=== PATIENT | female | born 1950 | race Caucasian/White ===

== ENCOUNTER → 2020-09-29 10:54 | Outpatient (CLI) | payer BC, MEDICARE, SELFPAY ==
--- NOTE | ~2020-09-29 | US_ITS ---
US pelvic limited 09/29/2020 11:17 Indication: Dysuria. Painful micturition. Procedure: High-resolution ultrasound of the bladder pre and postvoid Comparison: No prior studies for comparison. Findings: Bladder wall is unremarkable without focal mass. Prevoid volume is 86 cc. Postvoid volume i s 3 cc. Impression: 1: Minimal post void residual measuring 3 cc. Reviewed, dictated and finalized at location A. PRIVATE DUTY Impression: 1: Minimal post void residual measuring 3 cc.
== END ==
PROVIDERS: Visit Provider Internal Medicine
DX: R30.9 Painful micturition, unspecified (principal)
CPT/HCPCS: 76857

== ENCOUNTER 2021-05-07 17:32 | Outpatient (CLI) | payer BC, MEDICARE, SELFPAY ==
--- NOTE | ~2021-05-07 | MM_ITS ---
EXAMINATION: MM screening [facility] w [facility] HISTORY: Screening mammogram, family history of breast cancer in her mother. TECHNIQUE: Craniocaudal and mediolateral oblique 3-D tomosynthesis images were obtained and synthetic 2-D images were generated. CAD analysis was submitted and interpreted. COMPARISON: 09/08/2019, 09/02/2018, 08/20/2017 BREAST PARENCHYMAL COMPOSITION: The breasts are almost entirely fatty. FINDINGS: There is no evidence of suspicious mass, calcification, or architectural distortion to sugg est malignancy in either breast. There has been no suspicious interval change. IMPRESSION: 1. No mammographic evidence of malignancy. 2. Recommend routine screening mammography in one year. BI-RADS Category 1: Negative Reviewed, dictated and finalized at location A.
== END 2021-05-07 17:33 | disposition home or self-care (01) ==
PROVIDERS: PCP Internal Medicine; Visit Provider Internal Medicine
DX: Z12.31 Encounter for screening mammogram for malignant neoplasm of breast (principal)
CPT/HCPCS: 77063; 77067

== ENCOUNTER 2022-06-24 15:57 | Outpatient (CLI) | payer BC, MEDICARE, SELFPAY ==
--- NOTE | ~2022-06-24 | MM_ITS ---
EXAMINATION: MM screening [facility] BI w georges HISTORY: Screening TECHNIQUE: Craniocaudal and mediolateral oblique 3-D tomosynthesis images were obtained and synthetic 2-D images were generated. CAD analysis was submitted and interpreted. COMPARISON: Comparison to multiple prior studies sequentially, with oldest reviewed study dated 07/15. BREAST PARENCHYMAL COMPOSITION: There are scattered areas of fibroglandular density. FINDINGS: There is no evidence of suspicious mass, calcification, or architectural distortion to sugg est malignancy in either breast. There has been no suspicious interval change. IMPRESSION: 1. No mammographic evidence of malignancy. 2. Recommend routine screening mammography in one year. BI-RADS Category 1: Negative Reviewed, dictated and finalized at location A.
== END 2022-06-24 15:58 | disposition home or self-care (01) ==
PROVIDERS: PCP Internal Medicine; Visit Provider Internal Medicine
DX: Z12.31 Encounter for screening mammogram for malignant neoplasm of breast (principal)
CPT/HCPCS: 77063; 77067

== ENCOUNTER 2024-03-10 15:29 | Outpatient (CLI) | payer BC, MEDICARE, SELFPAY ==
--- NOTE | ~2024-03-10 | MM_ITS ---
EXAMINATION: MM screening [facility] w [place] HISTORY: Screening mammogram, family history of breast cancer in her mother. TECHNIQUE: Craniocaudal and mediolateral oblique 3-D tomosynthesis images were obtained and synthetic 2-D images were generated. CAD analysis was submitted and interpreted. COMPARISON: 06/24/2022, 05/07/2021, 09/08/2019 BREAST PARENCHYMAL COMPOSITION:Not Dense. There are scattered areas of fibroglandular density. FINDINGS: No suspicious mass, calcification, or architectural distortion are identified in either rafia ast to suggest malignancy. There has been no suspicious interval change. IMPRESSION: No mammographic evidence of malignancy. Recommend routine screening mammography in one year. BI-RADS Category 1: Negative Reviewed, dictated and finalized at location .
== END 2024-03-10 15:30 | disposition home or self-care (01) ==
LOC: ANHIMG 15:31
PROVIDERS: PCP Internal Medicine; Visit Provider Internal Medicine
DX: Z12.31 Encounter for screening mammogram for malignant neoplasm of breast (principal)
CPT/HCPCS: 77063; 77067

== ENCOUNTER 2025-04-06 16:00 | Outpatient (CLI) | payer MEDICARE, BC, OTHER, SELFPAY ==
--- NOTE | ~2025-04-06 | MM_ITS ---
EXAMINATION: MM screening ritesh BI w georges HISTORY: Screening TECHNIQUE: Craniocaudal and mediolateral oblique 3-D tomosynthesis images were obtained and synthetic 2-D images were generated. CAD analysis was submitted and interpreted. COMPARISON: Comparison to multiple prior studies sequentially, with oldest reviewed study dated 08/20. BREAST PARENCHYMAL COMPOSITION: The breasts are almost entirely fatty. FINDINGS: There is no evidence of suspicious mass, calcification, or architectural distortion to sug gest malignancy in either breast. Scattered benign-appearing calcifications are present. IMPRESSION: 1. No mammographic evidence of malignancy. 2. Recommend routine screening mammography in one year. BI-RADS Category 2: Benign finding(s). Reviewed, dictated and finalized at location B.
--- OUTSIDE RECORDS SUMMARY | 2025-04-06 16:06 | XMS_ITS | Clinical Summary ---
Author Organization [facility] Address [address] [place] [address] Care Team Providers Care Farm Management Agent Name Role Phone Jocelyn Zamorano MD Primary Care Provider [phone] Allergies Active Allergy Reactions Criticality Noted Date Comments Cephalexin Rash Medium 11/12/2020 Codeine Unknown,Rash Medium 01/31/2020 Doxycycline Nausea Only 08/05/2024 Epinephrine Unknown,Other (see comment) High 1978 Severe Shakiness/tremors Erythromycin Unknown,Rash Medium 01/31/2020 Lisinopril Cough Low 10/31/2021 Penicillins Hives,Swelling Medium 01/31/2020 Simvastatin Joint Pain,Other (se e comment) Low 01/31/2020 Sulfa Antibiotics Hives,Unknown Medium 01/31/2020 Medications atorvastatin (LIPITOR) 40 MG tablet Take 1 tablet (40 mg total) by mouth nightly at bedtime. 4 Active buPROPion (WELLBUTRIN) 75 MG tablet Take 1 tablet (75 mg total) by mouth every morning. 4 Active vitamin D2, ergocalciferol, (DRISDOL) 1.25 mg capsule Take 1 capsule (50,000 Units total) by mouth. 4 Active fluticasone propionate (FLONASE) 50 MCG/ACT nasal spray [place] 1 spray every day by intranasal route. 4 Active levothyroxine (SYNTHROID) 88 MCG tablet Take 1 tablet (88 mcg total) by mouth every morning. 4 Active iron polysacch [id number] (POLY-IRON 150 FORTE) 150-0.025-1 MG Cap capsule Take 1 capsule by mouth every other day. 4 Active losartan (COZAAR) 50 MG tablet Take 1 tablet (50 mg total) by mouth daily. 4 Active metFORMIN (GLUCOPHAGE) 500 MG tablet Take 1 tablet twice a day by oral route for 90 days. 4 Active senna-docusate (SENOKOT-S) 8.6-50 MG tablet Take 1 tablet by mouth daily. Active vitamin B-12 (CYANOCOBALAMIN ) (CYANOCOBALAMIN ) 1000 mcg tablet Take 1 tablet (1,000 mcg total) by mouth daily. 5 Active sucralfate (CARAFATE) 1 G tablet TAKE 1 TABLET BY MOUTH TWICE DAILY OK TO CUT IN HALF OR CRUSH IF NEEDED 5 Active omeprazole (PRILOSEC) 40 MG capsule Take 1 capsule (40 mg total) by mouth 2 (two) times a day. 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 11/18/2023 Hypocalcemia 01/13/2023 Obstructive sleep apnea of adult 01/12/2023 Sleep apnea 08/09/2022 Overview (08/05/2024): on sleep study 08/06/22 Iron deficiency 04/25/2022 Anemia 04/05/2022 Allergic rhinitis due to pollen 04/01/2022 Arthralgia of left ankle 04/01/2022 History of severe acute resp iratory syndrome coronavirus 2 (SARS-CoV-2) disease 04/01/2022 Mixed stress and urge urinary incontinence 04/01 Fatigue 06/20/2021 Nonalcoholic fatty liver 04/07/2021 Overactive bladder 03/20/2021 Snoring 03/20/2021 History of transcatheter aortic valve replacemen t (TAVR) 01/30/2021 DM (diabetes mellitus) ([facility]) 021 Increased frequency of urination 10/14/2020 Left hemiparesis ([facility]) 09/09/2020 Carotid artery stenosis 07/14/2020 Chronic constipation 06/11/2020 Nonrheumatic aortic valve stenosis 04/11/2020 Overview (08/05/2024): nonrheumatic S/P TAVR 12/10/20 Hemiparesis affecting left s noe as late effect of stroke ([facility]) 04/04/2020 Hypothyroidism 04/04/2020 Overweight 04/04/2020 Vitamin D deficiency 04/04/2020 Swelling of upper extremity 03/22/2020 History of cerebrovascular accident 03/12/2020 Hyperlipidemia 03/12/2020 Peripheral vascular disease 07/10/2019 Overview (08/05/2024): MILD on CARLOS A 06/08/19 Osteoarthritis of knee 06/09/2019 Solitary pulmonary nodule 12/09/2018 Gastroesophageal reflux disease without esophagi tis 11/17/2018 Benign hypertension 07/22/2017 Atherosclerosis of aorta 04/27/2017 Overview (08/05/2024): on CXR 04/27/17 History of malignant neoplasm of colon 6 Encounters Date Type Department Care Team Description 02/15/2025 1:30 PM CDT Office Visit [facility] [address] [address] Karson Cabral MD Hypertension (Follow up); Aortic Valve Stenosis; Cva 02/15/2025 Travel 02/09/2025 Results Follow-Up [facility] [address] [address] Telma Butt RN USE ECHOCARDIOGRAM 02/07/2025 1:14 PM CDT - 02/07/2025 11:59 PM CDT Hospital Encounter [facility] [place] [address] Karson Cabral MD Discharge Disposition: Home or Self Care (Routine Discharge) 02/07/2025 Travel from Last 3 Months Social History Tobacco Use Types Packs/Day Years Used Date Smoking Tobacco: Every Day Cigarettes Smokeless Tobacco: Never Tobacco Cessation:Ready to Q uit: Not Asked; Counseling Given: Not Answered Alcohol Use Standard Drinks/Week Comments Not Currently 0 (1 standard drink = 0.6 oz pur e alcohol) Comments Unknown Sex and Gender Information Value Date Recorded Sex Assigned at Female 02/07/2025 1:10 PM CDT Legal Sex Female 5:07 PM CDT Gender Identity Not on file Sexual Orientation Not on file Last Filed Vital Signs Vital Sign Reading Time Taken Comments Blood Pressure 126/62 02/15/2025 1:27 PM CDT Pulse 68 02/15/2025 1:27 PM CDT Temperature - - Respiratory Rate - - Oxygen Saturation 97% 02/15/2025 1:27 PM CDT Inhaled Oxygen Concentration - - Weight 86.6 kg (191 lb) 02/15/2025 1:27 PM CDT Height 154.9 cm (5' 1) 02/15/2025 1:27 PM CDT Body Mass Index 36.09 02/15/2025 1:27 PM CDT Plan of Treatment Upcoming Encounters Date Type Department Care Team (Late st Contact Info) Description 08/23/2025 1:30 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 [address] [place] [address] Carissa Mancini FNP [address] [facility] [address] [place] [address] Health Maintenance Due Date Last Done Comments ASCVD LDL 1950 Colorectal Cancer Screening Colonoscopy (10 Years) 1950 Kidney Health Evaluation 1950 Lipid Panel 1950 Diabetes: Retinopathy Eye Exam 1967 Hepatitis C 1967 DTaP, Tdap and Td Vaccines (1 - Tdap) 1968 Pneumococcal Vaccine: 50+ Years (1 of 2 - PCV) 1968 Zoster Vaccines (1 of 2) 1999 Annual Medicare Wellness Visit 2014 Dexa Scan (General) 2014 Hemoglobin A1C 05/02/2020 01/31/2020 COVID-19 Vaccine ( season) 2024 07/03/2023, 07/06/2022, 06/28/2021, Additional history exists RSV Immunization or 60+ Years (1 - 1-dose 75+ series) 2024 Meningococcal B Vaccine Aged Out No l onger eligible based on patient's age to complete this topic Meningococcal Vaccine Aged Out No gayathri cristo eligible based on patient's age to complete this topic RSV Immunizations Under 20 Months Aged Out No longer eligible based on patient's age to complete this topic Procedures Procedure Name Priority Date/Time Associated Diagnosis Comments USE ECHOCARDIOGRAM Routine 02/07/2025 2: 34 PM CDT S/P TAVR (transcatheter aortic valve replacement) from Last 3 Months Results * USE ECHOCARDIOGRAM (02/07/2025 2:34 PM CDT) Anatomical Region Laterality Modality Cardiac Echocardiogram 02/07/2025 1:56 PM CDT Narrative 02/09/2025 4:04 PM CDT Echocardiography Report Pat.Name: VEDA SORIA Pat.ID: [id number] St.Date: 02/07/2025 Refer.: [id number] JORDY LUZ EWDPROV EWDPROV Exam Time: 1:56:00 PM Study Type:ECHO WITH CARDIAC DOPPLER COMP Height: 61 in Weight: 181 lb BSA: 1.81 m2 Age: 11 1950,74Y Sex: F BP: 144/77 HR: 63 bpm Sonogrphr: Casandra Altman Pat. Stat.:Outpatient Reason for Study:S/P TAVR Procedures: 2D, M-mode, Doppler, Color Flow, The study quality is technically adequate. Race: W ++++++++++++++++++++++++++++++++++++ SUMMARY: ++++++++++++++++++++++++++++++++++++ Left ventricle is normal in size and systolic function Estimated EF of 55-60% Mild LVH Right ventricle is normal in size and systolic function Well functioning TAVR Normal estimated pulmonary pressures. ++++++++++++++++++++++++++++++++++++ FINDINGS: ++++++++++++++++++++++++++++++++++++ LV: The left ventricular size is normal. The left ventricular systolic function is normal. Estimated left ventricular ejection fraction is 55-60%. Mild concentric left ventricular hypertrophy. Left ventricular diastolic function is abnormal (grade 1 - impaired relaxation). WM: Wall motion appears normal in all segments. RV: The right ventricular size is normal. Right ventricular systolic function is normal. IVS: No evidence of ventricular septal defect. LA: The left atrial size is normal. The left atrial volume is normal ( less than 34 ml/M2). RA: Right atrial size is normal. IAS: Atrial septum appears intact. DILIA: No evidence of pericardial effusion. AO: Normal aortic root. PA: Estimated right atrial pressure of 3 mmHg. SVn: Inferior vena cava is normal. AV: The peak velocity across the aortic valve measures 3.08m/sec with a peak gradient of 49.1mmHg and a mean gradient of 23.8mmHg. The calculated aortic valve area is 1.71cm2. Aortic valve prosthesis visualized. No evidence of dilia-prosthetic aortic valve regurgitation. No evidence of central prosthetic aortic valve regurgitation. MV: Trace mitral regurgitation. No evidence of mitral valve stenosis. PV: No evidence of pulmonic valve stenosis. No evidence of pulmonic regurgitation. TV: A trace of tricuspid regurgitation. Right ventricular systolic pressure is <20 mmHg. No evidence of tricuspid valve stenosis. ++++++++++++++++++++++++++++++++++++ MEASUREMENTS: ++++++++++++++++++++++++++++++++++++ DOPPLER LVOT LVOTpkPG 13.2 mmHg LVOT SV 220 ml LVOT TVI 48 cm PSV 182 cm/s LVOTmnPG 7.6 mmHg AV Forward Flow AV TVI 77.1 cm AV pkPG 49 mmHg AV pkVel 350 cm/s (100-170)* Area (TVI) 2.86 cm2 (3-5)* AV mnPG 23.8 mmHg Area (Adrien) 2.39 cm2 (3-5)* MV Forward Flow MV pkE 82 cm/s (60-130) MV pkA 99 cm/s PV Forward Flow PV pkVel 87 cm/s (60-90)+ PV AC 110 msec PV pkPG 3 mmHg TV Regurg Flow TV pkPG 16.8 mmHg TV pkVel 205 cm/s (30-70)* TV Forward Flow TV pkE 40 cm/s Lat E' Lat e 9.21 cm/s Lat E/E' Lat E/e 8.9 Med E' Med e 8.82 cm/s Med E/E' Med E/e 9.3 AV Antegrade Flow AV AC/ET 0.21 Ratio of LVOT M 0.52 AC 68 millisecond Ratio of LVOT V 0.622 AV ET 327 millisecond Left Atrium CO 2.6 l/min CO 0.6 l/min Left Atrial Eje 54.7 % Left Atrial Eje 23 % Major [place] (End 4.3 cm Major [place] (End 4.7 cm Left Atrial ED 19.8 ml/m2 Left Atrial ED 17.6 ml/m2 Major [place] (End 5.4 cm Major [place] (End 5.2 cm Left Atrial ES 43.7 ml/m2 Left Atrial ES 22.9 ml/m2 Global Longitud 24.5 % Global Longitud 12.8 % HR 59 bpm HR 58 bpm SV 23.9 ml/m2 SV 5.2 ml/m2 LA Biplane CO 1.4 l/min Left Atrial ES 32.3 ml/m2 Left Atrial Eje 39.7 % Global Longitud 18.7 % Major [place] (End 4.7 cm HR 59 bpm Left Atrial ED 19.5 ml/m2 SV 12.8 ml/m2 Major [place] (End 5.4 cm Left Ventricle Left Ventricula 193 mmHg SV 32.5 ml/m2 MV Pk Adrien to LV 9.09 CO 4.2 l/min CO 3.5 l/min LVEF 51.8 % LVEF 53.3 % Left Ventricle 8.7 cm Left Ventricle 8.1 cm LVEDV 76.5 ml/m2 LVEDV 61 ml/m2 Left Ventricle 7.2 cm Left Ventricle 6.8 cm LVESV 36.9 ml/m2 LVESV 28.5 ml/m2 Global Longitud -18.9 % Global Longitud -19.2 % HR 58 bpm HR 59 bpm LV Mass 68.6 g/m2 LV Mass 44.9 g/m2 SV 39.6 ml/m2 LV Biplane CO 4 l/min LVESV 33.3 ml/m2 LVEF 53.1 % Global Longitud -19.1 % Left Ventricle 8.7 cm HR 59 bpm LVEDV 71 ml/m2 LV Mass 56.1 g/m2 Left Ventricle 7.2 cm SV 37.7 ml/m2 LV Triplane Global Longitud -19 % MV Antegrade Flow Mitral Valve A 1.21 MV E Decel time 283 millisecond MV E/A 0.83 PV Antegrade Flow Acceleration Sl 698 cm/s2 Right Atrium CO 2.1 l/min Volume (Systole 34.5 ml/m2 Cardiac ejectio 59.1 % Global Longitud 39.5 % Major [place] (End 3.2 cm HR 58 bpm Volume (Diastol 14.1 ml/m2 SV 20.4 ml/m2 Major [place] (End 5 cm Right Ventricle Right Ventricul 10.7 centimeters per second Right Ventricul 28.5 % Right Ventricul 13.6 square centimeters per square meter Global Longitud -12.1 % Major [place] (End 8.2 cm Global Longitud -16.7 % Major [place] (End 7.3 cm Global Longitud -6.1 % Right Ventricul 9.8 square centimeters per square meter HR 58 bpm 2D LVPW LVPWd 1.07 cm Left Atrium LA a-p 3.62 cm (2.8-3.4)* Major [place] (Sys 5.33 cm End Diastolic A 0.82 Diameter (Systo 2 cm/m2 Ratios IVS Ventricular Septum IVSd 1.04 cm Left Ventricle LVIDd 4.22 cm (4.3-5.1)* LV Mass 149 gram LVIDs 2.95 cm (2-4) Left Ventricle 0.51 Aorta AO Dd 1.64 cm LA Single Plane Left Atrium Are 15.8 cm2 LVOT Cardiovascular 4.6 cm2 Cardiovascular 2.42 cm Right Atrium Major [place] (Sys 4.03 cm RA Single Plane Right Atrium Ar 12 cm2 Volume (Systole 15.9 ml/m2 Right Ventricle Major [place] (Maria Dolores 2.36 cm RVIDd 3.78 cm MMODE Tricuspid Valve Tricuspid annul 2.36 cm <Electronic Signature> 02/09/2025 04:04 PM Karosn Cabral M.D. Procedure Note Karson Cabral MD - 02/09/2025 Echocardiography Report Pat.Name: VEDA SORIA Pat.ID: [id number] St.Date: 02/07/2025 Refer.: [id number] JORDY LUZ EWDPROV EWDPROV Exam Time: 1:56:00 PM Study Type:ECHO WITH CARDIAC DOPPLER COMP Height: 61 in Weight: 181 lb BSA: 1.81 m2 Age: 11 1950,74Y Sex: F BP: 144/77 HR: 63 bpm Sonogrphr: Casandra Altman Pat. Stat.:Outpatient Reason for Study:S/P TAVR Procedures: 2D, M-mode, Doppler, Color Flow, The study quality is technically adequate. Race: W ++++++++++++++++++++++++++++++++++++ SUMMARY: ++++++++++++++++++++++++++++++++++++ Left ventricle is normal in size and systolic function Estimated EF of 55-60% Mild LVH Right ventricle is normal in size and systolic function Well functioning TAVR Normal estimated pulmonary pressures. ++++++++++++++++++++++++++++++++++++ FINDINGS: ++++++++++++++++++++++++++++++++++++ LV: The left ventricular size is normal. The left ventricular systolic function is normal. Estimated left ventricular ejection fraction is 55-60%. Mild concentric left ventricular hypertrophy. Left ventricular diastolic function is abnormal (grade 1 - impaired relaxation). WM: Wall motion appears normal in all segments. RV: The right ventricular size is normal. Right ventricular systolic function is normal. IVS: No evidence of ventricular septal defect. LA: The left atrial size is normal. The left atrial volume is normal ( less than 34 ml/M2). RA: Right atrial size is normal. IAS: Atrial septum appears intact. DILIA: No evidence of pericardial effusion. AO: Normal aortic root. PA: Estimated right atrial pressure of 3 mmHg. SVn: Inferior vena cava is normal. AV: The peak velocity across the aortic valve measures 3.08m/sec with a peak gradient of 49.1mmHg and a mean gradient of 23.8mmHg. The calculated aortic valve area is 1.71cm2. Aortic valve prosthesis visualized. No evidence of dilia-prosthetic aortic valve regurgitation. No evidence of central prosthetic aortic valve regurgitation. MV: Trace mitral regurgitation. No evidence of mitral valve stenosis. PV: No evidence of pulmonic valve stenosis. No evidence of pulmonic regurgitation. TV: A trace of tricuspid regurgitation. Right ventricular systolic pressure is <20 mmHg. No evidence of tricuspid valve stenosis. ++++++++++++++++++++++++++++++++++++ MEASUREMENTS: ++++++++++++++++++++++++++++++++++++ DOPPLER LVOT LVOTpkPG 13.2 mmHg LVOT SV 220 ml LVOT TVI 48 cm PSV 182 cm/s LVOTmnPG 7.6 mmHg AV Forward Flow AV TVI 77.1 cm AV pkPG 49 mmHg AV pkVel 350 cm/s (100-170)* Area (TVI) 2.86 cm2 (3-5)* AV mnPG 23.8 mmHg Area (Adrien) 2.39 cm2 (3-5)* MV Forward Flow MV pkE 82 cm/s (60-130) MV pkA 99 cm/s PV Forward Flow PV pkVel 87 cm/s (60-90)+ PV AC 110 msec PV pkPG 3 mmHg TV Regurg Flow TV pkPG 16.8 mmHg TV pkVel 205 cm/s (30-70)* TV Forward Flow TV pkE 40 cm/s Lat E' Lat e 9.21 cm/s Lat E/E' Lat E/e 8.9 Med E' Med e 8.82 cm/s Med E/E' Med E/e 9.3 AV Antegrade Flow AV AC/ET 0.21 Ratio of LVOT M 0.52 AC 68 millisecond Ratio of LVOT V 0.622 AV ET 327 millisecond Left Atrium CO 2.6 l/min CO 0.6 l/min Left Atrial Eje 54.7 % Left Atrial Eje 23 % Major [place] (End 4.3 cm Major [place] (End 4.7 cm Left Atrial ED 19.8 ml/m2 Left Atrial ED 17.6 ml/m2 Major [place] (End 5.4 cm Major [place] (End 5.2 cm Left Atrial ES 43.7 ml/m2 Left Atrial ES 22.9 ml/m2 Global Longitud 24.5 % Global Longitud 12.8 % HR 59 bpm HR 58 bpm SV 23.9 ml/m2 SV 5.2 ml/m2 LA Biplane CO 1.4 l/min Left Atrial ES 32.3 ml/m2 Left Atrial Eje 39.7 % Global Longitud 18.7 % Major [place] (End 4.7 cm HR 59 bpm Left Atrial ED 19.5 ml/m2 SV 12.8 ml/m2 Major [place] (End 5.4 cm Left Ventricle Left Ventricula 193 mmHg SV 32.5 ml/m2 MV Pk Adrien to LV 9.09 CO 4.2 l/min CO 3.5 l/min LVEF 51.8 % LVEF 53.3 % Left Ventricle 8.7 cm Left Ventricle 8.1 cm LVEDV 76.5 ml/m2 LVEDV 61 ml/m2 Left Ventricle 7.2 cm Left Ventricle 6.8 cm LVESV 36.9 ml/m2 LVESV 28.5 ml/m2 Global Longitud -18.9 % Global Longitud -19.2 % HR 58 bpm HR 59 bpm LV Mass 68.6 g/m2 LV Mass 44.9 g/m2 SV 39.6 ml/m2 LV Biplane CO 4 l/min LVESV 33.3 ml/m2 LVEF 53.1 % Global Longitud -19.1 % Left Ventricle 8.7 cm HR 59 bpm LVEDV 71 ml/m2 LV Mass 56.1 g/m2 Left Ventricle 7.2 cm SV 37.7 ml/m2 LV Triplane Global Longitud -19 % MV Antegrade Flow Mitral Valve A 1.21 MV E Decel time 283 millisecond MV E/A 0.83 PV Antegrade Flow Acceleration Sl 698 cm/s2 Right Atrium CO 2.1 l/min Volume (Systole 34.5 ml/m2 Cardiac ejectio 59.1 % Global Longitud 39.5 % Major [place] (End 3.2 cm HR 58 bpm Volume (Diastol 14.1 ml/m2 SV 20.4 ml/m2 Major [place] (End 5 cm Right Ventricle Right Ventricul 10.7 centimeters per second Right Ventricul 28.5 % Right Ventricul 13.6 square centimeters per square meter Global Longitud -12.1 % Major [place] (End 8.2 cm Global Longitud -16.7 % Major [place] (End 7.3 cm Global Longitud -6.1 % Right Ventricul 9.8 square centimeters per square meter HR 58 bpm 2D LVPW LVPWd 1.07 cm Left Atrium LA a-p 3.62 cm (2.8-3.4)* Major [place] (Sys 5.33 cm End Diastolic A 0.82 Diameter (Systo 2 cm/m2 Ratios IVS Ventricular Septum IVSd 1.04 cm Left Ventricle LVIDd 4.22 cm (4.3-5.1)* LV Mass 149 gram LVIDs 2.95 cm (2-4) Left Ventricle 0.51 Aorta AO Dd 1.64 cm LA Single Plane Left Atrium Are 15.8 cm2 LVOT Cardiovascular 4.6 cm2 Cardiovascular 2.42 cm Right Atrium Major [place] (Sys 4.03 cm RA Single Plane Right Atrium Ar 12 cm2 Volume (Systole 15.9 ml/m2 Right Ventricle Major [place] (Maria Dolores 2.36 cm RVIDd 3.78 cm MMODE Tricuspid Valve Tricuspid annul 2.36 cm <Electronic Signature> 02/09/2025 04:04 PM Karson Cabral M.D. us Karson Cabral MD ECHO Final Resul t from Last 3 Months Insurance MEDICARE Care Teams Farm Management Agent Relationship Specialty Start Date End Date Jocelyn Zamorano MD [address] [facility] [address] [place] [address] PCP - General INTERNAL MEDICINE 08/05/24
--- OUTSIDE RECORDS SUMMARY | 2025-04-06 16:06 | XMS_ITS | Patient Health Record ---
Author Organization [facility] Address [address] [place], [place] [id number] Support Name Relationship Address Phone NINA MUSTAFA Guarantor Unknown Reason For Referral No Information Plan Of Treatment No Information Insurance Providers Payer Name Payer Address Payer Phone Subscriber Number Group Number Insured Name Patient Relationship to Insured Coverage Start Date Coverage End Date Medicare Part B [place] [address] [place] [phone] [id number] NINA CROW Self - patient is the insured [facility] ATTN CLAIMS [address] [place] [address] [id number] NINA CROW Self - patient is the insured
--- OUTSIDE RECORDS SUMMARY | 2025-04-06 16:06 | XMS_ITS | Clinical Summary ---
Author Organization [facility] al Address [address] [place] [address] Care Team Providers Care Substation Superintendent Name Role Phone Jocelyn Zamorano MD Primary Care Provider [phone] Mac Montano MD Unavailable Marie Newman MD Unavailable Vikram Oneal MD Unavailable Allergies Active Allergy Reactions Criticality Noted Date Comments Codeine Rash Medium 01/31/2020 Doxycycline Nausea only Low 08/05/2024 Epinephrine Other (See comments) High 1978 Severe Shakiness/tremors Erythromycin Base Rash Medium 01/31/2020 Cephalexin Rash Medium 11/12/2020 Lisinopril Cough Low 10/31/2021 Penicillins Hives,Swelling Medium 01/31/2020 Pravastatin Joint pain Low 01/11/2025 Simvastatin Joint pain Low 01/31/2020 Sulfa (Sulfonamide Antibiotics) Hives Medium 01/31/2020 Medications omeprazole (PriLOSEC) 40 mg capsule Take 1 capsule (40 mg total) by mouth daily 0 Active ergocalciferol (VITAMIN D) 50,000 unit capsule Take 1 capsule (50,000 Units total) by mouth every 30 (thirty) days First Thursday of the month Active atorvastatin (LIPITOR) 40 mg tabletIndicatio ns:hyperlipidem ia Take 1 tablet (40 mg total) by mouth daily 30 tablet 11 0 Active senna-docusate (PERICOLACE) 8.6-50 mg Take 1 tablet by mouth nightly Active levothyroxine (SYNTHROID) 88 mcg tablet Take 77 mcg by mouth daily before breakfast Active aspirin 81 mg chewable tablet Take 1 tablet (81 mg total) by mouth daily 30 tablet 1 1 Active oxyBUTYnin (DITROPAN) 5 mg tabletIndicatio ns:Urinary Urgency Take 2 tablets (10 mg total) by mouth nightly Taking 10mg at bedtime Active metFORMIN (GLUCOPHAGE) 500 mg tablet Take 2 tablets (1,000 mg total) by mouth 2 (two) times a day 3 Active buPROPion (WELLBUTRIN) 75 mg tablet Take 1 tablet (75 mg total) by mouth every morning 4 Active losartan (COZAAR) 50 mg tablet Take 1 tablet (50 mg total) by mouth daily 4 Active iron ps [id number] ic acid (Poly-Iron 150 Forte) 150-25-1 mg-mcg-mg capsule TAKE 1 CAPSULE BY MOUTH EVERY OTHER DAY 4 Active cyanocobalamin (Vitamin B-12) 1,000 mcg tablet Take 1 tablet (1,000 mcg total) by mouth daily 5 Active Hospital, Clinic, or Other Facility Administered Medication Ordered Dose Route Frequency Start Date End Date Status perflutren protein-a (OPTISON) 3 mL in sodium chloride 0.9% 8 mL syringe 1 - 8 mL IV Once in imaging 01/16/2021 Active perflutren protein-a (OPTISON) 3 mL in sodium chloride 0.9% 8 mL syringe 1 - 8 mL IV Once in imaging 11/19/2021 Active Active Problems Problem Noted Date Diagnosed Date History of transcatheter aortic valve replacemen t (TAVR) 01/30/2021 Assessment & Plan (05/27/2024 10:47 AM CDT): Aortic valve stenosis s/p TAVR w/ 23mm Murtaza 3 Ultra 11/2020 (Sintek/Kachroo). Recent echocardiogram from November of 2023 noted a preserved ejection fraction and TAVR with mild paravalvular AR and MPG of 23 mm Hg. She is following closely with Hematology for anemia. She has an elevated LDH and low haptoglobin and therefore was concerned about hemolysis from valve. Discussed this with director market intelligence, Dr. Oneal, and this is not a typical occurrence in TAVR and therefore low probability of etiology of anemia. Discussed with patient about obtaining repeat echocardiogram to ensure no changes in the valve since November. She would prefer to await any further testing until establishment with new local food and beverage outlets manager. SBE prophylaxis. Continue aspirin therapy. 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 Although risks for SAVR are not markedly high, patient with continued residual left sided hemiparesis from CVA and rehabibility from SAVR remains a concern. Patient prefers TAVR, understanding the risks associated. Her pre-operative work-up is complete. She has had ECHO, LHC, TAVR CT. Will discuss with valve team re: timing and planning of TAVR. STS risk scores: Risk of Mortality:1.838% Renal Failure:1.068% Permanent Stroke:1.410% Prolonged Ventilation:7.213% DSW Infection:0.084% Reoperation:2.509% Morbidity or Mortality:10.593% Short Length of Stay:43.171% Long Length of Stay:3.686% Patient seen and discussed with Dr. Newman. Overweight 04/04/2020 Vitamin D deficiency 04/04/2020 Hypothyroidism 04/04/2020 Assessment & Plan (12/11/2020 10:52 AM CDT): Continue home synthroid Hyperlipidemia 04/04/2020 Assessment & Plan (05/26/2024 9:33 PM CDT): Continue atorvastatin. Hemiparesis affecting left side as late effect o f stroke 04/04/2020 Assessment & Plan (12/11/2020 10:53 AM CDT): PT/OT pt reports baseline weakness Peripheral vascular disease 07/10/2019 Osteoarthritis of knee 06/09/2019 Obesity with body mass index 30 or greater 11/18 Assessment & Plan (12/11/2020 10:51 AM CDT): BMI 31.95 Gastroesophageal reflux disease without esophagi tis 11/18/2018 Benign hypertension 07/23/2017 Assessment & Plan (05/26/2024 9:33 PM CDT): Well controlled. Continue regimen with losartan 50 mg daily. Assessment & Plan (12/11/2020 10:52 AM CDT): -keep SBP < 160 post-operatively -no beta blockers due to risk of CHB post-TAVR -hold PRASHANTH and ARBs due to renal toxicity following TAVR during which contrast is given -currently BP well controlled -> will use hydralazine for BP control if needed Atherosclerosis of aorta 04/27/2017 History of malignant neoplasm of colon 6 Encounters Date Type Department Care Team Description 01/11/2025 10:30 AM CDT Office Visit [facility] Orthopedics and Sports Medicine [address] [place] [id number] Mac Delaney MD Primary osteoarthritis of right knee (Primary Dx) 01/06/2025 1:51 PM CDT Anesthesia Event [facility] [address] [place] [address] America Reynolds MD 01/06/2025 12:00 PM CDT - 01/06/2025 12:30 PM CDT Surgery [facility] [address] [place] [address] Lucia Arroyo MD ESOPHAGOGASTRODUODENOSCOPY BIOPSY 01/06/2025 11:04 AM CDT - 01/06/2025 2:55 PM CDT Hospital Encounter [facility] [address] [place] [id number] Lucia Arroyo MD Epigastric pain Discharge Disposition: Discharge to home or self care from Last 3 Months Immunizations Immunization Administration Dates Next Due Pfizer SARS-CoV-2 Monovalent Vaccination (12+ Yrs) PURPLE 06/28/2021,11/26/2020 Surgical History Surgery Date Site/Laterality Comments HEMICOLECTOMY TOTAL ABDOMINAL HYSTERECTOMY W/ BILATERAL SALPINGOOPHORECTOMY AORTIC VALVE REPLACEMENT COLONOSCOPY 09/14/2022 - 09/13/2023 ESOPHAGOGASTRODUODENOSCOPY Medical History Medical History Date Comments Colon cancer (HCC) Hypercholesteremia Mitral valve prolapse HTN (hypertension) Thyroid disease Aortic stenosis Stroke (HCC) 01/2020 Heart murmur Overactive bladder GERD (gastroesophageal reflux disease) Hypothyroidism Helen's disease Family History Medical History Relation Name Comments Cancer Brother Cancer Mother Diabetes Mother Diabetes Paternal Grandfather Hypertension Paternal Grandfather Relation Name Status Comments Brother Mother Paternal Grandfather Social History Tobacco Use Types Packs/Day Years Used Date Smoking Tobacco: Every Day Cigarettes 1 55.6 Started: 1970 Passive Smoke Exposure: Current Smokeless Tobacco: Never Tobacco Cessation:Ready to Q uit: No; Counseling Given: Not Answered Social Connection and Isolat ion Panel [NHANES] Answer Date Recorded In a typical week, how many times do you talk on the phone with family, friends, or neighbors? More than three times a week 02/01/2020 How often do you get togethe r with friends or relatives? Twice a week 02/01/2020 How often do you attend chur or roman catholic services? More than 4 times per year 02/01/2020 Do you belong to any clubs o r organizations such as yarsanism groups, unions, fraternal or athletic groups, or school groups? No 02/01/2020 How often do you attend meet ings of the clubs or organizations you belong to? Never 02/01/2020 Are you , , di vorced, , never , or living with a partner? 02/01/2020 AUDIT-C Answer Date Recorded Q1: How often do you have a drink containing alcohol? Never 01/06/2025 Q2: How many drinks containi ng alcohol do you have on a typical day when you are drinking? Patient does not drink Q3: How often do you have si x or more drinks on one occasion? Never 01/06/2025 Overall Financial Resource Strain (CARDIA) Answe r Date Recorded How hard is it for you to pa y for the very basics like food, housing, medical care, and heating? Not hard at all 02/01/2020 PHQ-2 Answer Date Recorded PHQ-2 Total Score (If total score is 3 or more points, staff should administer the PHQ-9) 0 01/31/2020 Hunger Vital Sign Answer Date Recorded Within the past 12 months, y ou worried that your food would run out before you got the money to buy more. Never true 02/01/20 20 Within the past 12 months, t he food you bought just didn't last and you didn't have money to get more. Never true 02/01/2020 PRAPARE - Transportation Answer Date Re corded In the past 12 months, has l ack of transportation kept you from medical appointments or from getting medications? No 01/13 In the past 12 months, has l ack of transportation kept you from meetings, work, or from getting things needed for daily living? No 02/01/2020 Personal Safety Answer Date Recorded Have you ever been in or are you currently in a harmful physical or emotional relationship or is someone making you feel afraid or unsafe? Denies 01/06/2025 Comments No Sex and Gender Information Value Date Recorded Sex Assigned at Not on file Legal Sex Female 11:40 PM WHEEL AND CASTER REPAIRER Gender Identity Not on file Sexual Orientation Straight 07/08/2020 10 :27 PM CDT Obstetrics History Last Filed Vital Signs Vital Sign Reading Time Taken Comments Blood Pressure 133/84 01/06/2025 2:20 PM CDT Pulse 89 01/06/2025 2:20 PM CDT Temperature 36.6 C (97.9 F) 01/06/2025 2:05 PM CDT Respiratory Rate 19 01/06/2025 2:20 PM CDT Oxygen Saturation 97% 01/06/2025 2:20 PM CDT Inhaled Oxygen Concentration - - Weight 85.7 kg (189 lb) 01/06/2025 11:41 AM CDT Height 154.9 cm (5' 1) 12/30/2024 12:14 PM CDT Body Mass Index 35.71 12/30/2024 12:14 PM CDT Plan of Treatment Health Maintenance Due Date Last Done Comments Albumin Creatinine Ratio, Urine 1950 Hepatitis C Screening 1950 Dilated Eye Exam 1950 Foot Exam 1950 DTaP/Tdap/Td Vaccine (1 - Tdap) 1960 Hepatitis B Screening 1967 Pneumococcal vaccine 65+ (1 of 2 - PCV) 1968 Lung Cancer Screening 1999 Zoster Vaccine (1 of 2) 1999 Well Visit 65+ 2014 Hemoglobin A1C 08/02/2020 01/31/2020, 01/31/2020 Depression Screening 01/30/2021 01/31/2020, 01/31/20 20 Lipid Panel 12/10/2021 12/10/2020, 01/13, 01/31/2020 eGFR 11/19/2022 11/19/2021, 09/14, 01/16/2021 Osteoporosis Screening-Bone Density Scan 09/19/2023 09/19/2021, 09/10/2020 Covid-19 Vaccine (2023-2 5 season) 2024 06/28/2021, 11/26/2020 Influenza Vaccine (#1) 2025 Fall Risk Assessment 01/06/2026 01/06/2025 Colon Cancer Screening-Colonoscopy 03/06/20332022 Breast Cancer Screening-Mammogram Discontinued 018, 08/15/2016 Colon Cancer Screening-CT Colonography Discontinued 03/06/2023 Colon Cancer Screening-DNA Stool Discontinued 03/06/20 Colon Cancer Screening-FIT Discontinued 03/06/2023 Colon Cancer Screening-Sigmoidoscopy Discontinued 02/13 Medical Devices Implanted Type Area Parts Puller Device Identifier Shelf Expiration Date Model / Serial / Lot [employer] [id number] Angio-Seal Evolution 6fr .035in Guidewire Bypass Tube Suture - [id number] - [id number] Implanted:Qty: 1 on 12/10/2020 by Vikram Oneal MD at [facility] Collagen [employer] 08/13/2021 [id number] / [id number] / [id number] [employer] [id number] Valve Heart 23mm Murtaza 3 Transcatheter - [id number] - [id number] Implanted:Qty: 1 on 12/10/2020 by Vikram Oneal MD at [facility] Prosthetic Valve Aortic Valve [employer] 06/04/2022 [id number] / [id number] / Description:Transcatheter Ao rtic Valve Valve Left: Heart Procedures Procedure Name Priority Date/Time Associated Diagnosis Comments TX ARTHROCENTESIS ASPIR&/INJ MAJOR JT/BURSA W/O US Routine 01/11/2025 10:30 AM CDT Primary osteoarthritis of right knee SURGICAL PATHOLOGY Routine 01/06/2025 1:59 PM CDT Epigastric pain EGD 01/06/2025 1:52 PM CDT ESOPHAGOGASTRODUODENOSCOPY BIOPSY 01/06/2025 1:50 PM CDT epigastric pain COLONOSCOPY 03/06/2023 2:49 PM CDT EGFR Routine 11/19/2021 3:39 PM WHEEL AND CASTER REPAIRER S/P TAVR (transcatheter aortic valve replacement) LIPID PANEL Routine 12/10/2020 8:08 PM CDT HEMOGLOBIN A1C STAT 01/31/2020 10:07 AM CDT from Last 3 Months or Most Recently Relevant to Health Maintenance Results * TX ARTHROCENTESIS ASPIR&/INJ MAJOR JT/BURSA W/O US (01/11/2025 10:30 AM CDT) Mac Ferraro MD - 01/11/2025 10:30 AM CDT Mac Delaney MD 01/11/2025 10:37 AM Large Joint (Hip, Knee, Shoulder) Injection: R knee Performed by: Mac Delaney MD Authorized by: Mac Delaney MD Large Joint Injection/Aspiration: Consent Given by: Patient Timeout: prior to procedure the correct patient, procedure, and site was verified Verbal consent obtained: Yes Supporting Documentation: Indications: Pain Procedure Details: Location: Knee Site: R knee Prep: patient was prepped and draped in usual sterile fashion Needle Size: 18 G Approach: Superior lateral Medications: 3 mL lidocaine 10 mg/mL (1 %); 40 mg triamcinolone 40 mg/mL Patient tolerance: Patient tolerated the procedure well with no immediate complications us Mac Delaney MD IN CLINIC/BEDSIDE ORDERABLES Final Result * Surgical pathology (01/06/2025 1:59 PM CDT) Tissue (Gastric/Stomach biopsy) 01/06/2025 1:59 PM CDT Tissue specimen (specimen) (Gastric/Stomach biopsy) 01/06/2025 1:59 PM CDT Narrative PATHOLOGY [facility] - 01/09/2025 3:51 PM CDT [facility] Department of Pathology [address] [place] [address] Note to Patients: This report may contain a detailed description of human tissue sent by a health care provider to the laboratory for pathologic evaluation. The content of this report is essential for diagnosis and may provide important critical findings. This information may be unfamiliar to patients to review without a medical professional present. It is advised that the patient review this report in the presence of a health care provider who can answer questions and explain the details. Final Report Patient Name: VEDA SORIA : 1950 (Age: 74) Gender: F Address: [address] [place] [address] Hospital #: [id number] Service: Gastro Location: Patient Type: [facility] OUTPATIENT Taken: 01/06/2025 Received: 01/06/2025 Accessioned: 01/06/2025 Reported: 01/09/2025 Physician(s): Izzy Ann M.D. Diagnosis: A. Stomach, body and antrum, biopsy - Normal antral and oxyntic mucosa - No H. pylori organisms are identified by H&E examination B. Stomach, fundal polyp, biopsy - Fundic gland polyp Sherry Augustine MD Report Electronically Reviewed and Signed Out By Sherry Augustine MD 01/09/2025 15:51:48 Specimen(s) Received: A: gastric body and antrum biopsy rule out H. pylori B: gastric fundal polyp biopsy Microscopic Description: Unless gross-only is specified, the final diagnosis for each specimen is based on a microscopic examination of each tissue sample. Clinical History: The patient is a 74-year-old woman presenting with epigastric pain. Operative procedure: Esophagogastroduodenoscopy biopsy. Gross Description Received in two formalin jars labeled with the patient's identifiers. A. Labeled gastric body and antrum biopsy rule out H pylori are two fragments of soft franco-pink tissue (each measuring 0.2 cm in greatest dimension). Placed between sponges. Labeled A1. Jar 0. B. Labeled gastric fundal polyp biopsy are three fragments of soft franco-pink tissue (0.1-0.3 cm in greatest dimension). Placed between sponges. Labeled B1. Jar 0. [facility]/01/06/2025 15:43 Cyndie Becerra MS, PA (A Microscopic slide review and interpretation for this case was performed at [facility], Department of Surgical Pathology, [address] [facility] [place] [place] [id number], [place] [address] CLIA # [id number] us Lucia Arroyo MD LAB PATHOLOGY ORDERABLES Final Result PATHOLOGY [facility] * EGD (01/06/2025 1:52 PM CDT) Anatomical Region Laterality Modality Other Narrative Procedure Note Lucia Arroyo MD - 01/06/2025 1:52 PM CDT [facility] GI ENDOSCOPY Patient Name: Veda Soria Procedure Date: 01/06/2025 1:52 PM Date of : 1950 Admit Type: Outpatient Age: 74 Gender: Female Attending MD: Lucia Arroyo M.D. Room: [facility] ENDOSCOPY ROOM 05 Note Status: Finalized Procedure: Upper GI endoscopy Indications: Epigastric abdominal pain Referring MD: Providers: Lucia Arroyo M.D. Medicines: See the Anesthesia note for documentation of the administered medications Complications: No immediate complications. Procedure: Pre-Anesthesia Assessment: - Prior to the procedure, a History and Physicalwas performed, and patient medications, allergies and sensitivities were reviewed. The patient'stolerance of previous anesthesia was reviewed. - The risks and benefits of the procedure and the sedation options and risks were discussed with the patient. All questions were answered and informed consent was obtained. The benefits, risks, and alternatives to theprocedure and sedation were discussed and informed consentwas obtained. The scope was passed under direct vision. The [id number]-Q180 upper endoscope was introduced through the mouth, and advanced to the second part of duodenum. The upper GI endoscopy was accomplished without difficulty. The patient tolerated the procedure well. Findings: The examined esophagus was normal. Scattered moderate inflammation characterized by erosions, erythemaand friability was found in the gastric antrum. Biopsies were taken witha cold forceps for histology. The examined duodenum was normal. Multiple 5 mm sessile polyps with no stigmata of recent bleeding were found in the gastric fundus. The polyp was removed with a cold biopsy forceps. Resection and retrieval were complete. Impression: - Normal esophagus. - Gastritis. Biopsied. - Normal examined duodenum. Recommendation: - Resume previous diet. - Continue present medications. - Await pathology results. Lucia Arroyo M.D. Lucia Arroyo M.D. 01/06/2025 2:09:06 PM . Number of Addenda: 0 Note Initiated On: 01/06/2025 1:52 PM Recognized by the [employer] for promoting quality in endoscopy Lucia Arroyo MD ENDOSCOPY PROCEDURES Ayesha l Result * COLONOSCOPY (03/06/2023 2:49 PM CDT) Anatomical Region Laterality Modality Other Narrative Procedure Note Lucia Arroyo MD - 03/06/2023 2:49 PM CDT [facility] GI ENDOSCOPY Patient Name: Veda Tejeda Procedure Date: 03/06/2023 2:49 PM Date of : 1950 Admit Type: Outpatient Age: 72 Gender: Female Attending MD: Lucia Arroyo M.D. Room: [facility] ENDOSCOPY ROOM 05 Note Status: Finalized Procedure: Colonoscopy Indications: High risk colon cancer surveillance: Personalhistory of colon cancer Referring MD: Providers: Lucia Arroyo M.D. Medicines: See the Anesthesia note for documentation of the administered medications Complications: No immediate complications. Estimated Blood Loss: Estimated blood loss: none. Procedure: Pre-Anesthesia Assessment: - Prior to the procedure, a History and Physicalwas performed, and patient medications, allergies and sensitivities were reviewed. The patient'stolerance of previous anesthesia was reviewed. - The risks and benefits of the procedure and the sedation options and risks were discussed with the patient. All questions were answered and informed consent was obtained. The benefits, risks and alternatives of theprocedure and sedation were discussed and informed consentwas obtained. All questions were answered. Please referto the signed informed consent document in the medical record. The scope was passed under direct vision.The [id number] colonoscope was introduced through theanus and advanced to the anastomotic site on the rightside without any difficulty. The colonoscopy wasperformed without difficulty. The patient tolerated the procedure well. The quality of the bowelpreparation was good. Prep was administered in a single dose. Findings: The perianal and digital rectal examinations were normal. Pertinent negatives include normal sphincter tone. Scattered small-mouthed diverticula were found in the colon. The retroflexed view of the distal rectum and anal verge was normaland showed no anal or rectal abnormalities. Impression: - Diverticulosis. - The distal rectum and anal verge are normal on retroflexion view. - No specimens collected. Recommendation: - Resume previous diet. - Continue present medications. Lucia Arroyo M.D. Lucia Arroyo M.D. 03/06/2023 3:33:00 PM . Number of Addenda: 0 Note Initiated On: 03/06/2023 2:49 PM Recognized by the [employer] for promoting quality in endoscopy us Lucia Arroyo MD ENDOSCOPY PROCEDURES Ayesha l Result * eGFR (11/19/2021 3:39 PM WHEEL AND CASTER REPAIRER) eGFR 79 mL/min/1. 73 m2 RENETTA NOLASCO Comment: Interpretive Data Reference Interval Normal >/= 90 mL/min/1.73m2 Mildly decreased* 60 - 89 mL/min/1.73m2 Mildly to moderately decreased 45 - 59 mL/min/1.73m2 Moderately to severely decreased 30 - 44 mL/min/1.73m2 Severely decreased 15 - 29 mL/min/1.73m2 Kidney Failure < 15 mL/min/1.73m2 *Relative to young adult level Estimated glomerular filtration rate is determined by the 2020 CKD-EPI equation recommended by the National Kidney Foundation (A Unifying Approach to GFR Estimation: Recommendations of the NKF-ASK Task Force on Reassessing the Inclusion of Race in Diagnosing Kidney Disease, JASN 2020). The CKD-EPI equation should not be used for patients with unstable renal function and has not been validated in children and those over 70. Current interpretive data was last reviewed 2021. Blood 11/19/2021 3:39 PM WHEEL AND CASTER REPAIRER 11/19/2021 6:05 PM WHEEL AND CASTER REPAIRER Marifer Damon NP LAB BLOOD ORDERABLES Final R esult [facility]ETTA HERNANDEZ[facility] [address] [facility]. Department [place] [address] * Lipid panel (12/10/2020 8:08 PM CDT) Cholesterol 104 30 - 199 mg/dL RENETTA HERNANDEZ Comment: Interpretive Data Ages < or = 19 years Acceptable: <170 mg/dL Borderline high: 170-199 mg/dL High: >or= 200 mg/dL Ages > or = 20 years Desirable: <200 mg/dL Borderline high: 200-239 mg/dL High: >or= 240 mg/dL Literature References: 1. Expert Panel on Integrated Guidelines for Cardiovascular Health and Risk Reduction in Children and Adolescents. Pediatrics 2011;128:S213 2. NCEP Expert Panel. Circulation 2004;110:227 Current Interpretive Data was last revised on 2018. Triglycerides 54 <=149 mg/dL [facility] Comment: Interpretive Data Ages < or = 9 years Acceptable: <75 mg/dL Borderline high: 75-99 mg/dL High: >or= 100 mg/dL Ages 10 to 20 years Acceptable: <90 mg/dL Borderline high: 90-129 mg/dL High: >or= 130 mg/dL Ages > or = 20 years Desirable: <150 mg/dL Borderline high: 150-199 mg/dL High: 200-499 mg/dL Very high: >or= 499 mg/dL Literature References: 1. Expert Panel on Integrated Guidelines for Cardiovascular Health and Risk Reduction in Children and Adolescents. Pediatrics 2011;128:S213 2. NCEP Expert Panel. Circulation 2004;110:227 Current Interpretive Data was last revised on 2018. HDL 43 >=40 mg/dL [facility] Comment: Interpretive Data Ages < or = 19 years Acceptable: >45 mg/dL Borderline low: 40-45 mg/dL Low: <40 mg/dL Ages > or = 20 years Desirable: >or= 60 mg/dL Low: <40 mg/dL Literature References: 1. Expert Panel on Integrated Guidelines for Cardiovascular Health and Risk Reduction in Children and Adolescents. Pediatrics 2011;128:S213 2. NCEP Expert Panel. Circulation 2004;110:227 Current Interpretive Data was last revised on 2018. LDL, calculated 50 <=129 mg/dL [facility] Comment: Interpretive Data Ages < or = 19 years Acceptable: <110 mg/dL Borderline high: 110-129 mg/dL High: >or= 130 mg/dL Ages > or = 20 years Optimal: <100 mg/dL Near optimal: 100-129 mg/dL Borderline high: 130-159 mg/dL High: >160 mg/dL Literature References: 1. Expert Panel on Integrated Guidelines for Cardiovascular Health and Risk Reduction in Children and Adolescents. Pediatrics 2011;128:S213 2. NCEP Expert Panel. Circulation 2004;110:227 Current Interpretive Data was last revised on 2018. Non-HDL Cholesterol 61 mg/dL [facility] Comment: Interpretive Data Ages < or = 19 years Acceptable: <120 mg/dL Borderline high: 120-144 mg/dL High: >145 mg/dL Ages > or = 20 years When triglycerides are >200 mg/dL, Non-HDL cholesterol is a secondary target of therapy with treatment goals that are 30 mg/dL greater than the LDL cholesterol target. Literature References: 1. Expert Panel on Integrated Guidelines for Cardiovascular Health and Risk Reduction in Children and Adolescents. Pediatrics 2011;128:S213 2. NCEP Expert Panel. Circulation 2004;110:227 Current Interpretive Data was last revised on 2018. Chol/HDL ratio 2 [facility] Blood specimen (specimen) 12/10/2020 8:08 PM CDT 12/10/2020 8:36 PM CDT us Reggie Lares MD LAB BLOOD ORDERABLES Final Re sult Performing Organization Address [facility] Co de Phone Number [facility] [place] [address] * (ABNORMAL) Hemoglobin A1c (01/31/2020 10:07 AM CDT) Hgb A1C 5.7(H) 4.0 - 5.6 % [facility] Estimated Average Glucose 117 mg/dL [facility] Comment: The ADA recommends reporting an estimated Average Glucose (eAG) with all Hemoglobin A1c results using the equation derived from a study of 507 normal and diabetic adults. Minority populations were underrepresented and children were not included. (Diabetes Care 31:7736-9644, 2008). The eAG is not equivalent to a fasting glucose. Blood specimen (specimen) 01/31/2020 10:07 AM CDT 01/31/2020 10:23 AM CDT Po Garza MD LAB BLOOD ORDERABLES Final Result Performing Organization Address [facility]/ZIP Co de Phone Number [facility] [place] [employer] [place] [address] from Last 3 Months or Most Recently Relevant to Health Maintenance Insurance MEDICARE [facility] MEDICARE ANTHEM ACCESS CHOICE [facility] TRADITIONAL MEDICARE [facility] MEDICARE MEDICARE ANTHEM ACCESS CHOICE Member Subscriber Plan / Payer (Ef fective 2022-Present) Name:Veda Soria Member ID:[id number] Relation to Subscriber:Spouse Name:Lorena Colby Subscriber ID:[id number] Date of :1961 (Home) (Work) Address: [facility] [place] [address] Payer ID:[id number] (NAIC) Type: [employer] Address: [address] [place] [id number] Advance Directives For more information, please contact: [phone] * Full Code (Latest Code Status on File) Date Activated Date Inactivated Comments 12/10/2020 8:42 AM 12/11/2020 6:04 PM * Full Code Date Activated Date Inactivated Comments 01/31/2020 12:37 PM 02/03/2020 10:50 PM Care Teams Substation Superintendent Relationship Specialty Start Date End Date Jocelyn Zamorano MD [address] [facility] [address] [place] [address] PCP - General Internal Medicine 04/04/20 Mac Montano MD [address] [facility] [address] [place] [address] Referring Physician Cardiology 10/11/20 Marie Newman MD [address] [facility] [address] [place], [place] [phone] Surgeon Cardiothoracic Surgery 12/11/20 Vikram Oneal MD [address] [facility] [address] [place], [place] [phone] Consulting Physician Cardiology 12/11/20
--- OUTSIDE RECORDS SUMMARY | 2025-04-06 16:06 | XMS_ITS | Referral Summary ---
Author Organization [facility] al Address [address] [place] [address] Care Team Providers Care General Manager Road Production Name Role Phone Jocelyn Zamorano MD Primary Care Provider [phone] Mac Montano MD Unavailable Marie Newman MD Unavailable Vikram Oneal MD Unavailable [phone] Encounters Date Type Department Care Team Description 01/11/2025 10:30 AM CDT Office Visit [facility] Orthopedics and Sports Medicine [address] [phone] Mac Delaney MD Primary osteoarthritis of right knee (Primary Dx) 01/06/2025 1:51 PM CDT Anesthesia Event [facility] [address] [place] [address] America Reynolds MD 01/06/2025 12:00 PM CDT - 01/06/2025 12:30 PM CDT Surgery [facility] [address] [place] [id number] Lucia Arroyo MD ESOPHAGOGASTRODUODENOSCOPY BIOPSY 01/06/2025 11:04 AM CDT - 01/06/2025 2:55 PM CDT Hospital Encounter [facility] [address] [place] [phone] Lucia Arroyo MD Epigastric pain Discharge Disposition: Discharge to home or self care from Last 3 Months Allergies Active Allergy Reactions Criticality Noted Date [...] by mouth daily 4 Active iron ps [id number] ic acid (Poly-Iron 150 Forte) 150-25-1 mg-mcg-mg [...] TAVR w/ 23mm Murtaza 3 Ultra 11/2020 (Jm/Paty). Recent echocardiogram from November of 2023 noted a preserved ejection fraction and TAVR with mild paravalvular AR and MPG of 23 mm Hg. She is following closely with Hematology for anemia. She has an elevated LDH and low haptoglobin and therefore was concerned about hemolysis from valve. Discussed this with window shade cloth sewer, Dr. Oneal, and this is not a typical occurrence in TAVR and therefore low probability of etiology of anemia. Discussed with patient about obtaining repeat echocardiogram to ensure no changes in the valve since November. She would prefer to await any further testing until establishment with new local tire recapping machine operator. SBE prophylaxis. Continue aspirin therapy. 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 Although [...] History of malignant neoplasm of colon 6 Immunizations Immunization Administration Dates Next Due Pfizer SARS-CoV-2 Monovalent Vaccination (12+ Yrs) PURPLE 06/28/2021,11/26/2020 Social History Tobacco Use Types Packs/Day Years Used Date Smoking Tobacco: Every Day Cigarettes 1 55.6 Started: 1969 Passive Smoke Exposure: Current Smokeless Tobacco: Never [...] 02/01/2020 How often do you attend chur ch or jewish services? More than 4 times per year 02/01/2020 Do you belong to any clubs o r organizations such as muslim groups, unions, fraternal or athletic groups, or [...] on file Legal Sex Female 11:40 PM ON AIR HOST Gender Identity Not on file Sexual Orientation Straight 07/08/2020 10 :27 PM CDT Last Filed Vital Signs Vital Sign Reading [...] 12/30/2024 12:14 PM CDT Plan of Treatment Not on file Medical Devices Implanted Type Area Turning Sander Operator Device Identifier Shelf Expiration Date Model / Serial / Lot [employer] [id number] Angio-Seal Evolution 6fr .035in Guidewire Bypass Tube Suture - [id number] - [id number] Implanted:Qty: 1 on 12/10/2020 by Vikram Oneal MD at [facility] Collagen [employer] 08/13/2021 [id number] / [id number] / [id number] [employer] [id number] Valve Heart 23mm Murtaza 3 Transcatheter - [id number] - [id number] Implanted:Qty: 1 on 12/10/2020 by Vikram Oneal MD at [facility] Prosthetic Valve Aortic Valve [employer] 06/04/2022 [id number] / [id number] / Description:Transcatheter Ao rtic Valve Valve Left: Heart Procedures Procedure Name Priority Date/Time Associated Diagnosis Comments GA ARTHROCENTESIS ASPIR&/INJ MAJOR JT/BURSA W/O US Routine 01/11/2025 10:30 AM CDT Primary osteoarthritis of right knee SURGICAL PATHOLOGY Routine 01/06/2025 1:59 PM CDT Epigastric pain EGD 01/06/2025 1:52 PM CDT ESOPHAGOGASTRODUODENOSCOPY BIOPSY 01/06/2025 1:50 PM CDT epigastric pain COLONOSCOPY 03/06/2023 2:49 PM CDT EGFR Routine 11/19/2021 3:39 PM ON AIR HOST S/P TAVR (transcatheter aortic valve replacement) LIPID PANEL Routine 12/10/2020 8:08 PM CDT HEMOGLOBIN A1C STAT 01/31/2020 10:07 AM CDT from Last 3 Months or Most Recently Relevant to Health Maintenance Results * GA ARTHROCENTESIS ASPIR&/INJ MAJOR JT/BURSA W/O US (01/11/2025 10:30 AM CDT) Narrative Mac Delaney MD - 01/11/2025 10:30 AM CDT Mac [...] biopsy) 01/06/2025 1:59 PM CDT Narrative PATHOLOGY [facility] - 01/09/2025 3:51 PM CDT [facility] Department of Pathology [address] [place] [address] Note to Patients: This report may contain [...] : 1950 (Age: 74) Gender: F Address: [address] [place] [address] Hospital #: [id number] Service: Gastro Location: Patient Type: [facility] OUTPATIENT Taken: 01/06/2025 Received: 01/06/2025 Accessioned: 01/06/2025 [...] Placed between sponges. Labeled B1. Jar 0. [facility]/01/06/2025 15:43 Cyndie Becerra, , PA (A Microscopic slide review and interpretation for this case was performed at [facility], Department of Surgical Pathology, [address] [facility], [place] [id number] [id number] CLIA # [id number] us Lucia Arroyo MD LAB PATHOLOGY ORDERABLES Final Result PATHOLOGY [facility] * EGD (01/06/2025 1:52 PM CDT) Anatomical Region Laterality Modality Other Narrative Procedure Note Lucia Arroyo MD - 01/06/2025 1:52 PM CDT [facility] GI ENDOSCOPY Patient Name: Veda Soria Procedure Date: 01/06/2025 1:52 PM Date of : 1950 Admit Type: Outpatient Age: 74 Gender: Female Attending MD: Lucia Arroyo M.D. Room: [facility] ENDOSCOPY ROOM 05 Note [...] On: 01/06/2025 1:52 PM Recognized by the [employer] for promoting quality in endoscopy us Lucia Arroyo MD ENDOSCOPY PROCEDURES Ayesha l Result * COLONOSCOPY (03/06/2023 2:49 PM CDT) Anatomical Region Laterality Modality Other Narrative Procedure Note Lucia Arroyo MD - 03/06/2023 2:49 PM CDT [facility] GI ENDOSCOPY Patient Name: Veda Tejeda Procedure Date: 03/06/2023 2:49 PM Date of : 1950 Admit Type: Outpatient Age: 72 Gender: Female Attending MD: Lucia Arroyo M.D. Room: [facility] ENDOSCOPY ROOM 05 Note [...] The scope was passed under direct vision.The [id number] colonoscope was introduced through theanus and advanced [...] On: 03/06/2023 2:49 PM Recognized by the [employer] for promoting quality in endoscopy us Lucia Arroyo MD ENDOSCOPY PROCEDURES Ayesha l Result * eGFR (11/19/2021 3:39 PM ON AIR HOST) eGFR 79 mL/min/1. 73 m2 [facility] NOLAS[facility] [...] last reviewed 2021. Blood 11/19/2021 3:39 PM ON AIR HOST 11/19/2021 6:05 PM ON AIR HOST us Marifer Damon NP LAB BLOOD ORDERABLES Final R esult [facility] HERNAN[facility] [address] [facility]. [place] [address] * Lipid panel (12/10/2020 8:08 [...] revised on 2018. Triglycerides 54 <=149 mg/dL [facility] Comment: Interpretive Data Ages < or [...] revised on 2018. HDL 43 >=40 mg/dL [facility] Comment: Interpretive Data Ages < or [...] on 2018. LDL, calculated 50 <=129 mg/dL [facility] Comment: Interpretive Data Ages < or [...] revised on 2018. Non-HDL Cholesterol 61 mg/dL [facility] Comment: Interpretive Data Ages < or [...] last revised on 2018. Chol/HDL ratio 2 [facility] Blood specimen (specimen) 12/10/2020 8:08 PM CDT 12/10/2020 8:36 PM CDT us Reggie Lares MD LAB BLOOD ORDERABLES Final Re sult Performing Organization Address [facility] Co de Phone Number [facility] [place] [employer] [place] [address] * (ABNORMAL) Hemoglobin A1c (01/31/2020 10:07 AM CDT) Hgb A1C 5.7(H) 4.0 - 5.6 % [facility] Estimated Average Glucose 117 mg/dL [facility] Comment: The ADA recommends reporting an estimated Average Glucose (eAG) with all Hemoglobin A1c results using the equation derived from a study of 507 normal and diabetic adults. Minority populations were underrepresented and children were not included. (Diabetes Care 31:7794-6947, 2008). The eAG is not equivalent to a fasting glucose. Blood specimen (specimen) 01/31/2020 10:07 AM CDT 01/31/2020 10:23 AM CDT us Po Garza MD LAB BLOOD ORDERABLES Final Result Performing Organization Address City/[facility]/ZIP Co de Phone Number [facility] [place] [address] from Last 3 Months or Most Recently Relevant to Health Maintenance Insurance MEDICARE [employer] ACCESS CHOICE MEDICARE ANTHEM ACCESS CHOICE [facility] MEDICARE [facility] MEDICARE MEDICARE [employer] ACCESS CHOICE Advance Directives For more information, please contact: [phone] * Full Code (Latest Code Status on File) Date Activated Date Inactivated Comments 12/10/2020 8:42 AM 12/11/2020 6:04 PM * Full Code Date Activated Date Inactivated Comments 01/31/2020 12:37 PM 02/03/2020 10:50 PM Care Teams General Manager Road Production Relationship Specialty Start Date End Date Jocelyn Zamorano MD [address] [place] [address] PCP - General Internal Medicine 04/04/20 Mac Montano MD [address] [place] [address] Referring Physician Cardiology 10/11/20 Marie Newman MD [address] [place], [place] [phone] Surgeon Cardiothoracic Surgery 12/11/20 Vikram Oneal MD [address] [place], [place] [phone] Consulting Physician Cardiology 12/11/20
--- OUTSIDE RECORDS SUMMARY | 2025-04-06 16:07 | XMS_ITS | Clinical Summary ---
Author Organization [facility] Address [address], [address] [place] [address] Phone Care Team Providers Care Electrical Appliance Servicer Name Role Phone Jocelyn Zamorano MD Primary Care Provider [phone] Benjamín Herr MD Unavailable [phone] Allergies Active Allergy Reactions Criticality Noted Date Comments Cephalexin Rash High 11/12/2020 Codeine Rash Medium 01/31/2020 Epinephrine Other (see Comments) High 1978 Severe Shakiness/tremors Erythromycin Rash Medium 01/31/2020 Penicillins Hives,Swelling Medium 01/31/2020 Simvastatin Other (see Comments) Low 01/31/2020 Sulfa Antibiotics Hives Medium 01/31/2020 Medications aspirin 81 MG Chewable Tablet Take 81 mg by mouth daily. 12/11/2020 Active atorvastatin (LIPITOR) 40 MG Tablet Take 40 mg by mouth daily. 02/04/2020 Active buPROPion (WELLBUTRIN) 75 MG Tablet Take 75 mg by mouth. 09/19/2023 Active ergocalciferol (VITAMIN D) 97918 UNIT Capsule Take 50,000 Units by mouth. Active levothyroxine (SYNTHROID) 88 MCG Tablet Take 77 mcg by mouth. Active losartan (COZAAR) 50 MG Tablet Take 50 mg by mouth. 10/04/2023 Active metFORMIN (GLUCOPHAGE) 500 MG Tablet Take 1,000 mg by mouth in the morning and at bedtime. 02/23/2023 Active omeprazole (PriLOSEC) 40 MG CAPSULE DELAYED RELEASE Take 40 mg by mouth. 11/15/2019 Active senna-docusate (SENOKOT S) 8.6-50 MG Tablet Take 1 Tablet by mouth nightly. Active cyanocobalamin 1000 MCG Tablet Take 1 Tablet by mouth daily for 120 days. 30 Tablet 3 11/25/2024 03/25/20 25 Active Problems Problem Noted Date Diagnosed Date Iron deficiency 12/14/2024 Iron adverse reaction 12/14/2024 Elevated blood pressure reading 08/25/2024 Iron deficiency anemia 05/10/2024 Anemia due to unknown mechanism 05/06/2024 Encounters Date Type Department Care Team Description 03/16/2025 3:00 PM CDT Lab [facility] [address] [id number] Lab, [facility] Iron deficiency anemia, unspecified iron deficiency anemia type; Vitamin B12 deficiency; Other fatigue 03/16/2025 2:30 PM CDT Office Visit [facility] [address] [id number] Marianne Marley APRN, SANFORIZER Iron deficiency anemia, unspecified iron deficiency anemia type (Primary Dx); Vitamin B12 deficiency; Other fatigue 03/16/2025 Travel from Last 3 Months Family History Medical History Relation Name Comments Lung Cancer Brother 2 Lung Cancer Father Liver Cancer Mother Relation Name Status Comments Brother 1 Alive Brother 2 Father Mother Alive Sister Alive Social History Tobacco Use Types Packs/Day Years Used Date Smoking Tobacco: Every Day Cigarettes Smokeless Tobacco: Never Tobacco Cessation:Ready to Q uit: Not Asked; Counseling Given: Not Answered Alcohol Use Standard Drinks/Week Comments Never 0 (1 standard drink = 0.6 oz pur e alcohol) Comments Unknown Sex and Gender Information Value Date Recorded Sex Assigned at Not on file Legal Sex Female 7:21 PM CDT Gender Identity Not on file Sexual Orientation Not on file Last Filed Vital Signs Vital Sign Reading Time Taken Comments Blood Pressure 130/72 03/16/2025 2:25 PM CDT Pulse 77 03/16/2025 2:25 PM CDT Temperature 36.5 C (97.7 F) 03/16/2025 2:25 PM CDT Respiratory Rate 18 03/16/2025 2:25 PM CDT Oxygen Saturation 94% 03/16/2025 2:25 PM CDT Inhaled Oxygen Concentration - - Weight 89 kg (196 lb 3.2 oz) 03/16/2025 2:25 PM CDT Height 154.9 cm (5' 1) 03/16/2025 2:25 PM CDT Body Mass Index 37.07 03/16/2025 2:25 PM CDT Plan of Treatment Upcoming Encounters Date Type Department Care Team (Late st Contact Info) Description 06/15/2025 2:30 PM CDT Office Visit [facility] [address] [phone] Benjamín Herr MD [address] [place] [address] Health Maintenance Due Date Last Done Comments DEXA Bone Density 1950 Hepatitis C Virus (HCV) Screening 1950 TdaP Immunization 1950 Pneumococcal Immunization (50+ years) (1 of 2 - PCV) 1968 Cologuard 1994 Immunochemical Fecal Occult Blood 1994 Zoster Immunization (1 of 2) 1999 SARS-COV-2 Immunization ( season) 2024 07/03/2023, 07/06/2022, 06/28/2021, Additional history exists Respiratory Syncytial Virus (RSV) Immunization (Adult) (1 - 1-dose 75+ series) 2024 Influenza Immunization (#1) 2025 Colonoscopy 03/06/2033 03/06/2023, 02/13, 08/27/2017, Additional history exists Colorectal Cancer Screening 03/06/2033 Hepatitis B Immunization Aged Out No longer eligible based on patient's age to complete this topic Human Papillomavirus (HPV) Immunization Aged Out No longer eligible based on patient's age to complete this topic Meningococcal Immunization (ACWY) Aged Out No longer eligible based on patient's age to complete this topic Rotavirus Immunization Aged Out No lo nger eligible based on patient's age to complete this topic Procedures Procedure Name Priority Date/Time Associated Diagnosis Comments CBC WITH AUTO DIFF OH Routine 03/16/2025 2:57 PM CDT CMP (COMPREHENSIVE METABOLIC PANEL) Routine 03/16/2025 2:57 PM CDT Iron deficiency anemia, unspecified iron deficiency anemia type Vitamin B12 deficiency Other fatigue VITAMIN B12 Routine 03/16/2025 2:57 PM CDT Iron deficiency anemia, unspecified iron deficiency anemia type Vitamin B12 deficiency Other fatigue FOLIC ACID (FOLATE) Routine 03/16/2025 2 :57 PM CDT Iron deficiency anemia, unspecified iron deficiency anemia type Vitamin B12 deficiency Other fatigue FERRITIN Routine 03/16/2025 2:57 PM CDT Iron deficiency anemia, unspecified iron deficiency anemia type Vitamin B12 deficiency Other fatigue IRON W/ IRON BINDING CAPACITY OH Routine 03/16/2025 2:57 PM CDT Iron deficiency anemia, unspecified iron deficiency anemia type Vitamin B12 deficiency Other fatigue from Last 3 Months Results * IRON W/ IRON BINDING CAPACITY OH (03/16/2025 2:57 PM CDT) IRON 68 50 - 212 ug/dL [facility] UIBC 263 155 - 355 ug/dL [facility] TIBC 331 261 - 478 ug/dl [facility] % Saturation 21 20 - 50 % [facility] 03/16/2025 2:57 PM CDT Narrative [facility] - 03/16/2025 3:38 PM CDT Release to patient->Immediate us Marianne Marley APRN, SANFORIZER LAB SEND OUTS Fin al Result [facility] [place] [address] [place] [address], * (ABNORMAL) CBC WITH AUTO DIFF OH (03/16/2025 2:57 PM CDT) WBC 5.3 4.0 - 10.0 10*3/uL [facility] HGB 11.8 11.2 - 15.7 g/dL [facility] HCT 37.3 34.1 - 44.9 % [facility] PLT 142(L) 163 - 369 10*3/uL [facility] MPV See below 9.4 - 12.4 fL [facility] Comment:Instrument unable to provide an accurate result RBC 4.13 3.93 - 5.22 10*6/uL [facility] MCV 90 79 - 95 fL [facility] MCH 28.6 25.6 - 32.2 pg [facility] MCHC 31.6(L) 32.2 - 36.5 g/dL [facility] RDW 14.6(H) 11.6 - 14.4 % [facility] Neutrophils % 61.4 36.0 - 66.0 % [facility] Lymphocytes % 30.0 19.0 - 40.0 % [facility] Monocytes % 6.1 4.1 - 12.1 % [facility] Eosinophils % 1.5 0.0 - 3.5 % [facility] Basophils % 0.8 0.0 - 1.0 % [facility] Absolute Neutrophils 3.2 1.4 - 6.6 10*3/uL [facility] Absolute Lymphocytes 1.6 0.8 - 4.0 10*3/uL [facility] Absolute Monocytes 0.3 0.2 - 1.2 10*3/uL [facility] Absolute Eosinophils 0.1 0.0 - 0.4 10*3/uL [facility] Absolute Basophils 0.0 0.0 - 0.1 10*3/uL [facility] 03/16/2025 2:57 PM CDT us Marianne Marley BRONZER, SANFORIZER LAB SEND OUTS Fin al Result Performing Organization Address [facility]/ZIP Co de Phone Number [facility] [place] [address] [place] [address], [place] [phone] * VITAMIN B12 (03/16/2025 2:57 PM CDT) Vitamin B12 313 180 - 914 pg/mL [facility] Blood 03/16/2025 2:57 PM CDT Narrative [facility] - 03/20/2025 2:36 PM CDT Release to patient->Immediate us Marianne Marley APRN, CNP CHEMISTRY ORDERABLE S Final Result Performing Organization Address [facility] Co de Phone Number [facility] [place] [address] [place] [address], [place] [phone] * FOLIC ACID (FOLATE) (03/16/2025 2:57 PM CDT) Folate 13.30 >=5.90 ng/mL [facility] Blood 03/16/2025 2:57 PM CDT Narrative [facility] - 03/20/2025 2:36 PM CDT Release to patient->Immediate IS THE PATIENT REQUIRED TO BE FASTING FOR 12 HOURS?->No us Marianne Marley APRN, CNP CHEMISTRY ORDERABLE S Final Result Performing Organization Address [facility]/ZIP Co de Phone Number [facility] [place] [address] [place] [address], [place] [phone] * FERRITIN (03/16/2025 2:57 PM CDT) Ferritin 154 11 - 307 ng/mL [facility] Blood 03/16/2025 2:57 PM CDT Narrative [facility] - 03/20/2025 2:36 PM CDT Release to patient->Immediate us Marianne Marley APRN, RAMIN CHEMISTRY ORDERABLE S Final Result [facility] [place] [address], [place] [phone] * (ABNORMAL) CMP (COMPREHENSIVE METABOLIC PANEL) (03/16/2025 2:57 PM CDT) Glucose 109(H) 70 - 105 mg/dL [facility] Blood Urea Nitrogen 18 7 - 25 mg/dL [facility] Creatinine 1.0 0.6 - 1.2 mg/dL [facility] Sodium 143 136 - 145 mEq/L [facility] Potassium 3.8 3.5 - 5.1 mEq/L [facility] Chloride 106 98 - 107 mEq/L [facility] Bicarbonate 32(H) 21 - 31 mEq/L [facility] Total Bilirubin 0.5 0.3 - 1.0 mg/dL [facility] Alk. Phosphatase 55 34 - 104 U/L [facility] Aspartate Aminotransferase 22 13 - 39 U/L [facility] Alanine Aminotransferase 13 7 - 52 U/L [facility] Total Protein 6.3(L) 6.4 - 8.9 g/dL [facility] Albumin 4.4 3.5 - 5.7 g/dL [facility] Calcium 9.1 8.6 - 10.3 mg/dL [facility] Anion Gap 8.8 7.0 - 15.0 mEq/L [facility] Globulin 1.9(L) 2.0 - 3.5 g/dL [facility] EGFR 59(L) >60 ml/min/1. 73m2 [facility] APPLICATIONS MANAGER [facility] Comment: This eGFR is calculated using 2020 CKD-EPI Creatinine equation without race modifier based on the NKF-ASN task force recommendations Equation: oMGG=531*min(SCr/k,1)a*max(SCr/k,1)-1.200*0.9938Age*1.012 (if female), where SCr is serum creatinine, k is 0.7 for females and 0.9 for males, and a is -0.241 for females and -0.302 for males Blood 03/16/2025 2:57 PM CDT Narrative [facility] - 03/16/2025 3:38 PM CDT Release to patient->Immediate IS THE PATIENT REQUIRED TO BE FASTING FOR 8 HOURS?->No us Marianne Marley BRONZER, SANFORIZER CHEMISTRY ORDERABLE S Final Result [facility] [address] [place] [address], from Last 3 Months Insurance MEDICARE [facility] Care Teams Electrical Appliance Servicer Relationship Specialty Start Date End Date Jocelyn Zamorano MD [address] [place] [id number] PCP - General Internal Medicine 03/30/24 Benjamín Herr MD [address] [place] [phone] Consulting Physician Oncology 03/30/24
--- OUTSIDE RECORDS SUMMARY | 2025-04-06 16:07 | XMS_ITS | Data Portability ---
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 Studies ordered as below. Discussed plan with patient/careg iver, who expressed understanding . Follow up as noted below. Not available 03/09/2024 19:10:22 06/06/2024 06/06/2024 Patient presented for follow up. Studies ordered as below. Discussed plan with patient/careg iver, who expressed understanding . Follow up as noted below. Not available 06/06/2024 17:52:47 09/05/2024 09/05/2024 Patient presented for follow up. Studies ordered as below. Discussed plan with patient/careg iver, who expressed understanding . Follow up as noted below. Not available 09/05/2024 17:47:32 04/05/2025 04/05/2025 Patient presented for follow up. Studies ordered as below. Discussed plan with patient/careg iver, who expressed understanding . Follow up as noted below. Not available 04/05/2025 18:50:19 Plan of Treatment Reminders Order Date Submit Date Provider Last Modified By Organization Details Last Modified Time Details Appointments US CAROT[facility]ERY 2024 03:30P M [facility] Not available Not available Not available ESTABLISH ED PATIENT 15 2024 05:15P M Jocelyn Dawkins MD Not available Not available Not available Lab vitamin D, 25-hydrox y, total, serum 2024 025 [facility], [address], [place], [address], 04/05/2025 19:46:09 HbA1c (hemoglob in A1c), blood 2024 025 [facility], [address] [facility], [place], [address], 04/05/2025 19:46:08 lipid panel w/ direct LDL, serum 2024 025 [facility], [address], [place], [address], 04/05/2025 19:46:09 TSH, serum or plasma 2024 025 [facility], [address], [place], [address], 04/05/2025 19:46:08 urinalysi s, dipstick 2024 025 [facility], [facility], [address], [place], [address], 04/05/2025 19:45:49 TSH + free T4, serum 2024 025 [facility], [address] [place], [address], 04/05/2025 19:46:09 C-peptide , serum 2023 024 [facility], [address] [place], [address], 06/06/2024 18:40:40 hemoglobi n A1c, QN, blood 2023 024 [facility], [address], [place], [address], 06/06/2024 18:40:40 lipid panel w/ direct LDL, serum 2023 024 [facility], [address], [place], [address], 06/13/2024 04:10:46 vitamin D, 25-hydrox y, total, serum 2023 024 [facility], [address], [place], [address], 06/13/2024 04:10:47 TSH, serum or plasma 2023 024 [facility], [address], [place], [address], 06/13/2024 04:10:47 CMP, serum or plasma 2023 024 [facility], [address], [place], [address], 03/12/2024 10:35:52 iron panel, serum or plasma 2023 024 [facility], [address], [place], [address], 06/07/2024 21:09:12 vitamin B12 + folate, serum or blood 2023 024 [facility], [address], [place], [address], 06/07/2024 21:09:12 CBC w/ auto diff 2023 024 [facility], [address], [place], [address], 03/12/2024 10:35:51 clostridi um difficile Ag + toxin, stool 2023 024 [facility], [address], [place], [address], 02/02/2024 14:10:38 CMP, serum or plasma 2023 024 [facility], [address], [place], [address], 02/05/2024 00:51:40 amylase + lipase, serum 2023 024 [facility], [address], [place], [address], 02/09/2024 04:06:59 CBC w/ auto diff 2023 024 [facility], [address], [place], [address], 02/05/2024 00:51:41 Referral podiatris t referral 2023 024 [place] [id number] Jesus Santiago DPM, [address] [facility], [facility], [place], [address], 06/06/2024 19:07:58 cardiolog ist referral [address] [facility], [address] [facility], [address], [place], [address], 08/10/2024 17:33:51 Procedures None recorded. Surgeries None recorded. Imaging MAMMO, screening , digital, bilateral [address] (Mammography) , [address], [place], [address], 04/05/2025 20:03:00 bone density 2024 025 [place] [id number] [facility]), [address], [address], [place], [address], 04/05/2025 20:03:00 US, liver 2024 025 [facility]), [address], [address], [place], [address], 04/05/2025 20:03:01 electroca rdiogram 2024 025 [facility], [facility], [address], [place], [address], 04/06/2025 09:13:34 US, duplex, carotid artery [address], [facility], [address], [place], [address], 04/05/2025 20:03:00 CT, chest, w/o contrast 2024 025 [facility]), [address], [address], [place], [address], 04/05/2025 20:03:00 CT, abdomen + pelvis, w/wo contrast 2023 024 [facility]), [address], [address], [place], [address], 09/27/2024 15:42:30 US, duplex, carotid artery 2023 024 [facility], [facility], [address], [place], [address], 09/05/2024 20:55:51 MAMMO, screening , digital, bilateral 2023 024 [facility] (Mammography) , [address], [place], [address], 03/12/2024 11:39:17 electroca rdiogram 2023 024 [facility], [facility], [address], [place], [address], 03/09/2024 19:46:48 Medication Orders Wellbutri n XL 150 mg 24 hr tablet, extended release 2024 025 [facility], [facility], [place], [address], 04/05/2025 19:45:51 oxybutyni n chloride ER 10 mg tablet,ex tended release 24 hr 2024 025 [facility], [address] [place] [address], [place], [address], 04/05/2025 19:45:50 metformin ER 500 mg tablet,ex tended release 24 hr 2024 025 [facility], [address] [place] [address], [place], [address], 04/05/2025 19:45:51 fluticaso ne propionat e 50 mcg/actua tion nasal spray,erica pension 2023 024 [facility], [address] [facility], [place], [address], 06/06/2024 18:40:12 Mucinex DM 30 mg-600 mg tablet,ex tended release 12 hr 2023 024 [facility] 2425, [address] [facility], [place], [address], 09/05/2024 18:16:16 metformin 500 mg tablet 2023 024 [facility] [address]25, [address] [facility], [place], [address], 04/05/2025 19:30:39 Questran 4 gram powder for susp in a packet 2023 024 [facility] [address], [address] [facility], [place], [address], 03/09/2024 19:32:22 ondansetr on HCl 4 mg tablet 2023 024 [facility] [address], [address] [facility], [place], [address], 03/09/2024 19:32:12 Patient TargetsNo targets recorded. Patient Instructions Encounter Date Encounter Id Patient Instructions Last Modified By Organization Details Last Modified Time 02/01/2024 [id number] diarrhea: care instructions mshenouda Not available 02/01/2024 19:42:46 nausea and vomiting: care instructions mshenouda Not available 02/01/2024 19:42:46 03/09/2024 [id number] Quitting Tobacco : Care Instructions mshenouda Not available 03/09/2024 19:41:58 mammogram: about this test mshenouda Not available 03/09/2024 19:41:58 anemia: care instructions mshenouda Not available 03/09/2024 19:41:58 06/06/2024 [id number] mammogram: about this test mshenouda Not available 06/06/2024 18:40:05 sleep apnea: car e instructions mshenouda Not available 06/06/2024 18:40:04 aortic valve stenosis: care instructions mshenouda Not available 06/06/2024 18:40:04 anemia: care instructions mshenouda Not available 06/06/2024 18:40:04 Quitting Tobacco : Care Instructions mshenouda Not available 06/06/2024 18:40:04 hypothyroidism: care instructions mshenouda Not available 06/06/2024 18:40:04 09/05/2024 [id number] Peripheral Arterial Disease (PAD): Care Instructions mshenouda Not available 09/05/2024 18:35:54 mammogram: about this test mshenouda Not available 09/05/2024 18:35:54 arthritis: care instructions mshenouda Not available 09/05/2024 18:35:55 seasonal allergies: care instructions mshenouda Not available 09/05/2024 18:35:55 sleep apnea: car e instructions mshenouda Not available 09/05/2024 18:35:54 aortic valve stenosis: care instructions mshenouda Not available 09/05/2024 18:35:54 Nonalcoholic Fatty Liver Disease (NAFLD): Care Instructions mshenouda Not available 09/05/2024 18:35:55 hypocalcemia: care instructions mshenouda Not available 09/05/2024 18:35:55 carotid stenosis : care instructions mshenouda Not available 09/05/2024 18:35:54 bladder training : care instructions mshenouda Not available 09/05/2024 18:35:55 kegel exercises: care instructions mshenouda Not available 09/05/2024 18:35:54 Stress Incontinence: Care Instructions mshenouda Not available 09/05/2024 18:35:54 Urge Incontinence: Care Instructions mshenouda Not available 09/05/2024 18:35:55 Quitting Tobacco : Care Instructions mshenouda Not available 09/05/2024 18:35:55 smoking cessatio n counseling, greater than 3 minutes up to 10 minutes* mbenfer Not available 12/30/2024 09:07:55 hypothyroidism: care instructions mshenouda Not available 09/05/2024 18:35:55 living will mshenouda Not available 08/15 18:30:05 04/05/2025 [id number] Peripheral Arterial Disease (PAD): Care Instructions mshenouda Not available 04/05/2025 19:45:40 mammogram: about this test mshenouda Not available 04/05/2025 19:45:40 arthritis: care instructions mshenouda Not available 04/05/2025 19:45:40 seasonal allergies: care instructions mshenouda Not available 04/05/2025 19:45:40 sleep apnea: car e instructions mshenouda Not available 04/05/2025 19:45:40 aortic valve stenosis: care instructions mshenouda Not available 04/05/2025 19:45:40 Nonalcoholic Fatty Liver Disease (NAFLD): Care Instructions mshenouda Not available 04/05/2025 19:45:40 hypocalcemia: care instructions mshenouda Not available 04/05/2025 19:45:40 carotid stenosis : care instructions mshenouda Not available 04/05/2025 19:45:40 bladder training : care instructions mshenouda Not available 04/05/2025 19:45:41 kegel exercises: care instructions mshenouda Not available 04/05/2025 19:45:40 Stress Incontinence: Care Instructions mshenouda Not available 04/05/2025 19:45:40 Urge Incontinence: Care Instructions mshenouda Not available 04/05/2025 19:45:40 Quitting Tobacco : Care Instructions mshenouda Not available 04/05/2025 19:45:41 smoking cessatio n counseling, greater than 3 minutes up to 10 minutes* ATHENAFAX Not available 04/05/2025 19:46:02 hypothyroidism: care instructions mshenouda Not available 04/05/2025 19:45:41 Reason for Referral Apprentice Referral for Ao rtic valve stenosis Referring Physician: Jocelyn Dawkins, Internal Medicine, Encounter Date: 06/06/2024 Paper Conservator Referral for Cont racture of joint of toe Referring Physician: Jocelyn Dawkins, Internal Medicine, Encounter Date: 06/06/2024 Results Created Date Observation Date Name Description Value Unit Range Abnormal Flag Note LastModifiedBy Organization Detail LastModifiedTime 01/14/20 24 01/14/2024 FREE T4 thyroxine (T4), free 1.41 NG/dL 0.82-1 .77 Not Available [facility] [address] [facility] [address], [place], [address], 01/16/2024 14:32:54 01/14/20 24 01/14/2024 IRON PANEL iron 60 mcg/d L 27-139 Not Available [facility] [address] [facility] [address], [place], [address], 01/16/2024 14:32:54 01/14/20 24 01/14/2024 IRON PANEL UIBC 323 ug/dL 111-34 3 Not Available [facility] [address] [facility] [address], [place], [address], 01/16/2024 14:32:54 01/14/20 24 01/14/2024 IRON PANEL total iron binding capacity 383.0 mcg/d L 250.0- 450.0 Not Available [facility] [address] [facility] [address], [place], [address], 01/16/2024 14:32:54 01/14/20 24 01/14/2024 IRON PANEL iron saturation (calculated) 15.7 % 15.0-5 5.0 Not Available [facility] [address] [facility] [address], [place], [address], 01/16/2024 14:32:54 01/14/20 24 01/14/2024 THYRO ID-ST IM. HORMO NE (TSH) , HIGH- SENSI TIVE thyroid-stim . hormone (TSH), hs 1.36 uIU/m L 0.27-4 .20 Not Available [facility] [address] [facility] [address], [place], [address], 01/16/2024 14:32:55 02/02/20 24 02/02/2024 AMYLA SE amylase 75.0 U/L 31.0-1 24.0 Not Available [facility] [address] [facility] [address], [place], [address], 02/05/2024 00:51:39 02/02/20 24 02/02/2024 COMPR EHENS FLORIN METAB OLIC PANEL sodium 141 mmol/ L 134-14 4 Not Available [facility] [address] [facility] [address], [place], [address], 02/05/2024 00:51:40 02/02/20 24 02/02/2024 COMPR EHENS FLORIN METAB OLIC PANEL potassium 3.8 mmol/ L 3.5-5. 2 Not Available [facility] [address] [facility] [address], [place], [address], 02/05/2024 00:51:40 02/02/20 24 02/02/2024 COMPR EHENS FLORIN METAB OLIC PANEL chloride 103 mmol/ L 97-108 Not Available [facility] [address] [facility] [address], [place], [address], 02/05/2024 00:51:40 02/02/20 24 02/02/2024 COMPR EHENS FLORIN METAB OLIC PANEL carbon dioxide (co2) 30.0 mmol/ L 18.0-2 9.0 high Not Available [facility] [address] [facility] [address], [place], [address], 02/05/2024 00:51:40 02/02/20 24 02/02/2024 COMPR EHENS FLORIN METAB OLIC PANEL glucose 96 mg/dL 65-99 Abdullahi l Fasti ng: < 100 mg/dL Impai red Fasti n - 125 mg/dL Diagn ostic of Diabe paula: => 126 mg/dL Ameri can [facility] i[facility] n, 2007 Not Available [facility] [address] [facility] [address], [place], [address], 02/05/2024 00:51:40 02/02/20 24 02/02/2024 COMPR EHENS FLORIN METAB OLIC PANEL urea nitrogen (BUN) 13 mg/dL 8-23 Not Available [facility] [address] [facility] [address], [place], [address], 02/05/2024 00:51:40 02/02/20 24 02/02/2024 COMPR EHENS FLORIN METAB OLIC PANEL creatinine 1.08 mg/dL 0.57-1 .00 high Not Available [facility] [address] [facility] [address], [place], [address], 02/05/2024 00:51:40 02/02/20 24 02/02/2024 COMPR EHENS FLORIN METAB OLIC PANEL eGFR for nonafrican AM 50 mL/mi nute/ 1.73_ m2 >59 low Not Available [facility] [address] [facility] [address], [place], [address], 02/05/2024 00:51:40 02/02/20 24 02/02/2024 COMPR EHENS FLORIN METAB OLIC PANEL eGFR for AM 60 mL/mi nute/ 1.73_ m2 >59 MDRD Study Equat ion: The calcu lated GFR is NOT appli cable for pedia tric (< 18 years old) and > 70 year old patie nts and patie nts that are NOT of [place] . Not Available [facility] [address] [facility] [address], [place], [address], 02/05/2024 00:51:40 02/02/20 24 02/02/2024 COMPR EHENS FLORIN METAB OLIC PANEL calcium 9.8 mg/dL 8.7-10 .3 Not Available [facility] [address] [facility] [address], [place], [address], 02/05/2024 00:51:40 02/02/20 24 02/02/2024 COMPR EHENS FLORIN METAB OLIC PANEL protein, total 7.7 gm/dL 6.4-8. 3 Not Available [facility] [address] [facility] [address], [place], [address], 02/05/2024 00:51:40 02/02/20 24 02/02/2024 COMPR EHENS FLORIN METAB OLIC PANEL albumin 4.5 gm/dL 3.5-5. 2 Not Available [facility] [address] [facility] [address], [place], [address], 02/05/2024 00:51:40 02/02/20 24 02/02/2024 COMPR EHENS FLORIN METAB OLIC PANEL bilirubin, total 0.40 mg/dL 0.00-1 .20 Not Available [facility] [address] [facility] [address], [place], [address], 02/05/2024 00:51:40 02/02/20 24 02/02/2024 COMPR EHENS FLORIN METAB OLIC PANEL alkaline phosphatase (ALP) 86 U/L 39-117 Not Available [facility] [address] [facility] [address], [place], [address], 02/05/2024 00:51:40 02/02/20 24 02/02/2024 COMPR EHENS FLORIN METAB OLIC PANEL aspartate aminotransfe rase (AST) 25 U/L 0-32 Not Available [facility] [address] [place] [address] [address], [place], [address], 02/05/2024 00:51:40 02/02/20 24 02/02/2024 COMPR EHENS FLORIN METAB OLIC PANEL alanine aminotransfe rase (ALT) 12 U/L 0-33 Not Available [facility] [address] [facility] [address], [place], [address], 02/05/2024 00:51:40 02/02/20 24 02/02/2024 COMPR EHENS FLORIN METAB OLIC PANEL A/G ratio (calculated) 1.4 ratio 1.0-2. 7 Not Available [facility] [address] [facility] [address], [place], [address], 02/05/2024 00:51:40 02/02/20 24 02/02/2024 COMPR EHENS FLORIN METAB OLIC PANEL globulin (calculated) 3.2 gm/dL 1.5-3. 8 Not Available [facility] [address] [facility] [address], [place], [address], 02/05/2024 00:51:40 02/02/20 24 02/02/2024 COMPR EHENS FLORIN METAB OLIC PANEL BUN/creatini ne ratio (calculated) 12.0 ratio 8.0-20 .0 Not Available [facility] [address] [facility] [address], [place], [address], 02/05/2024 00:51:40 02/02/20 24 02/02/2024 COMPR EHENS FLORIN METAB OLIC PANEL serum hemolysis index NORMAL index normal Not Available [facility] [address] [facility] [address], [place], [address], 02/05/2024 00:51:40 02/02/20 24 02/02/2024 LIPAS E lipase 21 U/L 0-59 Not Available [place] [address] [facility] [address], [place], [address], 02/05/2024 00:51:41 02/02/20 24 02/02/2024 CBC WITH AUTO- DIFFE RENTI AL WBC 5.6 10*3/ uL 3.4-10 .8 Not Available [facility] [address], [place], [address], 02/05/2024 00:51:41 02/02/20 24 02/02/2024 CBC WITH AUTO- DIFFE RENTI AL RBC 4.10 10*6/ uL 3.80-5 .30 Not Available [facility] [address] [facility] [address], [place], [address], 02/05/2024 00:51:41 02/02/20 24 02/02/2024 CBC WITH AUTO- DIFFE RENTI AL HGB 10.0 g/dL 11.1-1 5.9 low Not Available [facility] [address] [facility] [address], [place], [address], 02/05/2024 00:51:41 02/02/20 24 02/02/2024 CBC WITH AUTO- DIFFE RENTI AL HCT 34.5 % 34.0-4 6.6 Not Available [facility] [address] [facility] [address], [place], [address], 02/05/2024 00:51:41 02/02/20 24 02/02/2024 CBC WITH AUTO- DIFFE RENTI AL MCV 84 fL 79-97 Not Available [facility] [address] [facility] [address], [place], [address], 02/05/2024 00:51:41 02/02/20 24 02/02/2024 CBC WITH AUTO- DIFFE RENTI AL MCH 24.4 pg 26.6-3 3.0 low Not Available [facility] [address] [facility] [address], [place], [address], 02/05/2024 00:51:41 02/02/20 24 02/02/2024 CBC WITH AUTO- DIFFE RENTI AL MCHC 29.0 g/dL 31.5-3 5.7 low Not Available [facility] [address] [facility] [address], [place], [address], 02/05/2024 00:51:41 02/02/20 24 02/02/2024 CBC WITH AUTO- DIFFE RENTI AL RDW 16.7 % 11.5-1 4.5 high Not Available [facility] [address] [facility] [address], [place], [address], 02/05/2024 00:51:41 02/02/2002/02/2024 CBC WITH AUTO- DIFFE RENTI AL platelets 193 PLATEL ETS APPEAR ADEQUA TE 10*3/ uL 150-40 0 Not Available [facility] [address] [facility] [address], [place], [address], 02/05/2024 00:51:41 02/02/20 24 02/02/2024 CBC WITH AUTO- DIFFE RENTI AL MPV ---- fL 9-13 Not Available [facility] [address] [facility] [address], [place], [address], 02/05/2024 00:51:41 02/02/20 24 02/02/2024 CBC WITH AUTO- DIFFE RENTI AL neutrophils 56.7 % 40.0-7 4.0 Not Available [facility] [address] [place] [address] [address], [place], [address], 02/05/2024 00:51:41 02/02/20 24 02/02/2024 CBC WITH AUTO- DIFFE RENTI AL absolute neutrophils 3.19 10*3/ uL 1.40-7 .00 Not Available [facility] [address] [facility] [address], [place], [address], 02/05/2024 00:51:41 02/02/20 24 02/02/2024 CBC WITH AUTO- DIFFE RENTI AL lymphocytes 34.8 % 14.0-4 6.0 Not Available [facility] [address] [facility] [address], [place], [address], 02/05/2024 00:51:41 02/02/20 24 02/02/2024 CBC WITH AUTO- DIFFE RENTI AL absolute lymphocytes 1.96 10*3/ uL 0.70-3 .10 Not Available [facility] [address] [facility] [address], [place], [address], 02/05/2024 00:51:41 02/02/20 24 02/02/2024 CBC WITH AUTO- DIFFE RENTI AL monocytes 6.4 % 4.0-12 .0 Not Available [facility] [address] [facility] [address], [place], [address], 02/05/2024 00:51:41 02/02/20 24 02/02/2024 CBC WITH AUTO- DIFFE RENTI AL absolute monocytes 0.36 10*3/ uL 0.10-0 .90 Not Available [facility] [address] [facility] [address], [place], [address], 02/05/2024 00:51:41 02/02/20 24 02/02/2024 CBC WITH AUTO- DIFFE RENTI AL eosinophils 1.2 % 0.0-5. 0 Not Available [address], [place], [address], 02/05/2024 00:51:41 02/02/20 24 02/02/2024 CBC WITH AUTO- DIFFE RENTI AL absolute eosinophils 0.07 10*3/ uL 0.00-0 .40 Not Available [address], [place], [address], 02/05/2024 00:51:41 02/02/20 24 02/02/2024 CBC WITH AUTO- DIFFE RENTI AL basophils 0.7 % 0.0-3. 0 Not Available [address], [place], [address], 02/05/2024 00:51:41 02/02/20 24 02/02/2024 CBC WITH AUTO- DIFFE RENTI AL absolute basophils 0.04 10*3/ uL 0.00-0 .20 Not Available [facility] [address] [facility] [address], [place], [address], 02/05/2024 00:51:41 02/02/20 24 02/02/2024 CBC WITH AUTO- DIFFE RENTI AL imm. gran. 0.2 % 0.0-2. 0 Not Available [facility] [address] [facility] [address], [place], [address], 02/05/2024 00:51:41 02/02/20 24 02/02/2024 CBC WITH AUTO- DIFFE RENTI AL abs. imm. gran. 0.01 10*3/ uL 0.00-0 .10 Not Available [facility] [address] [facility] [address], [place], [address], 02/05/2024 00:51:41 03/10/20 24 03/10/2024 CBC WITH AUTO- DIFFE RENTI AL WBC 5.2 10*3/ uL 3.4-10 .8 Not Available [facility] [address] [facility] [address], [place], [address], 03/12/2024 10:35:51 03/10/20 24 03/10/2024 CBC WITH AUTO- DIFFE RENTI AL RBC 3.69 FEW SCHIST OCYTES PRESEN T 10*6/ uL 3.80-5 .30 low Not Available [facility] [address] [facility] [address], [place], [address], 03/12/2024 10:35:51 03/10/20 24 03/10/2024 CBC WITH AUTO- DIFFE RENTI AL HGB 8.9 g/dL 11.1-1 5.9 low Not Available [facility] [address], [place], [address], 03/12/2024 10:35:51 03/10/20 24 03/10/2024 CBC WITH AUTO- DIFFE RENTI AL HCT 30.5 % 34.0-4 6.6 low Not Available [facility] [address] [facility] [address], [place], [address], 03/12/2024 10:35:51 03/10/20 24 03/10/2024 CBC WITH AUTO- DIFFE RENTI AL MCV 83 fL 79-97 Not Available [facility] [address] [facility] [address], [place], [address], 03/12/2024 10:35:51 03/10/20 24 03/10/2024 CBC WITH AUTO- DIFFE RENTI AL MCH 24.1 pg 26.6-3 3.0 low Not Available [facility] [address] [facility] [address], [place], [address], 03/12/2024 10:35:51 03/10/20 24 03/10/2024 CBC WITH AUTO- DIFFE RENTI AL MCHC 29.2 g/dL 31.5-3 5.7 low Not Available [facility] [address] [facility] [address], [place], [address], 03/12/2024 10:35:51 03/10/20 24 03/10/2024 CBC WITH AUTO- DIFFE RENTI AL RDW 16.9 % 11.5-1 4.5 high Not Available [facility] [address], [place], [address], 03/12/2024 10:35:51 03/10/20 24 03/10/2024 CBC WITH AUTO- DIFFE RENTI AL platelets 199 10*3/ uL 150-40 0 Not Available [facility] [address] [facility] [address], [place], [address], 03/12/2024 10:35:51 03/10/20 24 03/10/2024 CBC WITH AUTO- DIFFE RENTI AL MPV NOT AVAILA BLE fL 9-13 Not Available [facility] [address] [facility] [address], [place], [address], 03/12/2024 10:35:51 03/10/20 24 03/10/2024 CBC WITH AUTO- DIFFE RENTI AL neutrophils 54.5 % 40.0-7 4.0 Not Available [facility] [address] [facility] [address], [place], [address], 03/12/2024 10:35:51 03/10/20 24 03/10/2024 CBC WITH AUTO- DIFFE RENTI AL absolute neutrophils 2.81 10*3/ uL 1.40-7 .00 Not Available [facility] [address] [facility] [address], [place], [address], 03/12/2024 10:35:51 03/10/20 24 03/10/2024 CBC WITH AUTO- DIFFE RENTI AL lymphocytes 33.7 % 14.0-4 6.0 Not Available [facility] [address] [facility] [address], [place], [address], 03/12/2024 10:35:51 03/10/20 24 03/10/2024 CBC WITH AUTO- DIFFE RENTI AL absolute lymphocytes 1.74 10*3/ uL 0.70-3 .10 Not Available [facility] [address] [facility] [address], [place], [address], 03/12/2024 10:35:51 03/10/20 24 03/10/2024 CBC WITH AUTO- DIFFE RENTI AL monocytes 8.9 % 4.0-12 .0 Not Available [facility] [address] [facility] [address], [place], [address], 03/12/2024 10:35:51 03/10/20 24 03/10/2024 CBC WITH AUTO- DIFFE RENTI AL absolute monocytes 0.46 10*3/ uL 0.10-0 .90 Not Available [facility] [address] [facility] [address], [place], [address], 03/12/2024 10:35:51 03/10/20 24 03/10/2024 CBC WITH AUTO- DIFFE RENTI AL eosinophils 1.7 % 0.0-5. 0 Not Available [facility] [address] [facility] [address], [place], [address], 03/12/2024 10:35:51 03/10/20 24 03/10/2024 CBC WITH AUTO- DIFFE RENTI AL absolute eosinophils 0.09 10*3/ uL 0.00-0 .40 Not Available [facility] [address] [facility] [address], [place], [address], 03/12/2024 10:35:51 03/10/20 24 03/10/2024 CBC WITH AUTO- DIFFE RENTI AL basophils 1.0 % 0.0-3. 0 Not Available [facility] [address] [facility] [address], [place], [address], 03/12/2024 10:35:51 03/10/20 24 03/10/2024 CBC WITH AUTO- DIFFE RENTI AL absolute basophils 0.05 10*3/ uL 0.00-0 .20 Not Available [facility] [address] [facility] [address], [place], [address], 03/12/2024 10:35:51 03/10/20 24 03/10/2024 CBC WITH AUTO- DIFFE RENTI AL imm. gran. 0.2 % 0.0-2. 0 Not Available [facility] [address] [facility] [address], [place], [address], 03/12/2024 10:35:51 03/10/20 24 03/10/2024 CBC WITH AUTO- DIFFE RENTI AL abs. imm. gran. 0.01 10*3/ uL 0.00-0 .10 Not Available [facility] [address] [facility] [address], [place], [address], 03/12/2024 10:35:51 03/10/20 24 03/10/2024 COMPR EHENS FLORIN METAB OLIC PANEL sodium 142 mmol/ L 134-14 4 Not Available [facility] [address] [facility] [address], [place], [address], 03/12/2024 10:35:52 03/10/20 24 03/10/2024 COMPR EHENS FLORIN METAB OLIC PANEL potassium 4.6 mmol/ L 3.5-5. 2 Not Available [facility] [address] [facility] [address], [place], [address], 03/12/2024 10:35:52 03/10/20 24 03/10/2024 COMPR EHENS FLORIN METAB OLIC PANEL chloride 106 mmol/ L 97-108 Not Available [facility] [address] [facility] [address], [place], [address], 03/12/2024 10:35:52 03/10/20 24 03/10/2024 COMPR EHENS FLORIN METAB OLIC PANEL carbon dioxide (co2) 26.0 mmol/ L 18.0-2 9.0 Not Available [facility] [address] [facility] [address], [place], [address], 03/12/2024 10:35:52 03/10/20 24 03/10/2024 COMPR EHENS FLORIN METAB OLIC PANEL glucose 78 mg/dL 65-99 Abdullahi l Fasti ng: < 100 mg/dL Impai red Fasti n - 125 mg/dL Diagn ostic of Diabe paula: => 126 mg/dL Ameri can Diabe paula [facility] iatio n, 2008 Not Available [facility] [address] [facility] [address], [place], [address], 03/12/2024 10:35:52 03/10/20 24 03/10/2024 COMPR EHENS FLORIN METAB OLIC PANEL urea nitrogen (BUN) 18 mg/dL 8-23 Not Available [facility] [address] [address], [place], [address], 03/12/2024 10:35:52 03/10/20 24 03/10/2024 COMPR EHENS FLORIN METAB OLIC PANEL creatinine 0.92 mg/dL 0.57-1 .00 Not Available [facility] [address] [facility] [address], [place], [address], 03/12/2024 10:35:52 03/10/20 24 03/10/2024 COMPR EHENS FLORIN METAB OLIC PANEL eGFR for nonafrican AM 60 mL/mi nute/ 1.73_ m2 >59 Not Available [facility] [address] [facility] [address], [place], [address], 03/12/2024 10:35:52 03/10/20 24 03/10/2024 COMPR EHENS FLORIN METAB OLIC PANEL eGFR for AM 72 mL/mi nute/ 1.73_ m2 >59 MDRD Study Equat ion: The calcu lated GFR is NOT appli cable for pedia tric (< 18 years old) and > 70 year old patie nts and patie nts that are NOT of stead y state . Not Available [facility] [address] [facility] [address], [place], [address], 03/12/2024 10:35:52 03/10/20 24 03/10/2024 COMPR EHENS FLORIN METAB OLIC PANEL calcium 9.3 mg/dL 8.7-10 .3 Not Available [facility] [address] [facility] [address], [place], [address], 03/12/2024 10:35:52 03/10/20 24 03/10/2024 COMPR EHENS FLORIN METAB OLIC PANEL protein, total 6.4 gm/dL 6.4-8. 3 Not Available [facility] [address] [facility] [address], [place], [address], 03/12/2024 10:35:52 03/10/20 24 03/10/2024 COMPR EHENS FLORIN METAB OLIC PANEL albumin 4.4 gm/dL 3.5-5. 2 Not Available [facility] [address] [facility] [address], [place], [address], 03/12/2024 10:35:52 03/10/20 24 03/10/2024 COMPR EHENS FLORIN METAB OLIC PANEL bilirubin, total 0.20 mg/dL 0.00-1 .20 Not Available [facility] [address] [facility] [address], [place], [address], 03/12/2024 10:35:52 03/10/20 24 03/10/2024 COMPR EHENS FLORIN METAB OLIC PANEL alkaline phosphatase (ALP) 63 U/L 39-117 Not Available [facility] [address] [facility] [address], [place], [address], 03/12/2024 10:35:52 03/10/20 24 03/10/2024 COMPR EHENS FLORIN METAB OLIC PANEL aspartate aminotransfe rase (AST) 25 U/L 0-32 Not Available [facility] [address] [facility] [address], [place], [address], 03/12/2024 10:35:52 03/10/20 24 03/10/2024 COMPR EHENS FLORIN METAB OLIC PANEL alanine aminotransfe rase (ALT) 15 U/L 0-33 Not Available [facility] [address] [facility] [address], [place], [address], 03/12/2024 10:35:52 03/10/20 24 03/10/2024 COMPR EHENS FLORIN METAB OLIC PANEL A/G ratio (calculated) 2.2 ratio 1.0-2. 7 Not Available [place] [address] [facility] [address], [place], [address], 03/12/2024 10:35:52 03/10/20 24 03/10/2024 COMPR EHENS FLORIN METAB OLIC PANEL globulin (calculated) 2.0 gm/dL 1.5-3. 8 Not Available [facility] [address] [facility] [address], [place], [address], 03/12/2024 10:35:52 03/10/20 24 03/10/2024 COMPR EHENS FLORIN METAB OLIC PANEL BUN/creatini ne ratio (calculated) 19.6 ratio 8.0-20 .0 Not Available [facility] [address] [facility] [address], [place], [address], 03/12/2024 10:35:52 03/10/20 24 03/10/2024 COMPR EHENS FLORIN METAB OLIC PANEL serum hemolysis index NORMAL index normal Not Available [facility] [address] [facility] [address], [place], [address], 03/12/2024 10:35:52 03/10/20 24 03/10/2024 FOLAT E, SERUM folate 20.0 NG/mL 20 REFER ENCE RANGE : Abdullahi l: > 3.0 ng/mL Inter media te: 2.2 - 3.0 ng/mL Defic ient: < 2.2 ng/mL Not Available [facility] [address] [facility] [address], [place], [address], 03/12/2024 10:35:52 03/10/20 24 03/10/2024 IRON PANEL iron 36 mcg/d L 27-139 Not Available [facility] [address] [facility] [address], [place], [address], 03/12/2024 10:35:53 03/10/20 24 03/10/2024 IRON PANEL UIBC 427 ug/dL 111-34 3 high Not Available [facility] [address] [facility] [address], [place], [address], 03/12/2024 10:35:53 03/10/20 24 03/10/2024 IRON PANEL total iron binding capacity 463.0 mcg/d L 250.0- 450.0 high Not Available [facility] [address], [place], [address], 03/12/2024 10:35:53 03/10/20 24 03/10/2024 IRON PANEL iron saturation (calculated) 7.8 % 15.0-5 5.0 low Not Available [facility] [address] [facility] [address], [place], [address], 03/12/2024 10:35:53 03/10/20 24 03/10/2024 VITAM IN B12 vitamin B12 301 pg/mL 232-12 45 Not Available [facility] [address] [facility] [address], [place], [address], 03/12/2024 10:35:53 03/10/20 24 03/10/2024 IRON PANEL iron 36 mcg/d L 27-139 Not Available [facility] [address], [place], [address], 03/12/2024 10:41:09 03/10/20 24 03/10/2024 IRON PANEL UIBC 427 ug/dL 111-34 3 high Not Available [facility] [address] [address], [place], [address], 03/12/2024 10:41:09 03/10/20 24 03/10/2024 IRON PANEL total iron binding capacity 463.0 mcg/d L 250.0- 450.0 high Not Available [facility] [address] [facility] [address], [place], [address], 03/12/2024 10:41:09 03/10/20 24 03/10/2024 IRON PANEL iron saturation (calculated) 7.8 % 15.0-5 5.0 low Not Available [facility] [address], [place], [address], 03/12/2024 10:41:09 06/08/20 24 06/08/2024 HEMOG LOBIN A1C hemoglobin A1C 4.8 % 4.8-5. 6 ABDULLAHI L RANGE BASED ON LAN COL 2 (DCCT /NGSP ): Non-D iabet ic: < 5.7% Pre-D iabet es: 5.7 - 6.4% Diabe paula: => 6.5% GLYCE SHERI CONTR OL: < 7.0% Not Available [facility] [address] [facility] [address], [place], [address], 06/10/2024 11:16:56 06/08/20 24 06/08/2024 HEMOG LOBIN A1C estimated average glucose 90 Not Available [facility] [address] [facility] [address], [place], [address], 06/10/2024 11:16:56 06/08/20 24 06/08/2024 *C-PE PTIDE C-peptide 2.9 NG/mL 1.1-4. 4 NOTE: REFER ENCE RANGE APPLI ES TO FASTI NG SAMPL E ONLY. Not Available [facility] [address] [facility] [address], [place], [address], 06/10/2024 11:16:57 06/08/20 24 06/08/2024 LIPID PANEL W/ CALC. LDL cholesterol, total 173 mg/dL 100-19 9 Not Available [facility] [address], [place], [address], 06/10/2024 11:16:58 06/08/20 24 06/08/2024 LIPID PANEL W/ CALC. LDL HDL cholesterol 79 mg/dL =>40 Not Available [facility] [address] [facility] [address], [place], [address], 06/10/2024 11:16:58 06/08/20 24 06/08/2024 LIPID PANEL W/ CALC. LDL LDL cholesterol (calculated) 82 mg/dL 0-99 Not Available [facility] [address] [facility] [address], [place], [address], 06/10/2024 11:16:58 06/08/20 24 06/08/2024 LIPID PANEL W/ CALC. LDL triglyceride s 60 mg/dL 50-149 Not Available [facility] [address] [facility] [address], [place], [address], 06/10/2024 11:16:58 06/08/20 24 06/08/2024 LIPID PANEL W/ CALC. LDL chol/HDL ratio (calculated) 2.19 ratio 0.00-5 .00 Not Available [facility] [address] [facility] [address], [place], [address], 06/10/2024 11:16:58 06/08/20 24 06/08/2024 LIPID PANEL W/ CALC. LDL VLDL cholesterol (calculated) 12 mg/dL 5-40 Not Available [facility] [address] [facility] [address], [place], [address], 06/10/2024 11:16:58 06/08/20 24 06/08/2024 THYRO ID-ST IM. HORMO NE (TSH) , HIGH- SENSI TIVE thyroid-stim . hormone (TSH), hs 5.96 uIU/m L 0.27-4 .20 high Not Available [facility] [address] [facility] [address], [place], [address], 06/10/2024 11:16:58 06/08/20 24 06/08/2024 VITAM IN D, 25-HY DROXY TOTAL vitamin D, total 53.0 NG/mL 30.0-1 00.0 The Vitam in D Assay velvet parekh n has been updat ed to offer direc t trace abili ty to ID-LC -MS/M S Refer ence Measu remen t Proce dure along with a reduc tion in bioti n inter feren ce. Defic ient: < 20 ng/mL Insuf ficie nt: 21 - 29 ng/mL Suffi cient : 30 - 100 ng/mL Poten tial Intox icati on: > 100 ng/mL Not Available [facility] [address] [facility] [address], [place], [address], 06/10/2024 11:16:58 06/08/20 24 06/10/2024 LDL RASTA STERO L (DIRE CT) LDL chol. (direct) 77 mg/dL 0-99 normal Not Available [facility] [address] [facility] [address], [place], [address], 06/10/2024 11:16:59 11/25/19 25 11/24/2024 Iron and Iron julio ng capac ity panel - Serum or Plasm a iron [mass/volume ] in serum or plasma 48 ug/dL low: 50ug/d Lhigh: 212ug/ dL low Not Available Not Available 02/22/2025 09:52:50 11/25/19 25 11/24/2024 Iron and Iron julio ng capac ity panel - Serum or Plasm a iron binding capacity.uns aturated [mass/volume ] in serum or plasma 349 ug/dL low: 155ug/ dLhigh : 355ug/ dL Not Available Not Available 02/22/2025 09:52:50 11/25/19 25 11/24/2024 Iron and Iron julio ng capac ity panel - Serum or Plasm a iron binding capacity [mass/volume ] in serum or plasma 397 ug/dL low: 261ug/ dLhigh : 478ug/ dL Not Available Not Available 02/22/2025 09:52:50 11/25/19 25 11/24/2024 Iron and Iron julio ng capac ity panel - Serum or Plasm a iron saturation [mass fraction] in serum or plasma 12 % low: 20%hig h: 50% low Not Available Not Available 02/22/2025 09:52:50 11/25/19 25 11/24/2024 Iron and Iron julio ng capac ity panel - Serum or Plasm a Unknown Analyte RELEAS E TO PATIEN T->IMM EDIATE Not Available Not Available 09:52:50 11/25/19 25 11/24/2024 Iron and Iron julio ng capac ity panel - Serum or Plasm a interpretati on and review of laboratory results ABNORM AL Not Available Not Available 09:52:50 11/25/19 25 11/24/2024 CBC W Auto Diffe renti al panel - Blood leukocytes [#/volume] in blood by automated count 5.8 10*3/ uL low: 410*3/ uLhigh : 1010*3 /uL Not Available Not Available 02/22/2025 09:52:50 11/25/19 25 11/24/2024 CBC W Auto Diffe renti al panel - Blood hemoglobin [mass/volume ] in blood 11.5 g/dL low: 11.2g/ dLhigh : 15.7g/ dL Not Available Not Available 02/22/2025 09:52:50 11/25/19 25 11/24/2024 CBC W Auto Diffe renti al panel - Blood hematocrit [volume fraction] of blood by automated count 36.1 % low: 34.1%h igh: 44.9% Not Available Not Available 02/22/2025 09:52:50 11/25/19 25 11/24/2024 CBC W Auto Diffe renti al panel - Blood platelets [#/volume] in blood by automated count 154 10*3/ uL low: 24501* 3/uLhi gh: 50978* 3/uL low Not Available Not Available 02/22/2025 09:52:50 11/25/19 25 11/24/2024 CBC W Auto Diffe renti al panel - Blood MPV SEE BELOW low: 9.4fLh igh: 12.4fL Instr ument unabl e to provi de an accur ate resul t Not Available Not Available 02/22/2025 09:52:50 11/25/19 25 11/24/2024 CBC W Auto Diffe renti al panel - Blood erythrocytes [#/volume] in blood by automated count 4.15 10*6/ uL low: 3.9310 *6/uLh igh: 5.2210 *6/uL Not Available Not Available 02/22/2025 09:52:50 11/25/19 25 11/24/2024 CBC W Auto Diffe renti al panel - Blood MCV [entitic mean volume] in red blood cells by automated count 87 fL low: 79fLhi gh: 95fL Not Available Not Available 02/22/2025 09:52:50 11/25/19 25 11/24/2024 CBC W Auto Diffe renti al panel - Blood MCH [entitic mass] by automated count 27.7 pg low: 25.6pg high: 32.2pg Not Available Not Available 02/22/2025 09:52:50 11/25/19 25 11/24/2024 CBC W Auto Diffe renti al panel - Blood MCHC [entitic mass/volume] in red blood cells by automated count 31.9 g/dL low: 32.2g/ dLhigh : 36.5g/ dL low Not Available Not Available 02/22/2025 09:52:50 11/25/19 25 11/24/2024 CBC W Auto Diffe renti al panel - Blood erythrocyte [distwidth] in red blood cells by automated count 15.3 % low: 11.6%h igh: 14.4% high Not Available Not Available 02/22/2025 09:52:50 11/25/19 25 11/24/2024 CBC W Auto Diffe renti al panel - Blood neutrophils/ leukocytes in blood by automated count 65.1 % low: 36%hig h: 66% Not Available Not Available 02/22/2025 09:52:50 11/25/19 25 11/24/2024 CBC W Auto Diffe renti al panel - Blood lymphocytes/ leukocytes in blood by automated count 25.5 % low: 19%hig h: 40% Not Available Not Available 02/22/2025 09:52:50 11/25/19 25 11/24/2024 CBC W Auto Diffe renti al panel - Blood monocytes/le ukocytes in blood by automated count 7.3 % low: 4.1%hi gh: 12.1% Not Available Not Available 02/22/2025 09:52:50 11/25/19 25 11/24/2024 CBC W Auto Diffe renti al panel - Blood eosinophils/ leukocytes in blood by automated count 1.4 % low: 0%high : 3.5% Not Available Not Available 02/22/2025 09:52:50 11/25/19 25 11/24/2024 CBC W Auto Diffe renti al panel - Blood basophils/le ukocytes in blood by automated count 0.5 % low: 0%high : 1% Not Available Not Available 02/22/2025 09:52:50 11/25/19 25 11/24/2024 CBC W Auto Diffe renti al panel - Blood neutrophils [#/volume] in blood by automated count 3.8 10*3/ uL low: 1.410* 3/uLhi gh: 6.610* 3/uL Not Available Not Available 02/22/2025 09:52:50 11/25/19 25 11/24/2024 CBC W Auto Diffe renti al panel - Blood lymphocytes [#/volume] in blood by automated count 1.5 10*3/ uL low: 0.810* 3/uLhi gh: 410*3/ uL Not Available Not Available 02/22/2025 09:52:50 11/25/19 25 11/24/2024 CBC W Auto Diffe renti al panel - Blood monocytes [#/volume] in blood by automated count 0.4 10*3/ uL low: 0.210* 3/uLhi gh: 1.210* 3/uL Not Available Not Available 02/22/2025 09:52:50 11/25/19 25 11/24/2024 CBC W Auto Diffe renti al panel - Blood eosinophils [#/volume] in blood by automated count 0.1 10*3/ uL low: 010*3/ uLhigh : 0.410* 3/uL Not Available Not Available 02/22/2025 09:52:50 11/25/19 25 11/24/2024 CBC W Auto Diffe renti al panel - Blood basophils [#/volume] in blood by automated count 0 10*3/ uL low: 010*3/ uLhigh : 0.110* 3/uL Not Available Not Available 02/22/2025 09:52:50 11/25/19 25 11/24/2024 CBC W Auto Diffe renti al panel - Blood interpretati on and review of laboratory results ABNORM AL Not Available Not Available 09:52:50 11/25/19 25 11/25/2024 Cobal hammer (Bess min B12) [Mass /volu me] in Serum or Plasm a cobalamin (vitamin B12) [mass/volume ] in serum or plasma 170 pg/mL low: 180pg/ mLhigh : 914pg/ mL low Not Available Not Available 02/22/2025 09:52:50 11/25/19 25 11/25/2024 Cobal hammer (Bess min B12) [Mass /volu me] in Serum or Plasm a Unknown Analyte RELEAS E TO PATIEN T->IMM EDIATE Not Available Not Available 09:52:50 11/25/19 25 11/25/2024 Cobal hammer (Bess min B12) [Mass /volu me] in Serum or Plasm a interpretati on and review of laboratory results ABNORM AL Not Available Not Available 09:52:50 11/25/1911/25/2024 Folat e [Mass /volu me] in Serum or Plasm a folate [mass/volume ] in serum or plasma 10.77 NG/mL low: 5.9NG/ mL Not Available Not Available 02/22/2025 09:52:50 11/25/19 25 11/25/2024 Folat e [Mass /volu me] in Serum or Plasm a Unknown Analyte RELEAS E TO PATIEN T->IMM EDIATE IS THE PATIEN T REQUIR ED TO BE FASTIN G FOR 12 HOURS? ->NO Not Available Not Available 09:52:50 11/25/1911/25/2024 Fernie tin [Mass /volu me] in Serum or Plasm a ferritin [mass/volume ] in serum or plasma 25 NG/mL low: 11NG/m Lhigh: 307NG/ mL Not Available Not Available 02/22/2025 09:52:50 11/25/19 25 11/25/2024 Fernie tin [Mass /volu me] in Serum or Plasm a Unknown Analyte RELEAS E TO PATIEN T->IMM EDIATE Not Available Not Available 09:52:50 11/25/19 25 11/24/2024 [employer]pr ehens [facility]orin metab olic 2000 panel - Serum or Plasm a glucose [mass/volume ] in serum or plasma 90 mg/dL low: 70mg/d Lhigh: 105mg/ dL Not Available Not Available 02/22/2025 09:52:50 11/25/19 25 11/24/2024 [facility] [employer] [facility] [facility] 1999 panel - Serum or Plasm a urea nitrogen [mass/volume ] in serum or plasma 20 mg/dL low: 7mg/dL high: 25mg/d L Not Available Not Available 02/22/2025 09:52:50 11/25/19 25 11/24/2024 [facility] 1999 panel - Serum or Plasm a creatinine [mass/volume ] in serum or plasma 0.7 mg/dL low: 0.6mg/ dLhigh : 1.2mg/ dL Not Available Not Available 02/22/2025 09:52:50 11/25/19 25 11/24/2024 [facility] [employer] florin NOZA [facility] 1999 panel - Serum or Plasm a sodium [moles/volum e] in serum or plasma 140 text: 136 - 145 mEq/L Not Available Not Available 02/22/2025 09:52:50 11/25/19 25 11/24/2024 [facility] 2000 panel - Serum or Plasm a potassium [moles/volum e] in serum or plasma 4.2 text: 3.5 - 5.1 mEq/L Not Available Not Available 02/22/2025 09:52:50 11/25/19 25 11/24/2024 [facility] 1999 panel - Serum or Plasm a chloride [moles/volum e] in serum or plasma 106 text: 98 - 107 mEq/L Not Available Not Available 02/22/2025 09:52:50 11/25/19 25 11/24/2024 [facility] 2000 panel - Serum or Plasm a bicarbonate [moles/volum e] in serum or plasma 31 text: 21 - 31 mEq/L Not Available Not Available 02/22/2025 09:52:50 11/25/19 25 11/24/2024 [facility] [employer] NOZA olic 2000 panel - Serum or Plasm a bilirubin.to lino [mass/volume ] in serum or plasma 0.5 mg/dL low: 0.3mg/ dLhigh : 1mg/dL Not Available Not Available 02/22/2025 09:52:50 03/13/20 25 11/24/2024 [facility] 1999 panel - Serum or Plasm a alkaline phosphatase [enzymatic activity/vol ume] in serum or plasma 64 U/L low: 34U/Lh igh: 104U/L Not Available Not Available 02/22/2025 09:52:50 11/25/19 25 11/24/2024 [facility] 1999 panel - Serum or Plasm a aspartate aminotransfe rase [enzymatic activity/vol ume] in serum or plasma 22 U/L low: 13U/Lh igh: 39U/L Not Available Not Available 02/22/2025 09:52:50 11/25/19 25 11/24/2024 [facility] 1999 panel - Serum or Plasm a alanine aminotransfe rase [enzymatic activity/vol ume] in serum or plasma 12 U/L low: 7U/Lhi gh: 52U/L Not Available Not Available 02/22/2025 09:52:50 11/25/19 25 11/24/[address] [facility] 1999 panel - Serum or Plasm a protein [mass/volume ] in serum or plasma 6.4 g/dL low: 6.4g/d Lhigh: 8.9g/d L Not Available Not Available 02/22/2025 09:52:50 11/25/19 25 11/24/2024 [facility] [facility] 1999 panel - Serum or Plasm a albumin [mass/volume ] in serum or plasma by bromocresol green (bcg) dye binding method 4.3 g/dL low: 3.5g/d Lhigh: 5.7g/d L Not Available Not Available 02/22/2025 09:52:50 11/25/19 25 11/24/2024 [facility] 1999 panel - Serum or Plasm a calcium [mass/volume ] in serum or plasma 9.6 mg/dL low: 8.6mg/ dLhigh : 10.3mg /dL Not Available Not Available 02/22/2025 09:52:50 11/25/19 25 11/24/[address] [facility] 1999 panel - Serum or Plasm a anion gap in serum or plasma by calculated.4 ions 7.2 text: 7.0 - 15.0 mEq/L Not Available Not Available 02/22/2025 09:52:50 11/25/19 25 11/24/2024 [facility]pr [facility] florin metab olic 1999 panel - Serum or Plasm a globulin [mass/volume ] in serum by calculation 2.1 g/dL low: 2g/dLh igh: 3.5g/d L Not Available Not Available 02/22/2025 09:52:50 11/25/19 25 11/24/2024 [facility]pr [facility]hens florin metab olic 2000 panel - Serum or Plasm a eGFR 90 text: >60 mL/min /1.73m 2 This eGFR is calcu lated using 2020 CKD-E PI Creat inine equat ion witho ut race modif ier based on the NKF-A SN task force recom menda tions Equat ion: eGFR= 142*m in(SC r/k,1 )a*ma x(SCr /k,1) -1.20 0*0.9 938Ag e*1.0 12 (if femal e), where SCr is serum creat inine , k is 0.7 for femal es and 0.9 for males , and a is -0.24 1 for femal es and -0.30 2 for males Not Available Not Available 02/22/2025 09:52:50 11/25/19 25 11/24/2024 Compr [facility]hens florin metab olic 1999 panel - Serum or Plasm a Unknown Analyte RELEAS E TO PATIEN T->IMM EDIATE IS THE PATIEN T REQUIR ED TO BE FASTIN G FOR 8 HOURS? ->NO Not Available Not Available 09:52:50 03/16/20 25 03/16/2025 [employer] capac ity panel - Serum or Plasm a iron [mass/volume ] in serum or plasma 68 ug/dL low: 50ug/d Lhigh: 212ug/ dL Not Available Not Available 04/05/2025 03:25:44 03/16/20 25 03/16/2025 [employer] capac ity panel - Serum or Plasm a iron binding capacity.uns aturated [mass/volume ] in serum or plasma 263 ug/dL low: 155ug/ dLhigh : 355ug/ dL Not Available Not Available 04/05/2025 03:25:44 03/16/20 25 03/16/2025 [employer] capac ity panel - Serum or Plasm a iron binding capacity [mass/volume ] in serum or plasma 331 ug/dL low: 261ug/ dLhigh : 478ug/ dL Not Available Not Available 04/05/2025 03:25:44 03/16/20 25 03/16/2025 [employer] capac ity panel - Serum or Plasm a iron saturation [mass fraction] in serum or plasma 21 % low: 20%hig h: 50% Not Available Not Available 04/05/2025 03:25:44 03/16/20 25 03/16/2025 [employer] capac ity panel - Serum or Plasm a Unknown Analyte RELEAS E TO PATIEN T->IMM EDIATE Not Available Not Available 03:25:44 03/16/20 25 03/16/2025 CBC W Auto Diffe renti al panel - Blood leukocytes [#/volume] in blood by automated count 5.3 10*3/ uL low: 410*3/ uLhigh : 1010*3 /uL Not Available Not Available 04/05/2025 03:25:44 03/16/20 25 03/16/2025 CBC W Auto Diffe renti al panel - Blood hemoglobin [mass/volume ] in blood 11.8 g/dL low: 11.2g/ dLhigh : 15.7g/ dL Not Available Not Available 04/05/2025 03:25:44 03/16/20 25 03/16/2025 CBC W Auto Diffe renti al panel - Blood hematocrit [volume fraction] of blood by automated count 37.3 % low: 34.1%h igh: 44.9% Not Available Not Available 04/05/2025 03:25:44 03/16/20 25 03/16/2025 CBC W Auto Diffe renti al panel - Blood platelets [#/volume] in blood by automated count 142 10*3/ uL low: 56767* 3/uLhi gh: 38313* 3/uL low Not Available Not Available 04/05/2025 03:25:44 03/16/20 25 03/16/2025 CBC W Auto Diffe renti al panel - Blood MPV SEE BELOW low: 9.4fLh igh: 12.4fL Instr ument unabl e to provi de an accur ate resul t Not Available Not Available 04/05/2025 03:25:44 03/16/20 25 03/16/2025 CBC W Auto Diffe renti al panel - Blood erythrocytes [#/volume] in blood by automated count 4.13 10*6/ uL low: 3.9310 *6/uLh igh: 5.2210 *6/uL Not Available Not Available 04/05/2025 03:25:44 03/16/20 25 03/16/2025 CBC W Auto Diffe renti al panel - Blood MCV [entitic mean volume] in red blood cells by automated count 90 fL low: 79fLhi gh: 95fL Not Available Not Available 04/05/2025 03:25:44 03/16/20 25 03/16/2025 CBC W Auto Diffe renti al panel - Blood MCH [entitic mass] by automated count 28.6 pg low: 25.6pg high: 32.2pg Not Available Not Available 04/05/2025 03:25:44 03/16/20 25 03/16/2025 CBC W Auto Diffe renti al panel - Blood MCHC [entitic mass/volume] in red blood cells by automated count 31.6 g/dL low: 32.2g/ dLhigh : 36.5g/ dL low Not Available Not Available 04/05/2025 03:25:44 03/16/20 25 03/16/2025 CBC W Auto Diffe renti al panel - Blood erythrocyte [distwidth] in red blood cells by automated count 14.6 % low: 11.6%h igh: 14.4% high Not Available Not Available 04/05/2025 03:25:44 03/16/20 25 03/16/2025 CBC W Auto Diffe renti al panel - Blood neutrophils/ leukocytes in blood by automated count 61.4 % low: 36%hig h: 66% Not Available Not Available 04/05/2025 03:25:44 03/16/20 25 03/16/2025 CBC W Auto Diffe renti al panel - Blood lymphocytes/ leukocytes in blood by automated count 30 % low: 19%hig h: 40% Not Available Not Available 04/05/2025 03:25:44 03/16/20 25 03/16/2025 CBC W Auto Diffe renti al panel - Blood monocytes/le ukocytes in blood by automated count 6.1 % low: 4.1%hi gh: 12.1% Not Available Not Available 04/05/2025 03:25:44 03/16/20 25 03/16/2025 CBC W Auto Diffe renti al panel - Blood eosinophils/ leukocytes in blood by automated count 1.5 % low: 0%high : 3.5% Not Available Not Available 04/05/2025 03:25:44 03/16/20 25 03/16/2025 CBC W Auto Diffe renti al panel - Blood basophils/le ukocytes in blood by automated count 0.8 % low: 0%high : 1% Not Available Not Available 04/05/2025 03:25:44 03/16/20 25 03/16/2025 CBC W Auto Diffe renti al panel - Blood neutrophils [#/volume] in blood by automated count 3.2 10*3/ uL low: 1.410* 3/uLhi gh: 6.610* 3/uL Not Available Not Available 04/05/2025 03:25:44 03/16/20 25 03/16/2025 CBC W Auto Diffe renti al panel - Blood lymphocytes [#/volume] in blood by automated count 1.6 10*3/ uL low: 0.810* 3/uLhi gh: 410*3/ uL Not Available Not Available 04/05/2025 03:25:44 03/16/20 25 03/16/2025 CBC W Auto Diffe renti al panel - Blood monocytes [#/volume] in blood by automated count 0.3 10*3/ uL low: 0.210* 3/uLhi gh: 1.210* 3/uL Not Available Not Available 04/05/2025 03:25:44 03/16/20 25 03/16/2025 CBC W Auto Diffe renti al panel - Blood eosinophils [#/volume] in blood by automated count 0.1 10*3/ uL low: 010*3/ uLhigh : 0.410* 3/uL Not Available Not Available 04/05/2025 03:25:44 03/16/20 25 03/16/2025 CBC W Auto Diffe renti al panel - Blood basophils [#/volume] in blood by automated count 0 10*3/ uL low: 010*3/ uLhigh : 0.110* 3/uL Not Available Not Available 04/05/2025 03:25:44 03/16/20 25 03/16/2025 CBC W Auto Diffe renti al panel - Blood interpretati on and review of laboratory results ABNORM AL Not Available Not Available 03:25:44 03/16/20 25 03/20/2025 Cobal hammer (Bess min B12) [Mass /volu me] in Serum or Plasm a cobalamin (vitamin B12) [mass/volume ] in serum or plasma 313 pg/mL low: 180pg/ mLhigh : 914pg/ mL Not Available Not Available 04/05/2025 03:25:43 03/16/20 25 03/20/2025 Cobal hammer (Bess min B12) [Mass /volu me] in Serum or Plasm a Unknown Analyte RELEAS E TO PATIEN T->IMM EDIATE Not Available Not Available 03:25:43 03/16/20 25 03/20/2025 Folat e [Mass /volu me] in Serum or Plasm a folate [mass/volume ] in serum or plasma 13.3 NG/mL low: 5.9NG/ mL Not Available Not Available 04/05/2025 03:25:43 03/16/20 25 03/20/2025 Folat e [Mass /volu me] in Serum or Plasm a Unknown Analyte RELEAS E TO PATIEN T->IMM EDIATE IS THE PATIEN T REQUIR ED TO BE FASTIN G FOR 12 HOURS? ->NO Not Available Not Available 03:25:43 03/16/20 25 03/20/2025 Fernie tin [Mass /volu me] in Serum or Plasm a ferritin [mass/volume ] in serum or plasma 154 NG/mL low: 11NG/m Lhigh: 307NG/ mL Not Available Not Available 04/05/2025 03:25:43 03/16/20 25 03/20/2025 Fernie tin [Mass /volu me] in Serum or Plasm a Unknown Analyte RELEAS E TO PATIEN T->IMM EDIATE Not Available Not Available 03:25:43 03/16/20 25 03/16/2025 Compr ehens florin metab olic 1999 panel - Serum or Plasm a glucose [mass/volume ] in serum or plasma 109 mg/dL low: 70mg/d Lhigh: 105mg/ dL high Not Available Not Available 04/05/2025 03:25:43 03/16/20 25 03/16/2025 Compr ehens florin metab olic 1999 panel - Serum or Plasm a urea nitrogen [mass/volume ] in serum or plasma 18 mg/dL low: 7mg/dL high: 25mg/d L Not Available Not Available 04/05/2025 03:25:43 03/16/20 25 03/16/2025 Compr ehens florin metab olic 2000 panel - Serum or Plasm a creatinine [mass/volume ] in serum or plasma 1 mg/dL low: 0.6mg/ dLhigh : 1.2mg/ dL Not Available Not Available 04/05/2025 03:25:43 03/16/20 25 03/16/2025 Compr ehens florin metab olic 1999 panel - Serum or Plasm a sodium [moles/volum e] in serum or plasma 143 text: 136 - 145 mEq/L Not Available Not Available 04/05/2025 03:25:43 03/16/20 25 03/16/2025 [employer]pr [employer] metab olic 1999 panel - Serum or Plasm a potassium [moles/volum e] in serum or plasma 3.8 text: 3.5 - 5.1 mEq/L Not Available Not Available 04/05/2025 03:25:43 03/16/20 25 03/16/2025 Compr ehens florin metab olic 2000 panel - Serum or Plasm a chloride [moles/volum e] in serum or plasma 106 text: 98 - 107 mEq/L Not Available Not Available 04/05/2025 03:25:43 03/16/20 25 03/16/2025 Compr ehens florin metab olic 2000 panel - Serum or Plasm a bicarbonate [moles/volum e] in serum or plasma 32 text: 21 - 31 mEq/L high Not Available Not Available 04/05/2025 03:25:43 03/16/20 25 03/16/2025 [facility] 1999 panel - Serum or Plasm a bilirubin.to lino [mass/volume ] in serum or plasma 0.5 mg/dL low: 0.3mg/ dLhigh : 1mg/dL Not Available Not Available 04/05/2025 03:25:43 03/16/20 25 03/16/2025 [facility] 1999 panel - Serum or Plasm a alkaline phosphatase [enzymatic activity/vol ume] in serum or plasma 55 U/L low: 34U/Lh igh: 104U/L Not Available Not Available 04/05/2025 03:25:43 03/16/20 25 03/16/2025 [facility] 1999 panel - Serum or Plasm a aspartate aminotransfe rase [enzymatic activity/vol ume] in serum or plasma 22 U/L low: 13U/Lh igh: 39U/L Not Available Not Available 04/05/2025 03:25:43 03/16/20 25 03/16/2025 [facility] 1999 panel - Serum or Plasm a alanine aminotransfe rase [enzymatic activity/vol ume] in serum or plasma 13 U/L low: 7U/Lhi gh: 52U/L Not Available Not Available 04/05/2025 03:25:43 03/16/20 25 03/16/2025 [facility] 1999 panel - Serum or Plasm a protein [mass/volume ] in serum or plasma 6.3 g/dL low: 6.4g/d Lhigh: 8.9g/d L low Not Available Not Available 04/05/2025 03:25:43 03/16/20 25 03/16/2025 [facility] 1999 panel - Serum or Plasm a albumin [mass/volume ] in serum or plasma by bromocresol green (bcg) dye binding method 4.4 g/dL low: 3.5g/d Lhigh: 5.7g/d L Not Available Not Available 04/05/2025 03:25:43 03/16/20 25 03/16/2025 [facility] 2000 panel - Serum or Plasm a calcium [mass/volume ] in serum or plasma 9.1 mg/dL low: 8.6mg/ dLhigh : 10.3mg /dL Not Available Not Available 04/05/2025 03:25:43 03/16/20 25 03/16/2025 Compr ehens florin metab olic 2000 panel - Serum or Plasm a anion gap in serum or plasma by calculated.4 ions 8.8 text: 7.0 - 15.0 mEq/L Not Available Not Available 04/05/2025 03:25:43 03/16/20 25 03/16/2025 Compr ehens florin metab olic 2000 panel - Serum or Plasm a globulin [mass/volume ] in serum by calculation 1.9 g/dL low: 2g/dLh igh: 3.5g/d L low Not Available Not Available 04/05/2025 03:25:43 03/16/20 25 03/16/2025 Compr ehens florin metab olic 2000 panel - Serum or Plasm a eGFR 59 text: >60 mL/min /1.73m 2 low This eGFR is calcu lated using 2020 CKD-E PI Creat inine equat ion witho ut race modif ier based on the NKF-A SN task force recom menda tions Equat ion: eGFR= 142*m in(SC r/k,1 )a*ma x(SCr /k,1) -1.20 0*0.9 938Ag e*1.0 12 (if femal e), where SCr is serum creat inine , k is 0.7 for femal es and 0.9 for males , and a is -0.24 1 for femal es and -0.30 2 for males Not Available Not Available 04/05/2025 03:25:43 03/16/20 25 03/16/2025 Compr ehens florin metab olic 1999 panel - Serum or Plasm a Unknown Analyte RELEAS E TO PATIEN T->IMM EDIATE IS THE PATIEN T REQUIR ED TO BE FASTIN G FOR 8 HOURS? ->NO Not Available Not Available 03:25:43 03/16/20 25 03/16/2025 Compr ehens florin metab olic 2000 panel - Serum or Plasm a interpretati on and review of laboratory results ABNORM AL Not Available Not Available 03:25:43 01/25/20 24 01/25/2024 CT, chest , w/o contr ast No observ ation record ed. [facility] [address], [place], [address], 02/01/2024 19:39:30 03/09/20 24 03/09/2024 elect william sainzgr am No observ ation record ed. [facility], [facility] [address], [place], [address], 06/06/2024 18:18:46 03/11/20 24 03/10/2024 MAMMO , caine yue, digit al, bilat eral No observ ation record ed. [facility] ([facility]amm[facility]) [address], [place], [address], 06/06/2024 18:18:46 09/05/20 24 09/05/2024 US, duple x, carot id arter y No observ ation record ed. [facility], [facility] [address], [place], [address], 04/05/2025 19:20:27 09/30/19 25 09/29/2024 CT, abdom en + pelvi s, w/wo contr ast No observ ation record ed. [facility] [address], [place], [address], 04/05/2025 19:20:27 11/19/19 25 10/27/2024 US, duple x, carot id arter y No observ ation record ed. [facility], [facility] [address], [place], [address], 04/05/2025 19:20:27 02/10/20 25 use echoc ardio gram . [facility] [address] [address] Orderi ng Provid er: ZACKARY Pettitca rdiogr aphy Report Pat.Na me: VEDA GUNN Pat.ID : [id number] e: 025 Refer. MD: [id number] JORDY LUZ EWDPRO V EWDPRO V Exam Time: 1:56:0 0 PM Study Type:E CHO WITH CARDIA C DOPPLE R COMP Height : 61 in Weight : 181 lb BSA: 1.81 m2 Age: [birth year],[id number]Y Sex: F BP: 144/77 HR: 63 bpm Sonogr phr: Casandra Altman Pat. Stat.: Outpat ient Reason for Study: S/P TAVR Proced ures: 2D, M-mode , Dopple r, Color Flow, The study qualit y is techni laverne adequa te. Race: W ++++++ ++++++ ++++++ ++++++ ++++++ ++++++ SUMMAR Y: ++++++ ++++++ ++++++ ++++++ ++++++ ++++++ Left ventri rica is normal in size and systol ic functi on Estima olesya EF of 55-60% Mild LVH Right ventri rica is normal in size and systol ic functi on Well functi oning TAVR Normal estima olesya pulmon brittany pressu res. ++++++ ++++++ ++++++ ++++++ ++++++ ++++++ FINDIN GS: ++++++ ++++++ ++++++ ++++++ ++++++ ++++++ LV: The left ventri cular size is normal . The left ventri cular systol ic functi on is normal . Estima olesya left ventri cular ejecti on fracti on is 55-60% . Mild concen tric left ventri cular hypert rophy. Left ventri cular diasto lic functi on is abnorm al (grade 1 - impair ed relaxa tion). WM: Wall motion appear s normal in all segmen ts. RV: The right ventri cular size is normal . Right ventri cular systol ic functi on is normal . IVS: No eviden ce of ventri cular septal defect . LA: The left atrial size is normal . The left atrial volume is normal ( less than 34 ml/M2) . RA: Right atrial size is normal . IAS: Atrial septum appear s intact . DILIA: No eviden ce of perica rdial effusi on. AO: Normal aortic root. PA: Estima olesya right atrial pressu re of 3 mmHg. SVn: Inferi or vena cava is normal . AV: The peak veloci ty across the aortic valve measur es 3.08m/ sec with a peak gradie nt of 49.1mm Hg and a mean gradie nt of 23.8mm Hg. The calcul ated aortic valve area is 1.71cm 2. Aortic valve prosth esis visual ized. No eviden ce of dilia-p rosthe tic aortic valve regurg itatio n. No eviden ce of centra l prosth etic aortic valve regurg itatio n. MV: Trace mitral regurg itatio n. No eviden ce of mitral valve stenos is. PV: No eviden ce of pulmon ic valve stenos is. No eviden ce of pulmon ic regurg itatio n. TV: A trace of tricus pid regurg itatio n. Right ventri cular systol ic pressu re is <20 mmHg. No eviden ce of tricus pid valve stenos is. ++++++ ++++++ ++++++ ++++++ ++++++ ++++++ MEASUR EMENTS : ++++++ ++++++ ++++++ ++++++ ++++++ ++++++ DOPPLE R LVOT LVOTpk PG 13.2 mmHg LVOT SV 220 ml LVOT TVI 48 cm PSV 182 cm/s LVOTmn PG 7.6 mmHg AV Forwar d Flow AV TVI 77.1 cm AV pkPG 49 mmHg AV pkVel 350 cm/s (100-1 70)* Area (TVI) 2.86 cm2 (3-5)* AV mnPG 23.8 mmHg Area (Adrien) 2.39 cm2 (3-5)* MV Forwar d Flow MV pkE 82 cm/s (60-13 0) MV pkA 99 cm/s PV Forwar d Flow PV pkVel 87 cm/s (60-90 )+ PV AC 110 msec PV pkPG 3 mmHg TV Regurg Flow TV pkPG 16.8 mmHg TV pkVel 205 cm/s (30-70 )* TV Forwar d Flow TV pkE 40 cm/s Lat E' Lat e 9.21 cm/s Lat E/E' Lat E/e 8.9 Med E' Med e 8.82 cm/s Med E/E' Med E/e 9.3 AV Antegr chicho Flow AV AC/ET 0.21 Ratio of LVOT M 0.52 AC 68 millis econd Ratio of LVOT V 0.622 AV ET 327 millis econd Left Atrium CO 2.6 l/min CO 0.6 l/min Left Atrial Eje 54.7 % Left Atrial Eje 23 % Major Ponca (End 4.3 cm Major Ponca (End 4.7 cm Left Atrial ED 19.8 ml/m2 Left Atrial ED 17.6 ml/m2 Major Ponca (End 5.4 cm Major Ponca (End 5.2 cm Left Atrial ES 43.7 ml/m2 Left Atrial ES 22.9 ml/m2 Global Longit ud 24.5 % Global Longit ud 12.8 % HR 59 bpm HR 58 bpm SV 23.9 ml/m2 SV 5.2 ml/m2 LA Biplan e CO 1.4 l/min Left Atrial ES 32.3 ml/m2 Left Atrial Eje 39.7 % Global Longit ud 18.7 % Major Ponca (End 4.7 cm HR 59 bpm Left Atrial ED 19.5 ml/m2 SV 12.8 ml/m2 Major Ponca (End 5.4 cm Left Ventri rica Left Ventri cula 193 mmHg SV 32.5 ml/m2 MV Pk Adrien to LV 9.09 CO 4.2 l/min CO 3.5 l/min LVEF 51.8 % LVEF 53.3 % Left Ventri rica 8.7 cm Left Ventri rica 8.1 cm LVEDV 76.5 ml/m2 LVEDV 61 ml/m2 Left Ventri rica 7.2 cm Left Ventri rica 6.8 cm LVESV 36.9 ml/m2 LVESV 28.5 ml/m2 Global Longit ud -18.9 % Global Longit ud -19.2 % HR 58 bpm HR 59 bpm LV Mass 68.6 g/m2 LV Mass 44.9 g/m2 SV 39.6 ml/m2 LV Biplan e CO 4 l/min LVESV 33.3 ml/m2 LVEF 53.1 % Global Longit ud -19.1 % Left Ventri rica 8.7 cm HR 59 bpm LVEDV 71 ml/m2 LV Mass 56.1 g/m2 Left Ventri rica 7.2 cm SV 37.7 ml/m2 LV Tripla ne Global Longit ud -19 % MV Antegr chicho Flow Mitral Valve A 1.21 MV E Decel time 283 millis econd MV E/A 0.83 PV Antegr chicho Flow Accele ration Sl 698 cm/s2 Right Atrium CO 2.1 l/min Volume (Systo le 34.5 ml/m2 Cardia c ejecti o 59.1 % Global Longit ud 39.5 % Major Ponca (End 3.2 cm HR 58 bpm Volume (Diast ol 14.1 ml/m2 SV 20.4 ml/m2 Major Ponca (End 5 cm Right Ventri rica Right Ventri cul 10.7 centim eters per second Right Ventri cul 28.5 % Right Ventri cul 13.6 square centim eters per square meter Global Longit ud -12.1 % Major Ponca (End 8.2 cm Global Longit ud -16.7 % Major Ponca (End 7.3 cm Global Longit ud -6.1 % Right Ventri cul 9.8 square centim eters per square meter HR 58 bpm 2D LVPW LVPWd 1.07 cm Left Atrium LA a-p 3.62 cm (2.8-3 .4)* Major Ponca (Sys 5.33 cm End Diasto lic A 0.82 Diamet er (Systo 2 cm/m2 Ratios IVS Ventri cular Septum IVSd 1.04 cm Left Ventri rica LVIDd 4.22 cm (4.3-5 .1)* LV Mass 149 gram LVIDs 2.95 cm (2-4) Left Ventri rica 0.51 Aorta AO Dd 1.64 cm LA Single Plane Left Atrium Are 15.8 cm2 LVOT Cardio vascul ar 4.6 cm2 Cardio vascul ar 2.42 cm Right Atrium Major Ponca (Sys 4.03 cm RA Single Plane Right Atrium Ar 12 cm2 Volume (Systo le 15.9 ml/m2 Right Ventri rica Major Ponca (Maria Dolores 2.36 cm RVIDd 3.78 cm MMODE Tricus pid Valve Tricus pid annul 2.36 cm 2024 04:04 PM Zackary Spence M.D. [facility] [address] [facility], [place], [address], 04/05/2025 19:20:27 04/05/20 25 04/06/2025 US, pito x, charbel id arter y No observ ation record ed. [address], [facility] [address], [place], [address], 04/06/2025 11:19:58 04/05/20 25 04/06/2025 elect rocar diogr am No observ ation record ed. [address], [facility] [address], [place], [address], 04/06/2025 09:14:33 04/06/20 25 04/05/2025 elect rocar diogr am No observ ation record ed. [address], [facility] [address], [place], [address], 04/06/2025 09:13:49 Result Notes None recorded. Problems Name Problem SNOMED Code Status Onset Date Resolution Date Notes Provider Name and Address Organization Details Recorded Time Hyperlip idemia 39305878 Completed 06/11/2020 Jocelyn Dawkins MD [address], [place], [address], [place] [facility] 0 18:54:55 Hypothyr oidism 90275179 Active Almita rudolph [facility] 6 11:34:54 Nicotine dependen ce 41661189 [facility] 11:[facility]02 Noncompl iance with treatmen t 5392244 [facility] 11:[facility]13 [place] ht [id number] Completed 09/19/2021 Jocelyn Dawkins MD [address], [place], [address], [facility] 2 13:16:41 Cobalami n deficien cy 640743632 [facility] 6 11:[facility]28 Vitamin D deficien cy 19463988 [facility] 6 11:35:36 History of malignan t neoplasm of colon 835081248 Active 2015 Jocelyn Dawkins MD [address], [place], [address], [facility] [facility] 6 15:02:36 Atherosc lerosis of aorta 74525498 Active 2016 on CXR 04/27/17 Jocelyn Dawkins MD [address], [place], [address], [facility] 7 19:20:38 Benign hyperten jah 49569618 Active 2016 Jocelyn Dawkins MD [address], [place], [address], [facility] 7 13:47:31 Body mass index 30+ - obesity 072714744 Completed 201806/19/2021 Jocelyn Dawkins MD [address], [place], [address], [facility] 5 19:31:13 Gastroes ophageal reflux disease without esophagi tis 449029879 Active 2018 Jocelyn Dawkins MD [address], [place], [address], [facility] 9 14:37:56 Solitary nodule of lung 836180728 Active 2018 Jocelyn Dawkins MD [address], [place], [address], [facility] 9 21:12:51 Bilatera l knee pain Completed 201806/09/2019 Jocelyn Dawkins MD [address], [place], [address], [facility] 9 17:27:34 Osteoart hritis of knee 871672653 Active 2018 Jocelyn Dawkins MD [address], [place], [address], [facility] 9 17:27:31 Peripher al vascular disease 946669952 Active 2018 MILD on CARLOS A 06/08/19 Jocelyn Dawkins MD [address], [place], [address], [facility] 9 20:55:57 Mixed hyperlip idemia 230836612 Active 2019 Jcoelyn Dawkins MD [address], [place], [address], [facility] 0 18:57:53 History of cerebrov ascular accident 765500753 Active 2019 Jocelyn Dawkins MD [address], [place], [address], [facility] 0 19:00:54 Osteoart hritis 237293078 Active 2019 Jocelyn Dawkins MD [address], [place], [address], [facility] 0 19:03:05 Swelling of upper limb 457052665 Completed 201909/19/2021 Jocelyn Dawkins MD [address], [place], [address], [facility] 2 13:16:36 Chronic constipa tion 622963430 Active 2019 Jocelyn Dawkins MD [address], [place], [address], [facility] 0 18:43:16 Carotid artery stenosis 81162918 Active 2019 Jocelyn Dawkins MD [address], [place], [address], [facility] 0 19:47:35 Aortic valve stenosis 36019001 Active 2019 nonrheum atic S/P TAVR 12/10/20 Jocelyn Dawkins MD [address], [place], [address], [facility] 1 17:55:48 Left hemipare sis 602965607 Active 2019 Jocelyn Dawkins MD [address], [place], [address], [facility] 0 17:40:30 Menopaus e Active 2019 Jocelyn Dawkins MD [address], [place], [address], [facility] 0 17:43:31 Increase d frequenc y of urinatio n 674227245 Completed 202009/19/2021 Jocelyn Dawkins MD [address], [place], [address], [facility] 2 13:17:11 Snoring 40703440 Active 2020 Jocelyn Dawkins MD [address], [place], [address], [facility] 1 13:14:40 Overacti ve urinary bladder 481539881 Active 2020 Jocelyn Dawkins MD [address], [place], [address], [facility] 1 13:14:50 Non-alco holic fatty liver 408596124 Active 2020 Jocelyn Dawkins MD [address], [place], [address], [facility] 1 15:03:24 Fatigue 48572844 Active 2020 Jocelyn Dawkins MD [address], [place], [address], [facility] 1 14:02:11 Mixed urinary incontin ence 165746046 Active 2021 Jocelyn Dawkins MD [address], [place], [address], [facility] 2 17:35:49 Pain of left ankle joint 35428568015 431254 Active 2021 Jocelyn Dawkins MD [address], [place], [address], [facility] 2 17:39:07 Allergic rhinitis caused by pollen 37427660 Active 2021 Jocelyn Dawkins MD [address], [place], [address], [facility] 2 17:39:27 History of SARS-CoV -2 [id number] 5748048 Active 2021 Jocelyn Dawkins MD [address], [place], [address], [facility] 2 17:48:19 Anemia 805243413 Active 2021 Jocelyn Dawkins MD [address], [place], [address], [facility] 2 10:02:08 Iron deficien cy 41355649 Active 2021 Jocelyn Dawkins MD [address], [place], [address], [facility] 2 17:09:37 Sleep apnea 87283426 Active 2021 on sleep study 08/06/22 Jocelyn Dawkins MD [address], [place], [address], [facility] 2 16:13:43 Obstruct florin sleep apnea of adult 25050244929 03 Active 2022 Jocelyn Dawkins MD [address], [place], [address], [facility] 3 18:31:40 Hypocalc emia 9764143 Active 2022 Jocelyn Dawkins MD [address], [place], [address], [facility] 3 19:15:47 Long-ter m drug therapy Active 2022 Jocelyn Dawkins MD [address], [place], [address], [facility] 3 16:15:52 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 03409966616 9101 Active 2023 Jocelyn Dawkins MD [address], [place], [address], [facility] 4 15:42:12 CT of chest abnormal 46618702871 063633 Active 2023 Jocelyn Dawkins MD [address], [place], [address], [facility] 4 22:54:13 Fibrosis of lung 57642288 Active 2023 Jocelyn Dawkins MD [address], [place], [address], [facility] 4 18:21:10 Contract ure of joint of toe 428636929 Active 2023 Jocelyn Dawkins MD [address], [place], [address], [facility] 4 18:29:36 Body mass index 30+ - obesity 480346743 Active 2024 Jocelyn Dawkins MD [address], [place], [address], [facility] 19:31:12 Mixed anxiety and depressi ve disorder 635106444 Active 2024 Jocelyn Dawkins MD [address], [place], [address], [facility] 19:34:55 Problem Notes Documentation Provider Name and Address Organization Details Recorded Time Apprentice Consult Note : Patient Name: VEDA SORIA Date of : 1950 Med Rec #: [id number] Date of Service: 08/05/2024 Disch Date: 08/05/2024 Reason for Visit: Aortic Valve Stenosis, Hypertension, Lipids, and Consult History of Present Illness: Veda Soria is a 74-year-old female with a past medical history of TAVR (2020), CVA (2019), hypertension and hyperlipidemia here today for initial evaluation of TAVR. Patient with hx fo CVA in 2019. During that workup found to have severe aortic stenosis and had TAVR done in 2020. Was followed by Dr. Montano at [facility], but since he is moving she decided to get a portable machine sander closer to home and is transferring to my practice. No new chest pain, chest pressure/discomfort, dyspnea, or palpitations. Tolerating medications well. Feels very fatigued, has known mild TEJAS being medically managed. Does no exercise. Labs: No results found for: CHOL, HDL, LDL, TRI, CR Data Reviewed: C (11/2020) - no CAD TAVR () - 23mm Murtaza valve Echo (11/2023) - EF 58%, normal ventricular size and function, mild perivalvular AI, MPG 23 Recommendations and Plan: S/p TAVR - doing well, no clear symptoms. Heavily encouraged exercise. Echo prior to next visit CVA - continue ASA, statin HTN - well controlled, no changes needed. Follow up in 6 months, sooner if needed Medications: Current Outpatient Medications: atorvastatin (LIPITOR) 40 MG tablet, Take 1 tablet (40 mg total) by mouth nightly at bedtime., Disp: , Rfl: buPROPion (WELLBUTRIN) 75 MG tablet, Take 1 tablet (75 mg total) by mouth every morning., Disp: , Rfl: fluticasone propionate (FLONASE) 50 MCG/ACT nasal spray, Dixie 1 spray every day by intranasal route., Disp: , Rfl: iron polysacch hubne-W82-BK (POLY-IRON 150 FORTE) 150-0.025-1 MG Cap capsule, Take 1 capsule by mouth every other day., Disp: , Rfl: levothyroxine (SYNTHROID) 88 MCG tablet, Take 1 tablet (88 mcg total) by mouth every morning., Disp: , Rfl: losartan (COZAAR) 50 MG tablet, Take 1 tablet (50 mg total) by mouth daily., Disp: , Rfl: metFORMIN (GLUCOPHAGE) 500 MG tablet, Take 1 tablet twice a day by oral route for 90 days., Disp: , Rfl: omeprazole (PRILOSEC) 40 MG capsule, Take 1 capsule (40 mg total) by mouth daily., Disp: , Rfl: vitamin D2, ergocalciferol, (DRISDOL) 1.25 mg capsule, Take 1 capsule (50,000 Units total) by mouth., Disp: , Rfl: senna-docusate (SENOKOT-S) 8.6-50 MG tablet, Take 1 tablet by mouth daily., Disp: , Rfl: Review of patient's allergies indicates: Allergen Reactions Epinephrine Unknown and Other (see comment) Severe Shakiness/tremors Cephalexin Rash Codeine Unknown and Rash Erythromycin Unknown and Rash Penicillins Hives and Swelling Sulfa Antibiotics Hives and Unknown Doxycycline Nausea Only Lisinopril Cough Simvastatin Joint Pain and Other (see comment) Past Medical History: Diagnosis Date Anemia, unspecified Aortic stenosis Cancer ([facility] HHS/HCC) colon cancer Cataracts, bilateral CVA (cerebral vascular accident) ([facility]) GERD (gastroesophageal reflux disease) Helen's disease TEJAS (obstructive sleep apnea) Past Surgical History: Procedure Laterality Date CARDIAC VALVE SURGERY TARV RT/LT HEART CATHETERS SCREENING COLONOSCOPY TOTAL ABDOM HYSTERECTOMY TRANSCATH STENT INIT VESSEL,PERCUT Social History Tobacco Use Smoking status: Every Day Types: Cigarettes Smokeless tobacco: Never Substance Use Topics Alcohol use: Not Currently Drug use: Never No family history on file. No family status information on file. Review of Systems Constitutional: Positive for fatigue. Negative for recent unintentional weight gain and recent unintentional weight loss. HENT: Negative for new or significant hearing loss. Eyes: Negative for blurred vision and double vision. Respiratory: Negative for cough, new or significant shortness of breath and snoring. Cardiovascular: See HPI. Negative for chest pain and palpitations. Gastrointestinal: Negative for blood in stool and melena. Genitourinary: Negative for dysuria. Musculoskeletal: Negative for myalgias and new or worsening joint stiffness/pain. Skin: Negative for rash. Neurological: Negative for tingling/numbness and focal weakness. Endo/Heme/Allergies: Negative for new or significant bruising/bleeding and polydipsia. Psychiatric/Behavioral: Negative for depression and new or significant memory loss. Vitals: 08/05/24 1427 BP: 124/82 Pulse: 77 Weight: 82.1 kg (181 lb) Height: 1.549 m (5' 1) Body mass index is 34.2 kg/mA?. Cardiac Exam Rate/Rhythm: Normal rate and regular rhythm. PMI: PMI is not displaced. Pulses: Normal pulses. Dorsalis pedis pulses are 2+ on the right side and 2+ on the left side. Heart Sounds: Normal S1 sounds. Normal S2 sounds. No gallop present. No S3. No S4. Murmurs: Murmur present Edema left: 0. Edema Right: 0. Physical Exam Constitutional: No distress. Healthy Appearance. HENT: Oropharynx clear. Eyes: Pupils equal, round, and reactive to light. Conjunctivae normal. Neck: Neck supple. No JVD. Abdomen: Abdomen soft. Bowel sounds normal. No distension. No tenderness. Pulmonary: Effort normal. Breath sounds normal. Skin: No rash. No cyanosis. No clubbing. No xanthoma. Musculoskeletal: No kyphosis. Normal ROM. Neurological: Alert. Oriented x 3. Appropriate mood and affect. Normal motor skills. Normal gait. Comments: Diagnoses/Impression: 1. S/P TAVR (transcatheter aortic valve replacement) ELECTROCARDIOGRAM USE ECHOCARDIOGRAM 2. Benign hypertension 3. Cerebrovascular accident (CVA), unspecified mechanism ([facility]) Referring Provider: No ref. provider found PCP: JOCELYN DAWKINS MD Signed by: ZACKARY SPENCE 08/09/2024 11:29 PM Jocelyn Dawkins MD [address], [place], [address], [facility] 09/05/2024 18:18:08 Apprentice Consult Note : Patient Name: VEDA SORIA Date of : 1950 Med Rec #: [id number] Date of Service: 02/15/2025 Disch Date: 02/15/2025 Reason for Visit: Hypertension (Follow up), Aortic Valve Stenosis, and Cva History of Present Illness: Veda Soria is a 74-year-old female with a past medical history of TAVR (2020), CVA (2019), hypertension and hyperlipidemia here today for initial evaluation of TAVR. Patient with hx fo CVA in 2019. During that workup found to have severe aortic stenosis and had TAVR done in 2020. Was followed by Dr. Montano at [facility], but since he is moving she decided to get a portable machine sander closer to home and is transferring to my practice. No new chest pain, chest pressure/discomfort, dyspnea, or palpitations. Tolerating medications well. Does no regular exercise. Labs: No results found for: CHOL, HDL, LDL, TRI, CR Data Reviewed: [facility] (11/2020) - no CAD TAVR () - 23mm Murtaza valve Echo (11/2023) - EF 58%, normal ventricular size and function, mild perivalvular AI, MPG 23 Echo (01/2025) - EF 55-60%, mild LVH, well functioning TAVR, MPG 24 Recommendations and Plan: S/p TAVR - doing well, no clear symptoms. Heavily encouraged exercise. Echo in 2025 CVA - continue ASA, statin HTN - well controlled, no changes needed. Follow up in 6 months, sooner if needed Medications: Current Outpatient Medications: atorvastatin (LIPITOR) 40 MG tablet, Take 1 tablet (40 mg total) by mouth nightly at bedtime., Disp: , Rfl: buPROPion (WELLBUTRIN) 75 MG tablet, Take 1 tablet (75 mg total) by mouth every morning., Disp: , Rfl: fluticasone propionate (FLONASE) 50 MCG/ACT nasal spray, Dixie 1 spray every day by intranasal route., Disp: , Rfl: iron polysacch atarv-P76-PI (POLY-IRON 150 FORTE) 150-0.025-1 MG Cap capsule, Take 1 capsule by mouth every other day., Disp: , Rfl: levothyroxine (SYNTHROID) 88 MCG tablet, Take 1 tablet (88 mcg total) by mouth every morning., Disp: , Rfl: losartan (COZAAR) 50 MG tablet, Take 1 tablet (50 mg total) by mouth daily., Disp: , Rfl: metFORMIN (GLUCOPHAGE) 500 MG tablet, Take 1 tablet twice a day by oral route for 90 days., Disp: , Rfl: omeprazole (PRILOSEC) 40 MG capsule, Take 1 capsule (40 mg total) by mouth 2 (two) times a day., Disp: , Rfl: senna-docusate (SENOKOT-S) 8.6-50 MG tablet, Take 1 tablet by mouth daily., Disp: , Rfl: sucralfate (CARAFATE) 1 G tablet, TAKE 1 TABLET BY MOUTH TWICE DAILY OK TO CUT IN HALF OR CRUSH IF NEEDED, Disp: , Rfl: vitamin B-12 (CYANOCOBALAMIN) (CYANOCOBALAMIN) 1000 mcg tablet, Take 1 tablet (1,000 mcg total) by mouth daily., Disp: , Rfl: vitamin D2, ergocalciferol, (DRISDOL) 1.25 mg capsule, Take 1 capsule (50,000 Units total) by mouth., Disp: , Rfl: Review of patient's allergies indicates: Allergen Reactions Epinephrine Unknown and Other (see comment) Severe Shakiness/tremors Cephalexin Rash Codeine Unknown and Rash Erythromycin Unknown and Rash Penicillins Hives and Swelling Sulfa Antibiotics Hives and Unknown Doxycycline Nausea Only Lisinopril Cough Simvastatin Joint Pain and Other (see comment) Past Medical History: Diagnosis Date Anemia, unspecified Aortic stenosis Cancer (CMS/HCC HHS/HCC) colon cancer Cataracts, bilateral CVA (cerebral vascular accident) (CMS/HCC HHS/HCC) GERD (gastroesophageal reflux disease) Helen's disease TEJAS (obstructive sleep apnea) Past Surgical History: Procedure Laterality Date CARDIAC VALVE SURGERY TARV RT/LT HEART CATHETERS SCREENING COLONOSCOPY TOTAL ABDOM HYSTERECTOMY TRANSCATH STENT INIT VESSEL,PERCUT Social History Tobacco Use Smoking status: Every Day Types: Cigarettes Smokeless tobacco: Never Substance Use Topics Alcohol use: Not Currently Drug use: Never No family history on file. No family status information on file. Review of Systems Constitutional: Positive for fatigue. Negative for recent unintentional weight gain and recent unintentional weight loss. HENT: Negative for new or significant hearing loss. Eyes: Negative for blurred vision and double vision. Respiratory: Negative for cough, new or significant shortness of breath and snoring. Cardiovascular: See HPI. Negative for chest pain and palpitations. Gastrointestinal: Negative for blood in stool and melena. Genitourinary: Negative for dysuria. Musculoskeletal: Negative for myalgias and new or worsening joint stiffness/pain. Skin: Negative for rash. Neurological: Negative for tingling/numbness and focal weakness. Endo/Heme/Allergies: Negative for new or significant bruising/bleeding and polydipsia. Psychiatric/Behavioral: Negative for depression and new or significant memory loss. Vitals: 02/15/25 1327 BP: 126/62 Pulse: 68 Weight: 86.6 kg (191 lb) Height: 1.549 m (5' 1) Body mass index is 36.09 kg/mA?. Cardiac Exam Rate/Rhythm: Normal rate and regular rhythm. PMI: PMI is not displaced. Pulses: Normal pulses. Dorsalis pedis pulses are 2+ on the right side and 2+ on the left side. Heart Sounds: Normal S1 sounds. Normal S2 sounds. No gallop present. No S3. No S4. Murmurs: Murmur present Edema left: 0. Edema Right: 0. Physical Exam Constitutional: No distress. Healthy Appearance. HENT: Oropharynx clear. Eyes: Pupils equal, round, and reactive to light. Conjunctivae normal. Neck: Neck supple. No JVD. Abdomen: Abdomen soft. Bowel sounds normal. No distension. No tenderness. Pulmonary: Effort normal. Breath sounds normal. Skin: No rash. No cyanosis. No clubbing. No xanthoma. Musculoskeletal: No kyphosis. Normal ROM. Neurological: Alert. Oriented x 3. Appropriate mood and affect. Normal motor skills. Normal gait. Comments: Diagnoses/Impression: 1. S/P TAVR (transcatheter aortic valve replacement) 2. Benign hypertension 3. Cerebrovascular accident (CVA), unspecified mechanism ([facility]) Referring Provider: No ref. provider found PCP: JOCELYN DAWKINS MD Signed by: ZACKARY SPENCE 02/15/2025 4:52 PM Jocelyn Dawkins MD [address], [place], [address], [facility] 04/05/2025 19:20:28 Procedures Surgical History Date Name Laterality Status Provider Name and Address Organization Details Recorded Time 03/06/20 23 Colonoscopy completed Jocelyn Dawkins MD [address], [place], [address], [facility] 04/28/2023 19:24:59 12/11/19 21 percutaneous replacement of aortic valve using fluoroscopic guidance completed Jocelyn Dawkins MD [address], [place], [address], [facility] 12/17/2020 12:18:24 08/28/20 17 Colonoscopy completed Jocelyn Dawkins MD [address], [place], [address], [facility] 05/20/2018 13:34:01 08/20/20 17 Date of Last Mammogram completed [facility] 05/20/2018 12:02:09 10/17/19 12 Colonoscopy completed [facility] 02/21/2016 11:33:23 Partial Hysterectomy completed [facility] 02/21/2016 11:33:31 Oophorectomy completed [facility] 02/21/2016 11:33:37 Colostomy completed [facility] 02/21/2016 11:33:46 Imaging Results None recorded. Procedure Notes None recorded. Medical Equipment None Reported. Allergies Allergen ID Allergen Name Allergen Category Reaction Reaction Severity Criticality Documentation Date Start Date Code Code System Note Provider Name and Address Organization Details Recorded Time 74371 lisinopri l medicatio n cough Not available Not available 09/19/2021 27324 RxNorm Jocelyn Dawkins MD [address], [place], [address], [facility] 13:14:51 69313 doxycycli ne Not available nausea Not available low 12/17/2022 3640 RxNorm Jocelyn Dawkins MD [address], [place], [address], [place] [facility] 3 12:40:38 2035 codeine medicatio n Not available Not available Not available 02/21/2016 2670 [facility] 11:32:29 2036 epinephri ne medicatio n Not available Not available Not available 02/21/2016 3992 [facility] 6 11:32:36 2037 erythromy adrien medicatio n Not available Not available Not available 02/21/2016 4053 [facility] 6 11:32:42 2038 Product containin g penicilli n (product) medicatio n Not available Not available Not available 02/21/2016 29029 8001 [facility]ED [facility] 6 11:32:48 2039 Substance with sulfonami de structure and antibacte rial mechanism of action (substanc e) medicatio n Not available Not available Not available 02/21/2016 93083 8003 [facility]ED [facility] 6 11:32:57 2040 Zocor medicatio n Not available Not available Not available 02/21/2016 01911 3 [facility] 6 11:33:01 41237 cephalexi n medicatio n rash Not available high 12/30/20242020 2231 RxNorm Not Available anjana - External Data Service - prod 5 13:45:38 38787 simvastat in medicatio n arthralgi a (joint pain) Not available low 12/30/20242019 54017 RxNorm Not Available anjana - External Data Service - prod 5 13:45:38 38804 epinephri ne hydrochlo ride medicatio n other Not available high 02/22/20251977 362 RxNorm Wilma lucas/ ritesh rs Not Available anjana - External Data Service - prod 5 09:52:51 40622 pravastat in medicatio n arthralgi a (joint pain) Not available low 02/22/20252024 18832 RxNorm Not Available anjana - External Data Service - prod 5 09:53:32 Medications Name Sig Start Date Stop Date Status Note LastModified by Organization Details LastModified Time Pravachol 40 mg tablet Take 1 tablet(s) every day by oral route. 11/22 completed Not Available Not Available Not Available losartan 50 mg tablet TAKE ONCE DAILY 2024 active Not Available Not Available Not Avai lable atorvastati n 40 mg tablet take one daily 2024 active Not Available Not Available Not Avai lable metformin 500 mg tablet Take 1 tablet twice a day by oral route for 90 days. 04/05 completed Not Available Not Available Not Available promethazin e-DM 6.25 mg-15 mg/5 mL oral syrup TAKE 2 & 1/2 (TWO & ONE-HALF) ML BY MOUTH 4 TIMES DAILY NEEDED FOR COUGH 12/19 completed Not Available Not Available Not Available oxybutynin chloride ER 15 mg tablet,exte nded release 24 hr Take 1 tablet by mouth once daily 03/09 completed Not Available Not Available Not Available doxycycline hyclate 100 mg capsule TAKE 1 CAPSULE BY MOUTH TWICE DAILY 04/05 completed Not Available Not Available Not Available atorvastati n 20 mg tablet TAKE 1 TABLET BY MOUTH ONCE DAILY 06/11 completed Not Available Not Available Not Available Klor-Con 10 mEq tablet,exte nded release Take 1 tablet every day by oral route. 12/20 completed Not Available Not Available Not Available clindamycin HCl 300 mg capsule TAKE 2 CAPSULES ONE HOUR BEFORE AND 1 CAPSULE 6 HOURS AFTER 09/19 completed Not Available Not Available Not Available oxybutynin chloride ER 10 mg tablet,exte nded release 24 hr Take 1 tablet by mouth once daily 2024 active Not Available Not Available Not Avai lable azithromyci n 250 mg tablet TAKE 2 TABLETS (500 MG) BY ORAL ROUTE ONCE DAILY FOR 1 DAY THEN 1 TABLET (250 MG) BY ORAL ROUTE ONCE DAILY FOR 4 DAYS 09/05 completed Not Available Not Available Not Available ofloxacin 0.3 % eye drops INSTILL 1 DROP TOPICALLY INTO EACH EYE 4 TIMES DAILY FOR 10 DAYS 04/25 completed Not Available Not Available Not Available meloxicam 15 mg tablet TAKE 1 TABLET BY MOUTH ONCE DAILY 06/11 completed Not Available Not Available Not Available sucralfate 1 gram tablet TAKE 1 TABLET BY MOUTH TWICE DAILY. OK TO CUT IN HALF OR CURSH IF NEEDED active Not Available Not Available No t Available ondansetron HCl 4 mg tablet Take 1 tablet 3 times a day by oral route as needed. 03/09 completed Not Available Not Available Not Available prednisone 20 mg tablet TAKE 2 TABLETS BY MOUTH ONCE DAILY FOR 5 DAYS 04/05 completed Not Available Not Available Not Available sennosides 8.6 mg-docusate sodium 50 mg tablet Take 1 tablet every day by oral route at bedtime. 2024 active Not Available Not Available Not Avai lable Ferrex 150 mg iron capsule Take 1 capsule every other day by oral route. 03/09 completed Not Available Not Available Not Available clindamycin HCl 150 mg capsule TAKE FOUR CAPSULES BY MOUTH ONE HOUR BEFORE APPOINTME NT 03/05 completed Not Available Not Available Not Available cyanocobala min (vit B-12) 1,000 mcg tablet TAKE 1 TABLET BY MOUTH ONCE DAILY active Not Available Not Available No t Available Zyrtec 10 mg tablet Take 1 tablet every day by oral route at bedtime. 12/19 completed Not Available Not Available Not Available clopidogrel 75 mg tablet Take 1 tablet every day by oral route. 12/19 completed Not Available Not Available Not Available Tamiflu 75 mg capsule Take 1 capsule twice a day by oral route. 02/09 completed Not Available Not Available Not Available omeprazole 40 mg capsule,del ayed release TAKE 1 CAPSULE BY MOUTH ONCE DAILY FOR 90 DAYS 2024 active Not Available Not Available Not Avai lable levothyroxi ne 75 mcg tablet TAKE 1 TABLET BY MOUTH ONCE DAILY IN THE MORNING 06/12 completed Not Available Not Available Not Available ketorolac 0.5 % eye drops INSTILL 1 DROP THREE TIMES DAILY STARTING 2 DAYS PRIOR TO SURGERY AND CONTINUIN G FOR 1 WEEK AFTER 09/30 completed Not Available Not Available Not Available meloxicam 7.5 mg tablet TAKE 1 TABLET BY MOUTH ONCE DAILY 12/17 completed Not Available Not Available Not Available levothyroxi ne 100 mcg tablet TAKE ONE TABLET BY MOUTH ONCE DAILY IN THE MORNING 10/16 completed Not Available Not Available Not Available levothyroxi ne 88 mcg tablet TAKE ONCE in morning 2024 active Not Available Not Available Not Avai lable MagOx 400 mg (241.3 mg magnesium) tablet TAKE 2 TABLETS BY MOUTH TWICE DAILY FOR 30 DAYS 06/11 completed Not Available Not Available Not Available prednisolon e acetate 1 % eye drops,suspe nsion INSTILL 1 DROP THREE TIMES DAILY STARTING AFTER SURGERY AND CONTINUIN G FOR 3 WEEKS AFTER 10/08 completed Not Available Not Available Not Available Euthyrox 125 mcg tablet TAKE 1 TABLET BY MOUTH BEFORE BREAKFAST 03/29 completed Not Available Not Available Not Available calcium 500 mg (as calcium carbonate 1,250 mg) tablet Take 1 tablet every day by oral route. 2024 active Not Available Not Available Not Avai lable aspirin 325 mg tablet,facundo yed release Take 1 tablet every day by oral route. 2024 active Not Available Not Available Not Avai lable Euthyrox 112 mcg tablet TAKE 1 TABLET BY MOUTH ONCE DAILY IN THE MORNING 06/13 completed Not Available Not Available Not Available Questran 4 gram powder for susp in a packet Take 1 packet 3 times a day by oral route. 03/09 completed Not Available Not Available Not Available amitriptyli ne 10 mg tablet TAKE 1 TABLET BY MOUTH EVERY DAY AT BEDTIME NEEDED FOR INSOMNIA 12/17 completed Not Available Not Available Not Available baclofen 10 mg tablet Take 1 tablet twice a day by oral route. 07/23 completed Not Available Not Available Not Available benzonatate 100 mg capsule TAKE 1 CAPSULE BY MOUTH THREE TIMES DAILY 01/12 completed Not Available Not Available Not Available Lasix 20 mg tablet Take 1 tablet every day by oral route. 12/20 completed Not Available Not Available Not Available pantoprazol e 40 mg tablet,facundo yed release 1 cap PO QAM 05/09 completed Not Available Not Available Not Available Cipro 500 mg tablet Take 1 tablet every 12 hours by oral route. 09/11 completed Not Available Not Available Not Available tobramycin 0.3 % eye drops INSTILL 1 DROP INTO EACH EYE 4 TIMES DAILY FOR 10 DAYS 04/27 completed Not Available Not Available Not Available calcium 200 mg (as calcium carbonate 500 mg) chewable tablet CHEW AND SWALLOW 1 TABLET BY MOUTH ONCE DAILY 03/05 completed Not Available Not Available Not Available losartan 25 mg tablet Take 1 tablet by mouth once daily 12/19 completed Not Available Not Available Not Available bupropion HCl 75 mg tablet take once daily 04/05 completed Not Available Not Available Not Available oxybutynin chloride ER 5 mg tablet,exte nded release 24 hr TAKE 1 TABLET BY MOUTH ONCE DAILY IN THE MORNING 09/19 completed Not Available Not Available Not Available omeprazole 20 mg capsule,del ayed release TAKE TWO CAPSULES BY MOUTH ONCE DAILY 11/22 completed Not Available Not Available Not Available etodolac 400 mg tablet Take 1 tablet twice a day by oral route. 07/23 completed Not Available Not Available Not Available lisinopril 5 mg tablet Take 1 tablet by mouth once daily 09/19 completed Not Available Not Available Not Available mupirocin 2 % topical ointment 1 applicati on HQS 10/15 completed Not Available Not Available Not Available telmisartan 20 mg tablet take one tablet by mouth daily 05/20 completed Not Available Not Available Not Available gabapentin 100 mg capsule TAKE 1 CAPSULE BY MOUTH THREE TIMES DAILY 12/17 completed Not Available Not Available Not Available ergocalcife rol (vitamin D2) 1,250 mcg (50,000 unit) capsule TAKE 1 CAPSULE BY MOUTH ONCE EVERY MONTH 2024 active Not Available Not Available Not Avai lable Aspir-81 mg tablet,facundo yed release Take 1 tablet every day by oral route. 03/12 completed Not Available Not Available Not Available levofloxaci n 500 mg tablet TAKE 1 TABLET BY MOUTH EVERY 24 HOURS 01/12 completed Not Available Not Available Not Available methylpredn isolone 4 mg tablets in a dose pack TAKE BY MOUTH DIRECTED ON INSIDE OF PACKAGE 12/19 completed Not Available Not Available Not Available fluticasone propionate 50 mcg/actuati on nasal spray,suspe nsion Dixie 1 spray every day by intranasa l route. 2023 active Not Available Not Available Not Avai lable metformin ER 500 mg tablet,exte nded release 24 hr Take 1 tablet by mouth twice daily 2024 active Not Available Not Available Not Avai lable sertraline 50 mg tablet Take 1 tablet every day by oral route at bedtime. 07/23 completed Not Available Not Available Not Available Poly-Iron 150 Forte 150 mg-25 mcg-1 mg capsule TAKE 1 CAPSULE BY MOUTH EVERY OTHER DAY 2024 active Not Available Not Available Not Avai lable Tylenol Extra Strength 500 mg tablet Take 1 tablet every 8 hours by oral route around the clock for 90 days. 2020 active Not Available Not Available Not Avai lable Wellbutrin XL 150 mg 24 hr tablet, extended release Take 1 tablet every day by oral route in the morning. 2024 active Not Available Not Available Not Avai lable Mucinex DM 30 mg-600 mg tablet,exte nded release 12 hr Take 1 tablet every 12 hours by oral route. 09/05 completed Not Available Not Available Not Available Amitiza 24 mcg capsule Take 1 capsule twice a day by oral route. 09/10 completed Not Available Not Available Not Available Nasal Dixie (sodium chloride) 0.65 % aerosol USE 2 SPRAY(S) IN EACH NOSTRIL SIX TIMES DAILY 12/17 completed Not Available Not Available Not Available diclofenac 1 % topical gel APPLY 4 GRAMS PER DOSE 4 TIMES DAILY NEEDED 12/19 completed Not Available Not Available Not Available Chantix Starting Month Box 0.5 mg (11)-1 mg (42) tablets in dose pack Take 1 startr pk by oral route as directed. 03/19 completed Not Available Not Available Not Available Myrbetriq 25 mg tablet,exte nded release Take 1 tablet every day by oral route. 07/02 completed Not Available Not Available Not Available Movantik 25 mg tablet Take 1 tablet every day by oral route. 06/26 completed Not Available Not Available Not Available Relistor 150 mg tablet 06/19 completed Not Available Not Available Not Available Linzess 72 mcg capsule active Not Available Not Available Not Available Gemtesa 75 mg tablet Take 1 tablet every day by oral route. 10/08 completed Not Available Not Available Not Available Vitals Date Recorded Body height Body mass index (BMI) Body weight Body temperature Respiratory rate Heart rate Systolic And Diastolic Provider Name and Address Organization Details Last Updated DateTime 4 157.48 cm 28.9 kg/m2 74937.5 9 g 97.7 [degF] 18 /min 71 /min 136/70 mm[Hg] [facility] Date Recorded Body height Body mass index (BMI) Body weight Body temperature Respiratory rate Heart rate Systolic And Diastolic Provider Name and Address Organization Details Last Updated DateTime 4 157.48 cm 30.9 kg/m2 26405.1 1 g 97.8 [degF] 18 /min 78 /min 121/66 mm[Hg] Anel Cool [facility] 4 19:12:14 Date Recorded Systolic And Diastolic Provider Name and Address Organization Details Last Updated DateTime 04/05/2025 142/82 mm[Hg] Jocelyn Dawkins MD [address] [facility] [address], [place], [address], [facility] 04/05/2025 19:33:10 Date Recorded Body height Body mass index (BMI) Body weight Body temperature Respiratory rate Heart rate Provider Name and Address Organization Details Last Updated DateTime 5 157.48 cm 35.3 kg/m2 90636.3 3 g 98.7 [degF] 18 /min 67 /min Anelfer Cool [facility] 5 19:17:51 Date Recorded Heart rate Systolic And Diastolic Provider Name and Address Organization Details Last Updated DateTime 06/06/2024 67 /min 132/75 mm[Hg] Jocelyn Dawkins MD [address] [facility] [address], [place], [address], [facility] 06/06/2024 18:37:56 Date Recorded Body height Body temperature Respiratory rate Body mass index (BMI) Body weight Provider Name and Address Organization Details Last Updated DateTime 157.48 cm 97.7 [degF] 18 /min 32.2 kg/m2 96585.2 6 g Anel Travon [facility] 18:06:41 Date Recorded Body height Body mass index (BMI) Body weight Body temperature Respiratory rate Heart rate Systolic And Diastolic Provider Name and Address Organization Details Last Updated DateTime 4 157.48 cm 32.7 kg/m2 92151.0 3 g 97.9 [degF] 18 /min 69 /min 135/70 mm[Hg] Anel Malloyaly [facility] 17:52:03 Social History Question Answer Notes LastModified by Organizat ion Details LastModified Time Tobacco Smoking Status Current Every Day Smoker Almita rudolph, [facility] 02/21/2016 11:33:08 Do You Have An Advance Directive? No Information n ot available 07/04/2021 What Is Your Level Of Caffeine Consumption? Moderate Information not available 07/04/2021 In The 14 Days Before Symptom Onset, Have You Had Close Contact With A Laboratory-confirm ed COVID-19 While That Case Was Ill? No Information n ot available 07/04/2021 In The 14 Days Before Symptom Onset, Have You Had Close Contact With A Person Who Is Under Investigation For COVID-19 While That Person Was Ill? No Information not available 07/04/2021 Have You Been To An Area Known To Be High Risk For COVID-19? No Information not available 07/04/2021 Are There Any Guns Present In Your Home? No Information not available 07/04/2021 Live Alone Or With Others? With Others Information not available 07/04/2021 What Was The Date Of Your Most Recent Tobacco Screening? 12/19/2021 Information not available 12/19/2021 Performs Monthly Self-breast Exam? No Information no t available 07/04/2021 Seat Belts Used Routinely Yes Information not available 07/04/2021 Smoke Alarm In Home Yes Information not available 07/04/2021 How Much Tobacco Do You Smoke? 1 PPD Information not available 09/19/2021 Do You Use Sunscreen Routinely? No Information not available 07/04/2021 Sex: Unknown Functional Status Question Answer Note LastModified by Organization D etails LastModified Time What is your level of alcohol consumption? None [email or web address] Information not available 02/21/2016 Are you able to care for yourself? Yes Information n ot available 07/04/2021 Mental Status None recorded. Family History Relationship Description Onset Age of this Age Resolved Age Notes LastModified by Organization Details LastModified Time Father Malignant neoplasm of lung 65 [email or web address] Not available 2020 11:06:12 Mother Essential hypertension [email or web address] Not available 11:06:12 Mother Diabetes mellitus [email or web address] Not available 2015 11:34:17 Mother Malignant tumor of breast [email or web address] Not available 2020 11:06:12 Mother Malignant neoplasm of liver 93 [email or web address] Not available 2023 18:28:21 Brother Malignant neoplasm of lung 54 [email or web address] Not available 2020 11:06:12 Medical History Condition Response Coronary Artery Disease N Other N Gout N Blood Diseases N Kidney Stones N Hyperthyroidism N Blood Transfusion N Breast Cancer N Lung Disease N Hypothyroidism N Depression N COPD N Defects or Inherited Disease N Developmental or Behavioral Disorders N Breast Problem N Difficulty Swallowing N Anesthesia Complications N Anxiety Disorder N Meniere's disease N Muscle, Joint, or Bone Problems N Obesity N Vision or Eye Problems N Arthritis N Infertility N Polyps N Mental Disorder N Cancer N Varicosities N Stroke N Endometriosis N Bladder or Kidney Problems N High Cholesterol N Liver Disease N Headaches N Fibromyalgia N Kidney Disease N Allergies/Hayfever N Heart Problems N Ear or Hearing Problems N Hospitalizations N Thyroid Problems N GI Problems N ADD/ADHD N Eating Disorder N Skin Problems N Anemia N MRSA exposure N Constipation N Mental Illness N Diabetes N Ovarian Cancer N Bedwetting N Seizures/Epilepsy N Tuberculosis N AIDS/HIV N Congestive Heart Failure (CHF) N Eczema N Abuse/Domestic Violence N Diverticulitis N Asthma N Reflux/GERD N Hepatitis N Heart Disease N Pulmonary Embolism N Chronic Ear Infections N Pre-Eclampsia N Hypertension N Chicken Pox N Autism Spectrum Disorder (ASD) N Osteoporosis N Thrombophilias N Gynecological History Statement/Question Response Date of Last Mammogram 08/20/2017 Obstetrics History GPAL:G 0 P 0 0 0 0 Immunizations Vaccine Type Date Status Note Provider Name and Address Organization Details Recorded Time COVID-19, mRNA, LNP-S, PF, 30 mcg/0.3 mL dose 11/27/19 21 completed Geno Burns [facility] 12/17/2020 11:48:31 COVID-19, mRNA, LNP-S, PF, 30 mcg/0.3 mL dose 06/28/20 21 completed Lucinda Jefferson rudolph [facility] 07/01/2021 12:58:09 COVID-19, mRNA, LNP-S, bivalent, PF, 50 mcg/0.5 mL or 25mcg/0.25 mL dose 07/06/20 22 completed Sylwia Delaney [facility] 07/07/2022 21:51:12 COVID-19, mRNA, LNP-S, PF, sancho-sucrose, 30 mcg/0.3 mL 07/03/20 23 completed Martin Keith [facility] 07/06/2023 13:20:56 zoster recombinant 08/18/20 cancelled patient objection Not Available [facility] 10/01/2019 02:28:13 Pneumococcal conjugate PCV 13 08/18/20 19 cancelled patient objection Not Available [facility] 10/01/2019 02:28:15 Influenza, high-dose, trivalent, PF 08/18/20 19 cancelled patient objection Not Available [facility] 10/01/2019 02:28:16 Tdap 08/18/20 19 cancelled patient objection Not Available [facility] 10/01/2019 02:28:14 Past Encounters Encounter ID Performer Location Encounter Start Date Encounter Closed Date Diagnosis/Indication Diagnosis SNOMED-CT Code Diagnosis ICD10 Code Diagnosis Note [id number] Jocelyn Dawkins MD [place] [employer] [facility], [facility] [address] [place] [address] 02/21/2016 14:34:48 02/21/2016 15:26:59 Renewal of prescription 966902935 Z76.0 Nicotine dependence 5629 4008 F17.200 History of malignant neoplasm of colon 593689549 Z85.038 Vitamin D deficiency 347 90954 E55.9 Hypothyroidism 08481987 E03.9 Viral screening 59437484 4 Z11.59 Painless r ectal bleeding 351799650 K62.5 Active or passive immunization 676488267 Z23 Hyperlipidemia 49852630 E78.5 Gastroesop hageal reflux disease 179054144 K21.9 [id number] Jocelyn Dawkins MD [place] [employer] [facility], [facility] [address] [place] [address] 05/26/2016 14:50:29 05/26/2016 15:58:28 Hypothyroidism 98469277 E03.9 Hyperlipidemia 83005302 E78.5 Nicotine dependence 5629 4008 F17.200 Overweight 980945385 E66 .3 Wheezing 77952917 R06.2 Vitamin D deficiency 347 40038 E55.9 Active or passive immunization 091101108 Z23 refuse flu and pneumonia shots Gastroesop hageal reflux disease 360269227 K21.9 Dysplastic nevus of skin 910442527 D22.9 [id number] Jocelyn Dawkins MD [place] [employer] [facility], [facility] [address] [place] [address] 09/11/2016 11:44:00 09/11/2016 12:51:41 Vitamin D deficiency 66991519 E55.9 Hyperlipidemia 84926834 E78.5 Hypothyroidism 85896394 E03.9 Benign hypertension 1072 5009 I10 Screening for malignant neoplasm of colon 382228343 Z12.11 Active or passive immunization 313023313 Z23 refuse flu [id number] Jocelyn Dawkins MD [place] [employer] [facility], [facility] [address] [place] [address] 04/24/2017 11:52:50 04/24/2017 12:34:09 Hyperlipidemia 35329980 E78.5 Hypothyroidism 61014357 E03.9 Vitamin D deficiency 347 14841 E55.9 Nicotine dependence 5629 4008 F17.200 Screening for malignant neoplasm of cervix 971425197 Z12.4 History of malignant neoplasm of colon 074348898 Z85.038 Rib pain 143166544 R07.8 1 Mixed anxi ety and depressive disorder 782743867 F41.8 [place] [id number] Jocelyn Dawkins MD [place] [employer] [employer] [address] [place] [address] 07/23/2017 12:40:00 07/23/2017 14:10:15 Renewal of prescription 319924678 Z76.0 Hypothyroidism 07214671 E03.9 last TSH 04/27/17 Hyperlipidemia 16730082 E78.5 last LDL 04/27/17 Overweight 401241953 E66 .3 education History of malignant neoplasm of colon 039108407 Z85.038 last C scope 2012 Benign hypertension 1072 5009 I10 on lasix PRN Screening mammography 24 318572 Z12.31 last 08/15/16 Active or passive immunization 489566970 Z23 refuse shots Nicotine dependence 5629 4008 F17.200 education [id number] Jocelyn Dawkins MD [place] [employer] [employer] [address] [place] [address] 05/20/2018 11:26:25 05/20/2018 12:59:23 Renewal of prescription 267036263 Z76.0 Benign hypertension 1072 5009 I10 on lasix PRN Overweight 297075981 E66 .3 education Vitamin D deficiency 347 71103 E55.9 Hypothyroidism 70332162 E03.9 last TSH 17 Hyperlipidemia 44847996 E78.5 last LDL 17 Nicotine dependence 5629 4008 F17.200 education Gastroesop hageal reflux disease without esophagitis 258839269 K21.9 Mixed hyperlipidemia 267 898032 E78.2 Sinusitis 68475657 J32.9 Screening mammography 24 160513 Z12.31 last 08/2017 Screening for malignant neoplasm of cervix 038867848 Z12.4 Screening for malignant neoplasm of colon 206546398 Z12.11 last C scope 08/2017 Active or passive immunization 154204740 Z23 refuse shots [id number] Jocelyn Dawkins MD [place] [employer] [facility], [facility] [address] [place] [address] 11/18/2018 14:05:54 11/18/2018 14:41:53 Benign hypertension 78846179 I10 add losartanco nt' on lasix PRNBP 2 weeks Hypothyroidism 12829215 E03.9 last TSH 05/21/18 Hyperlipidemia 00418399 E78.5 last LDL 05/21/18 Nicotine dependence 5629 4008 F17.200 education , smoking more than 50 years Screening mammography 24 000171 Z12.31 last 08/2018 Screening for malignant neoplasm of colon 495738675 Z12.11 last C scope 08/2017 , recheck 08/2020 Active or passive immunization 102796166 Z23 refuse shots Vitamin D deficiency 347 91197 E55.9 Gastroesop hageal reflux disease without esophagitis 224076157 K21.9 Body mass index 30+ - obesity 764953938 Z68.38 [id number] Jocelyn Dawkins MD [employer] [employer] [address] [place] [address] 05/13/2019 12:31:40 05/13/2019 13:28:11 Benign hypertension 93594568 I10 change losartan to telmisarta ncont' on lasix PRNBP 2 weeks Hypothyroidism 71311948 E03.9 last TSH 05/21/18 Fatigue 97704164 R53.83 Body mass index 30+ - obesity 962437060 Z68.39 Nicotine dependence 5629 4008 F17.200 education , smoking more than 50 yearslast LDCT 12/07/18 Snoring 44719454 R06.83 refuseing sleep study Thyroid nodule 407985052 E04.1 last US 12/07/18 Solitary n odule of lung 612855788 R91.[address] 12/07/18 Atypical chest pain 1025 38554 R07.89 Screening mammography 24 282405 Z12.31 last 08/2018 Screening for malignant neoplasm of cervix 205856157 Z12.4 Screening for malignant neoplasm of colon 138690054 Z12.11 last C scope 08/2017 , recheck 08/2020 Active or passive immunization 970974152 Z23 refuse shots [id number] Jocelyn Dawkins MD [place] [employer] [facility], [employer] [address] [place] [address] 06/07/2019 14:29:53 06/07/2019 15:35:40 Bilateral knee pain 7474300394 2440528 M25.562 Intermitte nt claudication 55340474 I73.9 Swelling o f knee joint 503361175 M25.469 [id number] Jocelyn Dawkins MD [employer] [employer] [address] [place] [address] 08/18/2019 12:05:46 08/18/2019 13:09:45 Adult health examination 051751484 Z00.01 Benign hypertension 1072 5009 I10 last EKG 05/12/19con t' on lasix PRNBP 2 weeks Body mass index 30+ - obesity 641201620 Z68.39 lost 6 LBs on diet Cobalamin deficiency 190 233820 E53.8 last B12 level 05/13/19 Gastroesop hageal reflux disease without esophagitis 839991011 K21.9 controlled on high dose PPI , 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 Goiter 5400642 E04.9 last US 12/08/18 History of malignant neoplasm of colon 053651652 Z85.038 last C scope 2011 Hyperlipidemia 72128077 E78.5 last LDL 05/21/18 Hypothyroidism 37914647 E03.9 last TSH 05/21/18 Nicotine dependence 5629 4008 F17.200 education , smoking more than 50 yearslast LDCT 12/07/18 Osteoarthr itis of knee 516385313 M17.9 seen ortho , Peripheral vascular disease 914217588 I73.9 last CARLOS A 06/08/19 Solitary n odule of lung 792946890 R91.[address] 12/07/18 Vitamin D deficiency 347 32190 E55.9 Atheroscle rosis of aorta 39917385 I70.0 on statin Screening mammography 24 508521 Z12.31 last 08/2018 Screening for malignant neoplasm of cervix 326989674 Z12.4 Screening for malignant neoplasm of colon 968664763 Z12.11 last C scope 08/2017 , recheck 08/2020 Active or passive immunization 875567537 Z23 refuse shots [id number] Jocelyn Dawkins MD [facility] [employer] [facility], [employer] [address] [place] [address] 03/12/2020 18:23:39 03/12/2020 19:20:37 Left hemiparesis 390824075 G81.90 Benign hypertension 1072 5009 I10 last EKG 05/12/19con t' on lasix PRNBP 2 weeks Cobalamin deficiency 190 324426 E53.8 last B12 level 05/13/19 Nicotine dependence 5629 4008 F17.200 education , smoking more than 50 yearslast LDCT 12/07/18 Peripheral vascular disease 555125915 I73.9 last CARLOS A 06/08/19 Solitary n odule of lung 910284989 R91.[address] 12/07/18 Vitamin D deficiency 347 84904 E55.9 Mixed hyperlipidemia 267 102401 E78.2 History of cerebrovascular accident 188909213 Z86.73 Body mass index 30+ - obesity 390069832 Z68.39 education Osteoarthritis 089476329 M19.90 Gastroesop hageal reflux disease without esophagitis 312455000 K21.9 controlled on high dose PPI , 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 Goiter 2028118 E04.9 last US 12/08/18 Hypothyroidism 31565276 E03.9 last TSH 05/21/18 Insomnia 724387016 G47.0 0 Screening mammography 24 459627 Z12.31 last 09/08/19 Screening for malignant neoplasm of cervix 307842761 Z12.4 Screening for malignant neoplasm of colon 647876752 Z12.11 last C scope 08/2017 , recheck 08/2020 Active or passive immunization 922557820 Z23 refuse shots [id number] Jocelyn Dawkins MD [facility], [employer] [address] [place] [address] 06/11/2020 18:04:31 06/11/2020 18:57:35 Benign hypertension 21391733 I10 last EKG 01/31/20con t' on lasix PRNBP 2 weeks Body mass index 30+ - obesity 004247598 Z68.39 education Chronic constipation 236 469446 K59.09 Cobalamin deficiency 190 173306 E53.8 last B12 level 03/23/20Pt stopped B12 Goiter 2479862 E04.9 last US 12/08/18 Hypothyroidism 63800339 E03.9 last TSH 03/23/20 Mixed hyperlipidemia 267 126140 E78.2 last LDL 03/23/20 Peripheral vascular disease 776418925 I73.9 last CARLOS A 06/08/19 History of cerebrovascular accident 887851590 Z86.73 Gastroesop hageal reflux disease without esophagitis 889485874 K21.9 controlled on high dose PPI , 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 Active or passive immunization 910190594 Z23 refuse shots [id number] Jocelyn Dawkins MD [employer] [address] [place] [address] 09/10/2020 17:28:01 09/10/2020 18:08:05 Adult health examination 778888227 Z00.01 Benign hypertension 1072 5009 I10 last EKG 01/31/20con t' on lasix PRNBP 2 weeks Body mass index 30+ - obesity 142235476 Z68.39 education Carotid ar vikas stenosis 88200058 I65.29 recheck 1 year from 06/21/20 Chronic constipation 236 626989 K59.09 stable with 2 colace qhs Cobalamin deficiency 190 307357 E53.8 last B12 level 03/23/20Pt stopped B12 Gastroesop hageal reflux disease without esophagitis 647096244 K21.9 controlled on high dose PPI , 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 Goiter 9011154 E04.9 last US 03/28/20 History of cerebrovascular accident 688724657 Z86.73 with lt hemiparesi s History of malignant neoplasm of colon 055479994 Z85.038 last C scope 08/2017 Hypothyroidism 13331921 E03.9 last TSH 06/12/20 Mixed hyperlipidemia 267 308172 E78.2 last LDL 03/23/20 Nicotine dependence 5629 4008 F17.200 education , smoking more than 50 yearslast LDCT 03/28/20 Osteoarthritis 251462473 M19.90 Peripheral vascular disease 678991234 I73.9 last CARLOS A 06/21/20 Solitary n odule of lung 696305585 R91.[address] 03/26/20 Vitamin D deficiency 347 24493 E55.9 Atheroscle rosis of aorta 08416281 I70.0 on statin Aortic valve stenosis 60 884240 I35.0 last ECHO 01/2020 Left hemiparesis 1100711 00 G81.90 2ry to CVA Menopause 897334466 Z78. 0 last DEXA 11/06/15 Screening mammography 24 002843 Z12.31 last 09/08/19 Screening for malignant neoplasm of cervix 673684803 Z12.4 Screening for malignant neoplasm of colon 311802109 Z12.11 last C scope 08/2017 , recheck 08/2020 Active or passive immunization 533892457 Z23 refuse shots Congestion of nasal sinus 21537695 R09.81 [id number] Jocelyn Dawkins MD [employer], [facility] [address] [place] [address] 12/17/2020 11:12:51 12/17/2020 12:31:10 Aortic valve stenosis 61357394 I35.0 S/P TAVR , cardiac rehab per cardiology Benign hypertension 1072 5009 I10 last EKG 01/31/20con t' on lasix PRNBP 2 weeks Body mass index 30+ - obesity 521907174 Z68.39 education Carotid ar vikas stenosis 17092107 I65.29 recheck 1 year from 06/21/20 History of cerebrovascular accident 880215773 Z86.73 with lt hemiparesi s hold off PT till done cardiac rehab History of malignant neoplasm of colon 608077849 Z85.038 last C scope 08/2017 Hypothyroidism 03962535 E03.9 last TSH 09/10/20 Mixed hyperlipidemia 267 973621 E78.2 last LDL 03/23/20 Nicotine dependence 5629 4008 F17.200 education , smoking more than 50 years last LDCT 03/28/20 Peripheral vascular disease 432486897 I73.9 last CARLOS A 06/21/20 Solitary n odule of lung 421133331 R91.[address] 03/26/20 Screening mammography 24 933564 Z12.31 last 09/08/19 Screening for malignant neoplasm of cervix 756228743 Z12.4 Screening for malignant neoplasm of colon 771964484 Z12.11 last C scope 08/2017 , recheck 08/2020 Active or passive immunization 517297655 Z23 refuse shots [id number] Jocelyn Dawkins MD [employer] [facility], [employer] [address] [place] [address] 03/19/2021 11:49:52 03/19/2021 13:25:01 Headache 72357740 R51.9 Benign hypertension 1072 5009 I10 last EKG 01/28/21con t' on lasix PRNBP 2 weeks Preventive procedure 169 711600 Z29.9 Carotid ar vikas stenosis 92957815 I65.29 recheck 1 year from 06/21/20 Solitary n odule of lung 685765868 R91.[address] 03/26/20rec heck Nicotine dependence 5629 4008 F17.200 education , smoking more than 50 years last LDCT 03/28/20 Right uppe r quadrant pain 830690723 R10.11 Screening mammography 24 326171 Z12.31 last 09/08/19 Screening for malignant neoplasm of cervix 302879347 Z12.4 Screening for malignant neoplasm of colon 031307945 Z12.11 last C scope 08/2017 , recheck 08/2020 Active or passive immunization 624446781 Z23 refuse shots Mixed hyperlipidemia 267 276011 E78.2 last LDL 03/23/20 Peripheral vascular disease 958693477 I73.9 last CARLOS A 06/21/20 [id number] Jocelyn Dawkins MD [employer] [facility], [employer] [address] [place] [address] 06/19/2021 14:11:14 06/19/2021 15:05:49 Benign hypertension 24399524 I10 last EKG 01/28/21con t' on lasix PRNlast optometry 03/2021 Body mass index 25-29 - overweight 756817614 Z68.29 education Goiter 9674653 E04.9 last US 03/28/20 Left hemiparesis 6822314 00 G81.90 2ry to CVA Mixed hyperlipidemia 267 668306 E78.2 last LDL 03/23/20 Peripheral vascular disease 048810102 I73.9 last CARLOS A 06/21/20 Vitamin D deficiency 347 62194 E55.9 Nicotine dependence 5629 4008 F17.200 education , smoking more than 50 years last LDCT 03/28/20 Screening mammography 24 993628 Z12.31 last mammogram 05/07/21 Screening for malignant neoplasm of cervix 024686199 Z12.4 asymptomat ic Screening for malignant neoplasm of colon 959932694 Z12.11 last C scope 08/2017 , recheck 08/2020 Active or passive immunization 575842126 Z23 refuse shots Snoring 14636590 R06.83 sleep study [id number] Jocelyn Dawkins MD [facility] [employer] [employer] [address] [place] [address] 09/19/2021 12:45:06 09/19/2021 13:58:52 Adult health examination 446578363 Z00.01 Vitamin D deficiency 347 44947 E55.9 Overactive urinary bladder 010453642 N32.81 Benign hypertension 1072 5009 I10 last EKG 01/28/21con t' on lasix PRNlast optometry 03/2021will change to losartan 2ry to coughBP 2 weeks Carotid ar vikas stenosis 65472827 I65.29 recheck 1 year from 06/21/20 Chronic constipation 236 679892 K59.09 stable with 2 colace qhs Cobalamin deficiency 190 144139 E53.8 last B12 level 03/23/20Pt stopped B12 Gastroesop hageal reflux disease without esophagitis 996276926 K21.9 controlled on high dose PPI , 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 0 last DEXA 11/06/15 Mixed hyperlipidemia 267 330641 E78.2 last LDL 03/19/21 Nicotine dependence 5629 4008 F17.200 education , smoking more than 50 years last LDCT 03/27/21 Non-alcoho lic fatty liver 018772265 K76.0 education Osteoarthritis 830222949 M19.90 education Peripheral vascular disease 991623352 I73.9 last CARLOS A 07/04/21 Solitary n odule of lung 485866311 R91.[address] 03/27/21rec heck Snoring 05742095 R06.83 sleep study Atheroscle rosis of aorta 23936486 I70.0 on statin Aortic valve stenosis 60 506729 I35.0 S/P TAVR , cardiac rehab per cardiology Left foot drop 903323722 1 03446 M21.372 Screening mammography 24 674004 Z12.31 last mammogram 05/07/21 Screening for malignant neoplasm of cervix 507494034 Z12.4 asymptomat ic Screening for malignant neoplasm of colon 229257231 Z12.11 last C scope 08/2017 , recheck 08/2020 Active or passive immunization 989654179 Z23 refuse shots [id number] Jocelyn Dawkins MD [employer] [address] [place] [address] 12/19/2021 11:46:29 12/19/2021 12:30:02 Pain of left ankle joint 0416058465 8764695 M25.572 Benign hypertension 1072 5009 I10 last EKG 01/28/21las t optometry 03/2021incr ease losartanBP 2 weeks Carotid ar vikas stenosis 00026743 I65.29 recheck 1 year from 09/20/21 Cobalamin deficiency 190 237544 E53.8 last B12 level 09/23/21Pt stopped B12 History of cerebrovascular accident 342892016 Z86.73 with lt carlota paresis Hypothyroidism 50362078 E03.9 last TSH 09/23/21 Mixed hyperlipidemia 267 266647 E78.2 last LDL 09/23/21 Nicotine dependence 5629 4008 F17.200 education , smoking more than 50 years last LDCT 03/27/21 Peripheral vascular disease 265407907 I73.9 last CARLOS A 07/04/21 Solitary n odule of lung 494573501 R91.[address] 03/27/21rec heck Screening mammography 24 750139 Z12.31 last mammogram 05/07/21 Screening for malignant neoplasm of cervix 866934553 Z12.4 asymptomat ic Screening for malignant neoplasm of colon 770636047 Z12.11 last C scope 08/2017 , recheck 08/2020 Active or passive immunization 360641831 Z23 refuse shots Vitamin D deficiency 347 66468 E55.9 Urinary incontinence 165 669203 R32 [id number] Jocelyn Dawkins MD [facility] [employer] [facility], [employer] [address] [place] [address] 04/01/2022 17:03:52 04/01/2022 17:57:50 Benign hypertension 50858443 I10 last EKG 01/28/21las t optometry 03/2021on losartanBP 2 weeks History of cerebrovascular accident 657776466 Z86.73 with lt carlota paresis Hypothyroidism 18759160 E03.9 last TSH 09/23/21 Body mass index 30+ - obesity 026318847 Z68.39 education Allergic r hinitis caused by pollen 15113938 J30.1 Mixed urin brittany incontinence 280136783 N39.46 Pain of le ft ankle joint 0212356125 5821648 M25.572 Mixed hyperlipidemia 267 102590 E78.2 last LDL 09/23/21 Mixed anxi ety and depressive disorder 052785596 F41.8 No SI, No HI Vitamin D deficiency 347 89272 E55.9 Gastroesop hageal reflux disease without esophagitis 613428335 K21.9 controlled on high dose PPI , education about custodial PPI use Screening mammography 24 473127 Z12.31 last mammogram 05/07/21 Screening for malignant neoplasm of cervix 636101908 Z12.4 asymptomat ic Screening for malignant neoplasm of colon 121379858 Z12.11 last C scope 08/2017 , recheck 08/2020 Active or passive immunization 386167852 Z23 refuse shots History of SARS-CoV-2 29 80712847 48787120 Z86.16 tested +ve 09/2021 [id number] Jocelyn Dawkins MD [facility], [employer] [address] [place] [address] 07/02/2022 17:24:50 07/02/2022 18:54:38 Benign hypertension 31706958 I10 last EKG 01/28/21las t optometry 05/2022good controlBP 2 weeks Carotid ar vikas stenosis 96115287 I65.29 recheck 1 year from 09/20/21 Body mass index 30+ - obesity 985135866 Z68.39 education Cobalamin deficiency 190 012409 E53.8 last B12 level 04/24/22Pt stopped B12 Goiter 5035583 E04.9 last US 07/10/21la st TSH 06/25/21 Hypothyroidism 04472913 E03.9 last TSH 04/03/22 Nicotine dependence 5629 4008 F17.200 education , smoking more than 50 years last LDCT 03/27/21 Overactive urinary bladder 085374976 N32.81 Screening mammography 24 343272 Z12.31 last mammogram 06/24/22 Aortic valve stenosis 60 502958 I35.0 S/P TAVR , cardiac rehab per cardiology Snoring 86625854 R06.83 sleep study Screening for malignant neoplasm of cervix 047965177 Z12.4 asymptomat ic Screening for malignant neoplasm of colon 254667438 Z12.11 last C scope 08/2017 , recheck 08/2020 Active or passive immunization 754611621 Z23 refuse shots Iron defic iency anemia 30186046 D50.9 [id number] Jocelyn Dawkins MD [facility], [facility] [address] [place] [address] 10/08/2022 18:01:56 10/08/2022 19:25:38 Benign hypertension 86575485 I10 last EKG 07/03/22la st optometry 05/2022good controlBP 2 weeks Carotid ar vikas stenosis 64302767 I65.29 recheck 1 year from 09/20/21 Hypothyroidism 39526987 E03.9 last TSH 04/03/22 Mixed hyperlipidemia 267 470323 E78.2 last LDL 09/23/21 Congestion of nasal sinus 34864485 R09.81 Nicotine dependence 5629 4008 F17.200 education , smoking more than 50 years last LDCT 07/16/22 Peripheral vascular disease 784162519 I73.9 last CARLOS A 07/04/21 was [place] Solitary n odule of lung 301584652 R91.[address] 07/16/22rec heck 1 year Screening mammography 24 917634 Z12.31 last mammogram 06/24/22 Screening for malignant neoplasm of cervix 616338091 Z12.4 asymptomat ic Screening for malignant neoplasm of colon 836692392 Z12.11 last C scope 08/2017 , recheck 08/2020 Active or passive immunization 240997451 Z23 refuse shots Mixed anxi ety and depressive disorder 142321253 F41.8 No SI, [place] [id number] Jocelyn Dawkins MD [facility], [facility] [address] [place] [address] 01/12/2023 17:50:56 01/12/2023 18:57:32 Body mass index 30+ - obesity 564112063 Z68.39 educationi ncrease metformin Benign hypertension 1072 5009 I10 last EKG 07/03/22la st optometry 05/2022good controlBP 2 weeks Carotid ar vikas stenosis 51192231 I65.29 recheck 1 year from 09/20/21 Cobalamin deficiency 190 587959 E53.8 last B12 level 04/24/22Pt stopped B12 Obstructiv e sleep apnea of adult 2413133950 103 G47.33 mild on sleep study 07/2022 Hypothyroidism 52475190 E03.9 last TSH 10/15/22 Screening mammography 24 456288 Z12.31 last mammogram 06/24/22 Screening for malignant neoplasm of cervix 206219616 Z12.4 asymptomat ic Screening for malignant neoplasm of colon 893661751 Z12.11 last C scope 08/2017 , recheck 08/2020 Active or passive immunization 143222175 Z23 refuse shots Aortic valve stenosis 60 028823 I35.0 S/P TAVR , cardiac rehab per cardiology Lateral ep icondylitis of right humerus 5993290837 41912 M77.11 voltaren Osteoarthritis 809230666 M19.90 education andicap placard [id number] Jocelyn Dawkins MD [employer] [facility], [facility] [address] [place] [address] 04/27/2023 15:32:20 04/27/2023 16:37:36 Adult health examination 138293206 Z00.01 Anemia 316053287 D64.9 Benign hypertension 1072 5009 I10 last EKG 07/03/22la [facility] optometry 05/2022good controlBP 2 weeks Atheroscle rosis of aorta 02542014 I70.0 on statin Aortic valve stenosis 60 375349 I35.0 S/P TAVR , cardiac rehab per cardiology Allergic r hinitis caused by pollen 21512668 J30.1 stable Carotid ar vikas stenosis 15857899 I65.29 recheck 1 year from 02/05/23 Chronic constipation 236 423081 K59.09 stable with 2 colace qhs Cobalamin deficiency 190 689738 E53.8 last B12 level 03/04/23Pt stopped B12 Gastroesop hageal reflux disease without esophagitis 687462684 K21.9 controlled on high dose PPI , education about custodial PPI use Fatigue 46732861 R53.83 with day time sleepiness Goiter 9601155 E04.9 last US 07/10/21la st TSH 03/04/23 History of cerebrovascular accident 949779983 Z86.73 with lt carlota paresis History of malignant neoplasm of colon 745720415 Z85.038 last C scope 08/2017 History of SARS-CoV-2 29 92119496 60889255 Z86.16 tested +ve 09/2021 Hypocalcemia 4538267 E83 .51 recheck Hypothyroidism 24659623 E03.9 last TSH 10/15/22 Left hemiparesis 0581514 00 G81.90 2ry to CVA Menopause 790073098 Z78. 0 last DEXA 11/06/15 Mixed hyperlipidemia 267 793854 E78.2 last LDL 09/23/21 Mixed urin brittany incontinence 029974604 N39.46 Nicotine dependence 5629 4008 F17.200 education , smoking more than 50 years last LDCT 07/16/22 Non-alcoho lic fatty liver 474139170 K76.0 education Obstructiv e sleep apnea of adult 7981712690 103 G47.33 mild on sleep study 07/2022 Osteoarthritis 803010680 M19.90 educationh andicap placard Peripheral vascular disease 874223159 I73.9 last CARLOS A 07/04/21 was [place] Solitary n odule of lung 004296473 R91.[address] 07/16/22rec heck 1 year Vitamin D deficiency 347 49616 E55.9 Screening mammography 24 409724 Z12.31 last mammogram 06/24/22 Screening for malignant neoplasm of cervix 809466910 Z12.4 asymptomat ic Screening for malignant neoplasm of colon 188430954 Z12.11 last C scope 03/06/23 Active or passive immunization 703172338 Z23 refuse shots Long-term drug therapy 217682805 Z79.899 statin [id number] Jocelyn Dawkins MD [facility] [employer], [facility] [address] [place] [address] 06/10/2023 17:59:38 06/10/2023 18:56:25 Epigastric pain 49213281 R10.13 Right uppe r quadrant pain 335541916 R10.11 Active or passive immunization 220355855 Z23 refuse shots [id number] Jocelyn Dawkins MD [facility], [facility] [address] [place] [address] 07/29/2023 14:57:13 07/29/2023 15:53:18 Pain of toe of left foot 7984952100 77409 M79.675 Gastroesop hageal reflux disease without esophagitis 412294247 K21.9 controlled on high dose PPI , education about custodial PPI use Body mass index 30+ - obesity 872312967 Z68.39 educationi ncrease metformin Hypocalcemia 1997311 E83 .51 recheck Anemia 711999539 D64.9 Carotid ar vikas stenosis 89340893 I65.29 recheck 1 year from 02/05/23 History of cerebrovascular accident 219413393 Z86.73 with lt carlota paresis Mixed hyperlipidemia 267 498002 E78.2 last LDL 04/27/23 Nicotine dependence 5629 4008 F17.200 education , smoking more than 50 years last LDCT 07/16/22 Solitary n odule of lung 805425840 R91.[address] 07/16/22rec heck 1 year Vitamin D deficiency 347 38851 E55.9 last level 04/27/23 Screening mammography 24 226540 Z12.31 last mammogram 06/24/22 Overactive urinary bladder 537637288 N32.81 Active or passive immunization 460900460 Z23 refuse shots [id number] Jocelyn Dawkins MD [employer] [facility], [facility] [address] [place] [address] 11/19/2023 14:59:58 11/19/2023 16:02:45 Benign hypertension 00929122 I10 last EKG 07/03/22la [facility] optometry 05/2022good controlBP 2 weeks Carotid ar vikas stenosis 59987633 I65.29 recheck 1 year from 02/05/23 Cobalamin deficiency 190 365439 E53.8 last B12 level 03/04/23Pt stopped B12 History of cerebrovascular accident 152747283 Z86.73 with lt carlota paresis History of malignant neoplasm of colon 256236321 Z85.038 last C scope 08/2017 Hypothyroidism 53084755 E03.9 last TSH 10/15/22 Mixed hyperlipidemia 267 999915 E78.2 last LDL 04/27/23 Nicotine dependence 5629 4008 F17.200 education , smoking more than 50 years last LDCT 07/16/22 Peripheral vascular disease 701364089 I73.9 last CARLOS A 07/04/21 was [place] 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 7539689130 85032 I69.919 F/U with neurology Solitary n odule of lung 181698376 R91.[address] 07/16/22rec heck 1 year Anemia 683224608 D64.9 Aortic valve stenosis 60 118573 I35.0 S/P TAVR , cardiac rehab per cardiology Screening mammography 24 270401 Z12.31 last mammogram 06/24/22 Screening for malignant neoplasm of cervix 393357779 Z12.4 asymptomat ic Screening for malignant neoplasm of colon 049792988 Z12.11 last C scope 03/06/23 , good 3 years Active or passive immunization 390782293 Z23 refuse shots [id number] Jocelyn Dawkins MD [employer] [facility], [employer] [address] [place] [address] 02/01/2024 18:06:21 02/01/2024 19:46:27 Nausea and vomiting 39199908 R11.2 increase fluids Diarrhea 60927612 R19.7 [id number] Jocelyn Dawkins MD [facility], [employer] [address] [place] [address] 03/09/2024 18:59:55 03/09/2024 19:46:06 Benign hypertension 56845408 I10 last EKG 07/03/22[facility] optometry 05/2022good controlBP 2 weeks Anemia 300711824 D64.9 Body mass index 30+ - obesity 365404541 Z68.39 educationi ncrease metformin History of cerebrovascular accident 534171995 Z86.73 with lt carlota paresis History of malignant neoplasm of colon 720341890 Z85.038 last C scope 03/06/23 Screening mammography 24 145931 Z12.31 last mammogram 06/24/22 Screening for malignant neoplasm of cervix 871945695 Z12.4 asymptomat ic Screening for malignant neoplasm of colon 454960241 Z12.11 last C scope 03/06/23 , good 3 years Active or passive immunization 439526283 Z23 refuse shots Nicotine dependence 5629 4008 F17.200 education , smoking more than 50 years last LDCT 01/25/24see n pulm Solitary n odule of lung 030221152 R91.[address] 01/25/24rec heck 1 yearseen pulm [id number] Jocelyn Dawkins MD [facility], [facility] [address] [place] [address] 06/06/2024 17:17:30 06/06/2024 19:07:58 Anemia 253019923 D64.9 had IV iron Benign hypertension 1072 5009 I10 last EKG 03/09/24[facility] t optometry 11/2023good controlBP 2 weeks Hypothyroidism 13107124 E03.9 last TSH 11/19/23 Mixed hyperlipidemia 267 361374 E78.2 last LDL 11/19/23 Solitary n odule of lung 544254578 R91.[address] 01/25/24rec heck 1 yearseen pulm Fibrosis of lung 6350442 1 J84.10 seen pulm , will check CT yearly Vitamin D deficiency 347 15761 E55.9 last level 04/27/23 Sleep apnea 25353429 G47 .30 decline CPAP Nicotine dependence 5629 4008 F17.200 education , smoking more than 50 years last LDCT 01/25/24see n pulm Aortic valve stenosis 60 610662 I35.0 S/P TAVR , cardiac rehab per cardiology Congestion of nasal sinus 13249932 R09.81 Screening mammography 24 135431 Z12.31 last mammogram 03/10/24 Screening for malignant neoplasm of cervix 558444415 Z12.4 asymptomat ic Contractur e of joint of toe 059830546 M24.575 Family his tory of diabetes mellitus 384328654 Z83.3 son Screening for malignant neoplasm of colon 222887554 Z12.11 last C scope 03/06/23 , good 3 years Active or passive immunization 192420570 Z23 refuse shots [id number] Jocelyn Dawkins MD [facility] [address] [place] [address] 09/05/2024 17:03:11 09/05/2024 18:39:36 Adult health examination 312209741 Z00.01 Benign hypertension 1072 5009 I10 last EKG 03/09/24las t optometry 11/2023good controlBP 2 weeks Carotid ar vikas stenosis 58642512 I65.29 recheck 1 year from 02/05/23 Chronic constipation 236 076961 K59.09 stable with 2 colace qhs Aortic valve stenosis 60 012888 I35.0 S/P TAVR , cardiac rehab per cardiology Allergic r hinitis caused by pollen 06680987 J30.1 stable 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 5748896424 72349 I69.919 F/U with neurology CT of chest abnormal 160 4959221 9481876 R93.89 fibrotic changes Fatigue 47550755 R53.83 with day time sleepiness Fibrosis of lung 9616793 1 J84.10 seen pulm , last CT 01/25/24 Gastroesop hageal reflux disease without esophagitis 756432894 K21.9 controlled on high dose PPI , 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 0 last DEXA 11/06/15 Mixed hyperlipidemia 267 132083 E78.2 last LDL 11/19/23 Mixed urin brittany incontinence 504308532 N39.46 Nicotine dependence 5629 4008 F17.200 education , smoking more than 50 years last LDCT 01/25/24see n pulm Non-alcoho lic fatty liver 969882205 K76.0 education Noncomplia nce with treatment 4766394 Z91.199 education Obstructiv e sleep apnea of adult 0266174788 103 G47.33 mild on sleep study 07/2022 Osteoarthritis 581560408 M19.90 educationh andicap placard Overactive urinary bladder 811008700 N32.81 stable Peripheral vascular disease 710048481 I73.9 last ACRLOS A 07/04/21 was [place] Sleep apnea 61750870 G47 .30 decline CPAP Solitary n odule of lung 711376642 R91.[address] 01/25/24rec heck 1 yearseen pulm Vitamin D deficiency 347 38281 E55.9 last level 04/27/23 Screening mammography 24 042130 Z12.31 last mammogram 03/10/24 Screening for malignant neoplasm of cervix 286071114 Z12.4 asymptomat ic Screening for malignant neoplasm of colon 644868666 Z12.11 last C scope 03/06/23 , good 3 years Active or passive immunization 550175181 Z23 refuse shots Advance di rective discussed with patient 982053809 Z71.89 education [id number] Jocelyn Dawkins MD [facility] [address] [place] [address] 04/05/2025 18:24:00 04/05/2025 20:03:00 Benign hypertension 78777250 I10 last EKG 03/09/24las t optometry 11/2024 per pthigh today ,BP 2 weeks Carotid ar vikas stenosis 21697293 I65.29 recheck 1 year from 10/27/24 Chronic constipation 236 758313 K59.09 stable with 2 colace qhs Aortic valve stenosis 60 491867 I35.0 S/P TAVR , cardiac rehab per cardiology Allergic r hinitis caused by pollen 85618019 J30.1 stable 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 2841959379 05149 I69.919 F/U with neurology CT of chest abnormal 547 8553225 5476986 R93.89 fibrotic changes Fatigue 58610816 R53.83 with day time sleepiness Fibrosis of lung 7645048 1 J84.10 seen pulm , last CT 01/25/24 Gastroesop hageal reflux disease without esophagitis 233210318 K21.9 controlled on high dose PPI , education about custodial PPI use History of cerebrovascular accident 572850951 Z86.73 with lt [place] paresis History of malignant neoplasm of colon 488852186 Z85.038 last C scope 03/06/23 , last CT abd 09/29/24 History of SARS-CoV-2 29 56584392 76814077 Z86.16 tested +ve 09/2021 Hypothyroidism 20021175 E03.9 last TSH 06/08/24 Hypocalcemia 6744650 E83 .51 recheck Left hemiparesis 2529239 00 G81.90 2ry to CVA Long-term drug therapy 179793059 Z79.899 statin Menopause 304324399 Z78. 0 last DEXA 09/10/20 Mixed hyperlipidemia 267 384440 E78.2 last LDL 11/19/23 Mixed urin brittany incontinence 845239383 N39.46 Nicotine dependence 5629 4008 F17.200 education , smoking more than 50 years last LDCT 01/25/24see n pulm Non-alcoho lic fatty liver 257548226 K76.0 education Noncomplia nce with treatment 1179766 Z91.199 education Obstructiv e sleep apnea of adult 4256867770 103 G47.33 mild on sleep study 07/2022 Osteoarthritis 803241198 M19.90 educationh andicap placard Overactive urinary bladder 874773375 N32.81 stable Peripheral vascular disease 282475574 I73.9 last CARLOS A 07/04/21 was NL Sleep apnea 85628707 G47 .30 decline CPAP Solitary n odule of lung 043548458 R91.[address] 01/25/24rec heck 1 yearseen pulm Vitamin D deficiency 347 23737 E55.9 last level 04/27/23 Screening mammography 24 228591 Z12.31 last mammogram 03/10/24 Screening for malignant neoplasm of cervix 687294411 Z12.4 asymptomat ic Screening for malignant neoplasm of colon 403075995 Z12.11 last C scope 03/06/23 , good 3 years Active or passive immunization 689166041 Z23 refuse shots Advance di rective discussed with patient 918903267 Z71.89 education Body mass index 30+ - obesity 608395627 Z68.39 education, Mixed anxi ety and depressive disorder 223610828 F41.8 No SI, No HI Health Concerns Section Related Observation LastModified by Organization Detai ls LastModified Time None Recorded Concern Status LastModified by Organization Details LastModified Time None Recorded Advance Directives Directive N: Payers Insurance Date Sequence Insurance Name Policy Number Policy Trevizo Covered Member ID Trevizo Member ID Guarantor Name 02/19/2024 1 [place] [id number] Jeffery Linn [id number] Veda Samano Andrea-Tami z 04/03/2025 1 [place] [id number] Veda Soria [id number] Veda Hillbs-Tami z 03/09/2024 1 [place] [id number] Jeffery Linn [id number] SM Veda Hillbs-Tami z 09/05/2024 1 [place] [id number] Veda Soria [id number] Veda Hillbs-Tami z 09/05/2024 1 [employer] - DOS PRIOR TO 21 - [facility] [employer] [id number] Veda Soria [id number] Veda Hillbs-Tami z 04/02/2025 2 [place] Veda Rios [id number] Veda Hillbs-Tami z Notes Date Note Type Note Provider Name and Address Organization Details Recorded Time 02/01/2024 text/html Hypertension F/UReported by PatientHPIFor medications, patient reportstaking medications as directedandno side effects from medication. For lifestyle, patient reportsregular exercise,limiting/avoi ding salt, andcompliant with low salt diet. For associated symptoms, patient reportsno dizziness,no lightheadedness,no chest pain,no shortness of breath,no palpitations,no edema,no calf pain with exertion, andno headache. N/V/D 3-4 days Jocelyn Dawkins MD [address] [place] [address] [address], [place], [address], [facility] 02/01/2024 19:43:20 03/09/2024 text/html Medicare Annual Wellness VisitReported by PatientFunctional AbilityFor falls risk assessment, patient reportsno frequent falls while walking,no fall in the past year,no fall since last visit, andno dizziness/vertigo. Hypertension F/UReported by PatientHPIFor medications, patient reportstaking medications as directedandno side effects from medication. For lifestyle, patient reportsregular exercise,limiting/avoi ding salt, andcompliant with low salt diet. For associated symptoms, patient reportsno dizziness,no lightheadedness,no chest pain,no shortness of breath,no palpitations,no edema,no calf pain with exertion, andno headache. Jocelyn Dawkins MD [address] [facility] [address], [place], [address], [facility] 03/09/2024 19:43:22 06/06/2024 text/html Hypertension F/UReported by PatientHPIFor medications, patient reportstaking medications as directedandno side effects from medication. For lifestyle, patient reportsregular exercise,limiting/avoi ding salt, andcompliant with low salt diet. For associated symptoms, patient reportsno dizziness,no lightheadedness,no chest pain,no shortness of breath,no palpitations,no edema,no calf pain with exertion, andno headache. Jocelyn Dawkins MD [address] [facility] [address], [place], [address], [facility] 06/06/2024 18:40:31 09/05/2024 text/html Medicare Annual Wellness VisitReported by PatientSocial/Behavior al HistoryFor diet and nutrition, patient reportshealthy diet. For fracture risk, patient reportsno history of fractures,no recent explained fracture,no sudden unexplained fractures, andno previous musculoskeletal injuries. For physical activity, patient reportsrecent increase in physical activity,good physical condition, anddiscussed exercise habits.Mental Status:For depression risk, patient reportsnever feels sad, empty, or tearful,no loss of interest in activities,no significant changes in weight,no sleep disturbances or insomnia,no agitation,no loss of energy,no feelings of worthlessness or guilt,no thoughts of suicide,no history of depression, andno history of mood disorders. For orientation, patient reportsno disorientation to time,no disorientation to date, andno disorientation to place. For concentration and memory, patient reportsno decreased concentrating ability,no memory lapses or loss, anddoes not forget words. For speech/motor difficulties, patient reportsno speech difficulties,no difficulty expressing formulated concepts,no difficulty with fine manipulative tasks,no difficulty writing/copying,no slowed reaction time, anddoes not knock things over when trying to pick them up.Functional AbilityFor hearing, patient reportsno loss of hearing. For vision, patient reportsno vision problems. For activities of daily living, patient reportsable to bathe with limited or no assistance,able to contol urination and bowels,able to dress with limited or no assistance,able to feed self with limited or no assistance,able to get out of chair or bed with limited or no assistance,able to groom with limited or no assistance, andable to toilet with limited or no assistance. For instrumental activities of daily living, patient reportsable to do house work with limited or no assistance,able to grocery shop with limited or no assistance,able to manage medications with limited or no assistance,able to manage money with limited or no assistance,able to prepare meals with limited or no assistance, andable to use the phone with limited or no assistance. For falls risk assessment, patient reportsno frequent falls while walking,no fall in the past year,no fall since last visit, andno dizziness/vertigo. For home safety, patient reportsuse of seatbelts. Hypertension F/UReported by PatientHPIFor medications, patient reportstaking medications as directedandno side effects from medication. For lifestyle, patient reportsregular exercise,limiting/avoi ding salt, andcompliant with low salt diet. For associated symptoms, patient reportsno dizziness,no lightheadedness,no chest pain,no shortness of breath,no palpitations,no edema,no calf pain with exertion, andno headache. Jocelyn Dawkins MD [address] [place] [address] [address], [place], [address], [facility] 09/05/2024 18:36:54 04/05/2025 text/html Hypertension F/UReported by PatientHPIFor medications, patient reportstaking medications as directedandno side effects from medication. For lifestyle, patient reportsregular exercise,limiting/avoi ding salt, andcompliant with low salt diet. For associated symptoms, patient reportsno dizziness,no lightheadedness,no chest pain,no shortness of breath,no palpitations,no edema,no calf pain with exertion, andno headache. Jocelyn Dawkins MD [address] [place] [address] [address], [place], [address], [facility] 04/05/2025 19:46:40 OBGyn Episode No OBEpisode recorded.
--- OUTSIDE RECORDS SUMMARY | 2025-04-06 16:07 | XMS_ITS | Encounter Summary ---
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 Name Role Phone Jocelyn Zamorano MD Primary Care Provider [phone] Mac Montano MD Unavailable [phone] Marie Newman MD Unavailable Vikram Oneal MD Unavailable Encounter Details Date Type Department Care Team (Latest Contact Info) Description 06/24/2023 Orders Only [facility] Scanning, Provider Social History Tobacco Use Types Packs/Day Years Used Date Smoking Tobacco: Every Day Cigarettes 0.5 61.6 Started: 1965 Smokeless Tobacco: Never Social Connection and Isolat ion Panel [NHANES] Answer Date Recorded In a typical week, how many times do you talk on the phone with family, friends, or neighbors? More than three times a week 02/01/2020 How often do you get togethe r with friends or relatives? Twice a week 02/01/2020 How often do you attend chur ch or mormon services? More than 4 times per year 02/01/2020 Do you belong to any clubs o r organizations such as anabaptist groups, unions, fraternal or athletic groups, or school groups? No 02/01/2020 How often do you attend meet ings of the clubs or organizations you belong to? Never 02/01/2020 Are you , , di vorced, , never , or living with a partner? 02/01/2020 AUDIT-C Answer Date Recorded Q1: How often do you have a drink containing alc ohol? Never 03/06/2023 Average Number of Drinks Not on file 023 Frequency of Binge Drinking Not on file 02/13 Overall Financial Resource Strain (CARDIA) Answe r [...] making you feel afraid or unsafe? 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 Gender Identity Not on file Sexual Orientation Straight 07/08/2020 10 :27 PM CDT documented as of this encounter Plan of Treatment Not on file documented as of this encounter Procedures Procedure Name Priority Date/Time Associated Diagnosis Comments SCAN - RADIOLOGY/IMAGING 06/24/2023 documented in this encounter Results * SCAN - RADIOLOGY/IMAGING (06/24/2023) Anatomical Region Laterality Modality Other us Provider Scanning Final Result documented in this encounter Visit Diagnoses Not on filedocumented in this encounter Care Teams Cement Sack Breaker Relationship Specialty Start Date End Date Jocelyn Zamorano MD [address] [place] [address] PCP - General Internal Medicine 04/04/20 Mac Montano MD [address] [place], [place] [id number] Referring Physician Cardiology 10/11/20 Marie Newman MD [address] [place], [place] [id number] Surgeon Cardiothoracic Surgery 12/11/20 Vikram Oneal MD [address] [place], [place] [id number] Consulting Physician Cardiology 12/11/20 documented as of this encounter
--- OUTSIDE RECORDS SUMMARY | 2025-04-06 16:07 | XMS_ITS | Encounter Summary ---
Author Organization [facility] Address [address] [place] [address] Phone Care Team Providers Care Radio Journalist Name Role Phone Miscellaneous, Not In File Primary Care Provider Unavailable Miscellaneous, Not In File Primary Care Provider Unavailable Jocelyn Zamorano MD Primary Care Provider [phone] Mac Montano MD Unavailable [phone] Marie Newman MD Unavailable Vikram Oneal MD Unavailable [phone] Encounter Details Date Type Department Care Team (Latest Contact Info) Description 01/31/2020 Orders Only [facility] Scanning, Provider Social History Tobacco Use Types Packs/Day Years Used Date Smoking Tobacco: Every Day Smokeless Tobacco: Never Social Connection and Isolat ion Panel [NHANES] Answer Date Recorded In a typical week, how many times do you talk on the phone with family, friends, or neighbors? More than three times a week 02/01/2020 How often do you get togethe r with friends or relatives? Twice a week 02/01/2020 How often do you attend chur ch or confucianism services? More than 4 times per year 02/01/2020 Do you belong to any clubs o r organizations such as episcopalian groups, unions, fraternal or athletic groups, or school groups? No 02/01/2020 How often do you attend meet ings of the clubs or organizations you belong to? Never 02/01/2020 Are you , , di vorced, , never , or living with a partner? 02/01/2020 Overall Financial Resource Strain (CARDIA) Answe r [...] things needed for daily living? No 02/01/2020 Comments No Sex and Gender Information Value Date Recorded Sex Assigned at Not on file Legal Sex Female 11:40 PM READERS' ADVISORY SERVICE LIBRARIAN Gender Identity Not on file Sexual Orientation Straight 07/08/2020 10 :27 PM CDT documented as of this encounter Plan of Treatment Not on file documented as of this encounter Procedures Procedure Name Priority Date/Time Associated Diagnosis Comments CARDIOLOGY DOCUMENT SCAN 01/31/2020 documented in this encounter Results * SCAN - CARDIOLOGY (01/31/2020) Anatomical Region Laterality Modality Other us Provider Scanning [facility] CARDIAC SERVICES PROCEDURES Final Result documented in this encounter Visit Diagnoses Not on filedocumented in this encounter Additional Health Concerns Infection Onset Date Last Indicated Resolved Time COVID: Suspected Comment:For placement 02/02/2020 02/02/2020 02/03/2020 3:57 PM CDT Respiratory Infection (NINFA), contact + droplet Comment:Automatically added due to negative COVID-19 result. 02/03/2020 02/03/2020 02/17/2020 3:0 5 AM CDT COVID19 Comment:Added from the Screening question BPA, identifying patients that tested positive for COVID in the last 14 days and the result is from a facility outside [facility] . 09/30/2021 09/30/2021 10/10/2021 3:05 AM READERS' ADVISORY SERVICE LIBRARIAN documented as of this encounter Care Teams Radio Journalist Relationship Specialty Start Date End Date Miscellaneous, Not In File PCP - General 02/02/20 04/03/20 Miscellaneous, Not In File PCP - General 02/01/20 02/01/20 Jocelyn Zamorano MD [address] [place] [address] PCP - General Internal Medicine 04/04/20 Mac Montano MD [address] [place] [address] Referring Physician Cardiology 10/11/20 Marie Newman MD [address] [place] [address] Surgeon Cardiothoracic Surgery 12/11/20 Vikram Oneal MD [address] [place] [address] Consulting Physician Cardiology 12/11/20 documented as of this encounter
--- OUTSIDE RECORDS SUMMARY | 2025-04-06 16:08 | XMS_ITS | Continuity of Care Document ---
Author Organization [facility] [employer], [email or web address] Address [address] [facility] [address] [place] [address] Care Team Providers Care Director Automotive Name Role Phone JOCELYN ZAMORANO Primary Care Provider [phone] Assessment Encounter Date Assessment Date Assessment LastModified by Organization Details LastModified Time 04/05/2025 04/05/2025 Patient presented for follow up. [...] ED PATIENT 15 2024 05:15P M Jocelyn Zamorano MD Not available Not available Not available Lab vitamin D, 25-hydrox y, total, serum 2024 025 [facility], [address] [facility], [place], [address], 04/05/2025 19:46:09 HbA1c (hemoglob in A1c), blood 2024 025 [facility], [address] [place], [address], 04/05/2025 19:46:08 lipid panel w/ direct LDL, serum 2024 025 [facility], [address], [place], [address], 04/05/2025 19:46:09 TSH, serum or plasma 2024 025 [facility], [address], [place], [address], 04/05/2025 19:46:08 urinalysi s, dipstick 2024 025 [facility], [facility], [address], [place], [address], 04/05/2025 19:45:49 TSH + free T4, serum 2024 [facility], [address], [place], [address], 04/05/2025 19:46:09 Referral None recorded. Procedures None recorded. Surgeries None recorded. Imaging MAMMO, screening , digital, bilateral [address] (Mammography) , [address], [place], [address], 04/05/2025 20:03:00 bone density 2024 025 [place] [id number] [facility]), [address], [address], [place], [address], 04/05/2025 20:03:00 US, liver 2024 025 [place] [id number] [facility]), [address], [address], [place], [address], 04/05/2025 20:03:01 electroca rdiogram [address] [facility], [facility], [address], [place], [address], 04/06/2025 09:13:34 US, duplex, carotid artery 2024 025 [facility], [address], [place], [address], 04/05/2025 20:03:00 CT, chest, w/o contrast 2024 [facility]), [address], [address], [place], [address], 04/05/2025 20:03:00 Medication Orders Wellbutri n XL 150 mg 24 hr tablet, extended release 2024 [facility], [address] [place] [address], [place], [address], 04/05/2025 19:45:51 oxybutyni n chloride ER 10 mg tablet,ex tended release 24 hr 2024 025 [place] [facility], [address] [place] [address], [place], [address], 04/05/2025 19:45:50 metformin ER 500 mg tablet,ex tended release 24 hr 2024 025 [place] [facility], [address] [place] [address], [place], [address], 04/05/2025 19:45:51 Patient TargetsNo targets recorded. Patient Instructions Encounter Date Encounter Id Patient Instructions Last Modified By Organization Details Last Modified Time 04/05/2025 [id number] Peripheral Arterial Disease (PAD): Care Instructions mshenouda [...] Not available 04/05/2025 19:45:41 Reason for Referral None Reported. Results Created Date Observation Date Name Description Value Unit Range Abnormal Flag Note LastModifiedBy Organization Detail LastModifiedTime 03/16/2003/16/2025 [employer] julio ng capac ity [...] 50% Not Available Not Available 04/05/2025 03:25:44 03/16/2003/16/2025 [employer] Iron julio ng capac ity [...] by automated count 142 10*3/ uL low: 74508* 3/uLhi gh: 25448* 3/uL low Not Available Not Available 04/05/2025 [...] Available 03:25:43 03/16/20 25 03/16/2025 Compr ehens srinivas metab olic 2000 panel - Serum or Plasm a glucose [mass/volume ] in serum or plasma 109 mg/dL low: 70mg/d Lhigh: 105mg/ dL high Not Available Not Available 04/05/2025 03:25:43 03/16/20 25 03/16/2025 Compr ehens srinivas metab olic 1999 panel - Serum or Plasm a urea nitrogen [mass/volume ] in serum or plasma 18 mg/dL low: 7mg/dL high: 25mg/d L Not Available Not Available 04/05/2025 03:25:43 03/16/20 25 03/16/2025 Compr ehens srinivas metab olic 1999 panel - Serum or Plasm a creatinine [mass/volume ] in serum or plasma 1 mg/dL low: 0.6mg/ dLhigh : 1.2mg/ dL Not Available Not Available 04/05/2025 03:25:43 03/16/20 25 03/16/2025 Compr ehens srinivas metab olic 1999 panel - Serum or Plasm a sodium [moles/volum e] in serum or plasma 143 text: 136 - 145 mEq/L Not Available Not Available 04/05/2025 03:25:43 03/16/20 25 03/16/2025 Compr ehens srinivas metab olic 2000 panel - Serum or Plasm a potassium [moles/volum e] in serum or plasma 3.8 text: 3.5 - 5.1 mEq/L Not Available Not Available 04/05/2025 03:25:43 03/16/20 25 03/16/2025 Compr ehens srinivas metab olic 2000 panel - Serum or Plasm a chloride [moles/volum e] in serum or plasma 106 text: 98 - 107 mEq/L Not Available Not Available 04/05/2025 03:25:43 03/16/20 25 03/16/2025 Compr ehens srinivas metab olic 2000 panel - Serum or Plasm a bicarbonate [moles/volum e] in serum or plasma 32 text: 21 - 31 mEq/L high Not Available Not Available 04/05/2025 03:25:43 03/16/20 25 03/16/2025 Compr ehens srinivas metab olic 1999 panel - Serum or Plasm a bilirubin.to lino [mass/volume ] in serum or plasma 0.5 mg/dL low: 0.3mg/ dLhigh : 1mg/dL Not Available Not Available 04/05/2025 03:25:43 03/16/20 25 03/16/2025 Compr ehens srinivas metab olic 2000 panel - Serum or Plasm a alkaline phosphatase [enzymatic activity/vol ume] in serum or plasma 55 U/L low: 34U/Lh igh: 104U/L Not Available Not Available 04/05/2025 03:25:43 03/16/20 25 03/16/2025 [facility] panel - Serum or Plasm a aspartate aminotransfe rase [enzymatic activity/vol ume] in serum or plasma 22 U/L low: 13U/Lh igh: 39U/L Not Available Not Available 04/05/2025 03:25:43 03/16/20 25 03/16/2025 [facility] 1999 panel - Serum or Plasm a alanine aminotransfe rase [enzymatic activity/vol ume] in serum or plasma 13 U/L low: 7U/Lhi gh: 52U/L Not Available Not Available 04/05/2025 03:25:43 03/16/20 25 03/16/[address] [facility] [address] [facility] 1999 panel - Serum or Plasm a protein [mass/volume ] in serum or plasma 6.3 g/dL low: 6.4g/d Lhigh: 8.9g/d L low Not Available Not Available 04/05/2025 03:25:43 03/16/20 25 03/16/2025 [facility] 1999 panel - Serum or Plasm a albumin [mass/volume ] in serum or plasma by bromocresol green (bcg) dye binding method 4.4 g/dL low: 3.5g/d Lhigh: 5.7g/d L Not Available Not Available 04/05/2025 03:25:43 03/16/20 25 03/16/2025 [facility] 1999 panel - Serum or Plasm a calcium [mass/volume ] in serum or plasma 9.1 mg/dL low: 8.6mg/ dLhigh : 10.3mg /dL Not Available Not Available 04/05/2025 03:25:43 03/16/20 25 03/16/[address] [facility] [address] [facility] 1999 panel - Serum or Plasm a anion gap in serum or plasma by calculated.4 ions 8.8 text: 7.0 - 15.0 mEq/L Not Available Not Available 04/05/2025 03:25:43 03/16/20 25 03/16/2025 Compr ehens srinivas metab olic 1999 panel - Serum or Plasm a globulin [mass/volume ] in serum by calculation 1.9 g/dL low: 2g/dLh igh: 3.5g/d L low Not Available Not Available 04/05/2025 03:25:43 03/16/20 25 03/16/2025 Compr ehens srinivas metab olic 2000 panel - Serum or [...] 04/05/2025 03:25:43 03/16/20 25 03/16/2025 Compr ehens srinivas metab olic 2000 panel - Serum or Plasm a Unknown Analyte RELEAS E TO PATIEN T->IMM EDIATE IS THE PATIEN T REQUIR ED TO BE FASTIN G FOR 8 HOURS? ->NO Not Available Not Available 03:25:43 03/16/20 25 03/16/2025 Compr ehens srinivas metab olic 2000 panel - Serum or Plasm a interpretati on and review of laboratory results ABNORM AL Not Available Not Available 03:25:43 04/05/20 25 04/06/2025 US, pito x, jeanetht id arter y No observ ation record ed. [address], [facility] [address], [place], [address], 04/06/2025 11:19:58 04/05/20 25 04/06/2025 elect william hills am No observ ation record ed. [address], [facility] [address], [place], [address], 04/06/2025 09:14:33 04/06/2004/05/2025 teofilo hills am No observ ation record ed. [address], [facility] [address], [place], [address], 04/06/2025 09:13:49 Result Notes None recorded. Problems Name Problem SNOMED Code Status Onset Date Resolution Date Notes Provider Name and Address Organization Details Recorded Time Hyperlip idemia 26392774 Completed 06/11/2020 Jocelyn Zamorano MD [address], [place], [address], [facility] 0 18:54:55 Hypothyr oidism 25050515 [facility] 6 11:34:54 Nicotine dependen ce 78601753 Active Almita Gonzalez [facility] 6 11:35:02 Noncompl iance with treatmen t 7952070 Active Almita Gonzalez [facility] 6 11:35:13 Overweig ht 823909539 Completed 09/19/2021 Jocelyn Zamorano MD [address], [place], [address], [facility] 2 13:16:41 Cobalami n deficien cy 729124987 [facility] 6 11:35:28 Vitamin D deficien cy 52175610 [facility] 6 11:35:36 History of malignan t neoplasm of colon 701230670 Active 2015 Jocelyn Zamorano MD [address], [place], [address], [facility] 6 15:02:36 Atherosc lerosis of aorta 08580404 Active 2016 on CXR 04/27/17 Jocelyn Zamorano MD [address], [place], [address], [facility] 7 19:20:38 Benign hyperten jah 76894086 Active 2016 Jocelyn Zamorano MD [address], [place], [address], [facility] 7 13:47:31 Body mass index 30+ - obesity 065290364 Completed 201806/19/2021 Jocelyn Zamorano MD [address], [place], [address], [facility] 5 19:31:13 Gastroes ophageal reflux disease without esophagi tis 162186267 Active 2018 Jocelyn Zamorano MD [address], [place], [address], [facility] 9 14:37:56 Solitary nodule of lung 956692220 Active 2018 Jocelyn Zamorano MD [address], [place], [address], [facility] 9 21:12:51 Bilatera l knee pain Completed 201806/09/2019 Jocelyn Zamorano MD [address], [place], [address], [facility] 9 17:27:34 Osteoart hritis of knee 055908503 Active 2018 Jocelyn Zamorano MD [address], [place], [address], [facility] 9 17:27:31 Peripher al vascular disease 288205304 Active 2018 MILD on CARLOS A 06/08/19 Jocelyn Zamorano MD [address], [place], [address], [facility] 9 20:55:57 Mixed hyperlip idemia 165074877 Active 2019 Jocelyn Zamorano MD [address], [place], [address], [facility] 0 18:57:53 History of cerebrov ascular accident 923765827 Active 2019 Jocelyn Zamorano MD [address], [place], [address], [facility] 0 19:00:54 Osteoart hritis 613941140 Active 2019 Jocelyn Zamorano MD [address], [place], [address], [facility] 0 19:03:05 Swelling of upper limb 913682355 Completed 201909/19/2021 Jocelyn Zamorano MD [address], [place], [address], [facility] 2 13:16:36 Chronic constipa tion 276268574 Active 2019 Jocelyn Zamorano MD [address], [place], [address], [facility] 0 18:43:16 Carotid artery stenosis 92312790 Active 2019 Jocelyn Zamorano MD [address], [place], [address], [facility] 0 19:47:35 Aortic valve stenosis 78654554 Active 2019 nonrheum atic S/P TAVR 12/10/20 Jocelyn Zamorano MD [address], [place], [address], [facility] 1 17:55:48 Left hemipare sis 247608346 Active 2019 Jocelyn Zamorano MD [address], [place], [address], [facility] 0 17:40:30 Menopaus e Active 2019 Jocelyn Zamorano MD [address], [place], [address], [facility] 0 17:43:31 Increase d frequenc y of urinatio n 170224871 Completed 202009/19/2021 Jocelyn Zamorano MD [address], [place], [address], [facility] 2 13:17:11 Snoring 10762857 Active 2020 Jocelyn Zamorano MD [address], [place], [address], [facility] 1 13:14:40 Overacti ve urinary bladder 926083328 Active 2020 Jocelyn Zamorano MD [address], [place], [address], [facility] 1 13:14:50 Non-alco holic fatty liver 817053166 Active 2020 Jocelyn Zamorano MD [address], [place], [address], [facility] 1 15:03:24 Fatigue 68652365 Active 2020 Jocelyn Zamorano MD [address], [place], [address], [facility] 1 14:02:11 Mixed urinary incontin ence 984412787 Active 2021 Jocelyn Zamorano MD [address], [place], [address], [facility] 2 17:35:49 Pain of left ankle joint 75192731730 692518 Active 2021 Jocelyn Zamorano MD [address], [place], [address], [facility] 2 17:39:07 Allergic rhinitis caused by pollen 76250422 Active 2021 Jocelyn Zamorano MD [address], [place], [address], [facility] 2 17:39:27 History of SARS-CoV -2 70226951512 8960627 Active 2021 Jocelyn Zamorano MD [address], [place], [address], [facility] 2 17:48:19 Anemia 991542803 Active 2021 Jocelyn Zamorano MD [address], [place], [address], [facility] 2 10:02:08 Iron deficien cy 26814886 Active 2021 Jocelyn Zamorano MD [address], [place], [address], [facility] 2 17:09:37 Sleep apnea 05005858 Active 2021 on sleep study 08/06/22 Jocelyn Zamorano MD [address], [place], [address], [facility] 2 16:13:43 Obstruct srinivas sleep apnea of adult 95114956665 03 Active 2022 Jocelyn Zamorano MD [address], [place], [address], [facility] 3 18:31:40 Hypocalc emia 1695681 Active 2022 Jocelyn Zamorano MD [address], [place], [address], [facility] 3 19:15:47 Long-ter m drug therapy Active 2022 Jocelyn Zmaorano MD [address], [place], [address], [facility] 3 16:15:52 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 14889145403 9101 Active 2023 Jocelyn Zamorano MD [address], [place], [address], [facility] 4 15:42:12 CT of chest abnormal 79933089589 005981 Active 2023 Jocelyn Zamorano MD [address], [place], [address], [facility] 4 22:54:13 Fibrosis of lung 68364843 Active 2023 Jocelyn Zamorano MD [address], [place], [address], [facility] 4 18:21:10 Contract ure of joint of toe 343522705 Active 2023 Jocelyn Zamorano MD [address], [place], [address], [facility] 4 18:29:36 Body mass index 30+ - obesity 516620497 Active 2024 Jocelyn Zamorano MD [address], [place], [address], [facility] 5 19:31:12 Mixed anxiety and depressi ve disorder 450190243 Active 2024 Jocelyn Zamorano MD [address], [place], [address], [facility] 5 19:34:55 Problem Notes None recorded. Procedures Surgical History Date Name Laterality Status Provider Name and Address Organization Details Recorded Time 03/06/20 23 Colonoscopy completed Jocelyn Zamorano MD [address], [place], [address], [facility] 04/28/2023 19:24:59 12/11/19 21 percutaneous replacement of aortic valve using fluoroscopic guidance completed Jocelyn Zamorano MD [address], [place], [address], [facility] 12/17/2020 12:18:24 12/15/20 17 Colonoscopy completed Jocelyn Zamorano MD [address], [place], [address], [facility] 05/20/2018 13:34:01 08/20/20 17 Date of Last Mammogram completed [facility] 05/20/2018 12:02:09 10/17/19 12 Colonoscopy completed [facility] 02/21/2016 11:33:23 Partial Hysterectomy completed [facility] 02/21/2016 11:33:31 Oophorectomy completed [facility] 02/21/2016 11:33:37 Colostomy completed [facility] 02/21/2016 11:33:46 Imaging Results None recorded. Procedure Notes None recorded. Medical Equipment None Reported. Allergies Allergen ID Allergen Name Allergen Category Reaction Reaction Severity Criticality Documentation Date Start Date Code Code System Note Provider Name and Address Organization Details Recorded Time 89037 lisinopri l medicatio n cough Not available Not available 09/19/2021 93664 RxNorm Jocelyn Zamorano MD [address], [place], [address], [facility] 2 13:14:51 55936 doxycycli ne Not available nausea Not available low 12/17/2022 3640 RxNorm Jocelyn Zamorano MD [address], [place], [address], [facility] 3 12:40:38 2035 codeine medicatio n Not available Not available Not available 02/21/2016 2670 RxNorm [facility] 6 11:32:29 2036 epinephri ne medicatio n Not available Not available Not available 02/21/2016 3992 RxNorm [facility] 6 11:32:36 2037 erythromy adrien medicatio n Not available Not available Not available 02/21/2016 4053 RxNorm [facility] 6 11:32:42 2038 Product containin g penicilli n (product) medicatio n Not available Not available Not available 02/21/2016 52969 8001 SNOMED [facility] 6 11:32:48 2039 Substance with sulfonami de structure and antibacte rial mechanism of action (substanc e) medicatio n Not available Not available Not available 02/21/2016 61554 8003 SNOMED [facility] 6 11:32:57 2040 Zocor medicatio n Not available Not available Not available 02/21/2016 59321 3 RxNorm [facility] 6 11:33:01 96411 cephalexi n medicatio n rash Not available high 12/30/20242020 2231 RxNorm Not Available anjana - External Data Service - prod 5 13:45:38 47446 simvastat in medicatio n arthralgi a (joint pain) Not available low 12/30/20242019 62359 RxNorm Not Available [employer] - External Data Service - prod 5 13:45:38 58172 epinephri ne hydrochlo ride medicatio n other Not available high 02/22/20251977 362 RxNorm Sever e Garett ness/ tremo rs Not Available [employer] - External Data Service - prod 5 09:52:51 56948 pravastat in medicatio n arthralgi a (joint pain) Not available low 02/22/20252024 36729 RxNorm Not Available anjana - External Data [...] propionate 50 mcg/actuati on nasal spray,suspe nsion [place] 1 spray every day by intranasa l [...] Not Available Not Available Not Available Nasal [place] (sodium chloride) 0.65 % aerosol USE 2 [...] Not Available Not Available Vitals Date Recorded Systolic And Diastolic Provider Name and Address Organization Details Last Updated DateTime 04/05/2025 142/82 mm[Hg] Jocelyn Zamorano MD [address], [place], [address], [facility] 04/05/2025 19:33:10 Date Recorded Body height Body mass index (BMI) Body weight Body temperature Respiratory rate Heart rate Provider Name and Address Organization Details Last Updated DateTime 157.48 cm 35.3 kg/m2 83155.3 3 g 98.7 [degF] 18 /min 67 /min Anel Travon [facility] 19:17:51 Social History Question Answer Notes LastModified by Organizat ion Details LastModified Time Tobacco Smoking Status Current Every Day Smoker Almita rudolph, [facility] 02/21/2016 11:33:08 Do You Have An [...] is your level of alcohol consumption? None [email or web address] Information not available 02/21/2016 Are you able to care for yourself? Yes Information n ot available 07/04/2021 Mental Status None recorded. Family History Relationship Description Onset Age of this Age Resolved Age Notes LastModified by Organization Details LastModified Time Father Malignant neoplasm of lung 65 [email or web address] Not available 2020 11:06:12 Mother Essential hypertension [email or web address] Not available 11:06:12 Mother Diabetes mellitus [email or web address] Not available 2015 11:34:17 Mother Malignant tumor [...] N Breast Cancer N Lung Disease N COPD N Depression N Hypothyroidism N Defects or Inherited Disease N Developmental or Behavioral Disorders N Breast Problem N Difficulty Swallowing N Anesthesia Complications N Meniere's disease N Anxiety Disorder N Muscle, Joint, or Bone Problems N Obesity N Vision or Eye Problems N Arthritis N Polyps N Infertility N Mental Disorder N Cancer N Stroke N Varicosities N Endometriosis N Bladder or Kidney Problems N High Cholesterol N Liver Disease N Fibromyalgia N Headaches N Kidney Disease N Allergies/Hayfever N Heart [...] mcg/0.3 mL dose 11/27/19 21 completed Geno Cruzjillian rudolph [facility] 12/17/2020 11:48:31 COVID-19, mRNA, LNP-S, PF, 30 mcg/0.3 mL dose 06/28/20 21 completed Lucinda Paulino ronni [facility] 07/01/2021 12:58:09 COVID-19, mRNA, LNP-S, bivalent, PF, 50 mcg/0.5 mL or 25mcg/0.25 mL dose 07/06/20 22 completed Sylwiajeanne rudolph [facility] 07/07/2022 21:51:12 COVID-19, mRNA, LNP-S, PF, sancho-sucrose, 30 mcg/0.3 mL 07/03/20 23 completed Martin rudolph [facility] 07/06/2023 13:20:56 zoster recombinant 08/18/20 19 cancelled patient objection Not Available [facility] 10/01/2019 02:28:13 Pneumococcal conjugate PCV 13 08/18/20 19 cancelled patient objection Not Available [facility] 10/01/2019 02:28:15 Influenza, high-dose, trivalent, PF 08/18/20 19 cancelled patient objection Not Available [facility] 10/01/2019 02:28:16 Tdap 08/18/20 19 cancelled patient objection Not Available [facility] 10/01/2019 02:28:14 Past Encounters Encounter ID Performer Location Encounter Start Date Encounter Closed Date Diagnosis/Indication Diagnosis SNOMED-CT Code Diagnosis ICD10 Code Diagnosis Note [id number] [facility] [address] [place] [address] 04/05/2025 18:24:00 04/05/2025 20:03:00 Benign hypertension 41124295 I10 last EKG 03/09/24las t optometry 11/2024 per pthigh today ,BP 2 weeks Carotid ar vikas stenosis 38339932 I65.29 recheck 1 year from 10/27/24 Chronic constipation 236 634382 K59.09 stable with 2 colace qhs Aortic valve stenosis 60 478644 I35.0 S/P TAVR , cardiac rehab per cardiology Allergic r hinitis caused by pollen 17422100 J30.1 stable 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 3341302347 62008 I69.919 F/U with neurology CT of chest abnormal 137 0403761 3063942 R93.89 fibrotic changes Fatigue 10679108 R53.83 with day time sleepiness Fibrosis of lung 4877347 1 J84.10 seen pulm , last CT 01/25/24 Gastroesop hageal reflux disease without esophagitis 888336213 K21.9 controlled on high dose PPI , education about half-way PPI use History of cerebrovascular accident 385530555 Z86.73 with lt carl[place] paresis History of malignant neoplasm of colon 136118410 Z85.038 last C scope 03/06/23 , last CT abd 09/29/24 History of SARS-CoV-2 29 25260725 52377070 Z86.16 tested +ve 09/2021 Hypothyroidism 44743775 E03.9 last TSH 06/08/24 Hypocalcemia 6597709 E83 .51 recheck Left hemiparesis 9550833 00 G81.90 2ry to CVA Long-term drug therapy 333148197 Z79.899 statin Menopause 866317263 Z78. 0 last DEXA 09/10/20 Mixed hyperlipidemia 267 924878 E78.2 last LDL 11/19/23 Mixed urin brittany incontinence 352637907 N39.46 Nicotine dependence 5629 4008 F17.200 education , smoking more than 50 years last LDCT 01/25/24see n pulm Non-alcoho lic fatty liver 084964428 K76.0 education Noncomplia nce with treatment 4552531 Z91.199 education Obstructiv e sleep apnea of adult 4327288355 103 G47.33 mild on sleep study 07/2022 Osteoarthritis 182857396 M19.90 educationh andicap placard Overactive urinary bladder 261389480 N32.81 stable Peripheral vascular disease 029639136 I73.9 last CARLOS A 07/04/21 was NL Sleep apnea 34935659 G47 .30 decline CPAP Solitary n odule of lung 144478987 R91.[address] 01/25/24rec heck 1 yearseen pulm Vitamin D deficiency 347 70224 E55.9 last level 04/27/23 Screening mammography 24 142650 Z12.31 last mammogram 03/10/24 Screening for malignant neoplasm of cervix 033179249 Z12.4 asymptomat ic Screening for malignant neoplasm of colon 122473723 Z12.11 last C scope 03/06/23 , good 3 years Active or passive immunization 234433691 Z23 refuse shots Advance di rective discussed with patient 831801105 Z71.89 education Body mass index 30+ - obesity 119917275 Z68.39 education, Mixed anxi ety and depressive disorder 878037238 F41.8 No SI, No HI Health Concerns Section Related Observation LastModified by Organization Detai ls LastModified Time None Recorded Concern Status LastModified by Organization Details LastModified Time None Recorded Payers Encounter Date Sequence Insurance Name Policy Number Policy Trevizo Covered Member ID Trevizo Member ID Guarantor Name 04/05/2025 1 [employer]-ID (PPO) [id number] Veda Gomes pe [id number] Veda Soria 04/05/2025 2 MEDICARE-ID (MEDICARE) Veda Rios [id number] Veda Soria Notes Date Note Type Note Provider Name and Address Organization Details Recorded Time 04/05/2025 text/html Hypertension F/UReported by PatientHPIFor medications, patient reportstaking medications as directedandno side effects from medication. For lifestyle, patient reportsregular exercise,limiting/av oiding salt, andcompliant with low salt diet. For associated symptoms, patient reportsno dizziness,no lightheadedness,no chest pain,no shortness of breath,no palpitations,no edema,no calf pain with exertion, andno headache. Jocelyn Zamorano MD [address] [facility] [address], [place], [address], [facility] 04/05/2025 19:46:40 OBGyn Episode No OBEpisode recorded.
== END 2025-04-06 16:01 | disposition home or self-care (01) ==
LOC: ANHIMG 16:04
PROVIDERS: PCP Internal Medicine; Visit Provider Internal Medicine
DX: Z12.31 Encounter for screening mammogram for malignant neoplasm of breast (principal)
CPT/HCPCS: 77063; 77067